=== PATIENT | female | born 1960 | race Caucasian/White ===

== ENCOUNTER 2019-05-12 10:34 | Observation (INO) | payer BC, OTHER ==
[2019-05-12] MEDS ORDERED: ASPIRIN 81 MG PO STA (11:22)
[2019-05-12] MEDS ORDERED: NITROGLYCERIN SL TABS 0.4 MG TAB SUBLINGUAL STA (11:22)
[2019-05-12] MEDS ORDERED: ACETAMINOPHEN TAB 500 MG TAB PO STA (11:23)
[2019-05-12] MEDS: NITROGLYCERIN OINT 1 INCH/GM PACKET TOPICAL STA ×2 (11:46→11:58)
--- NOTE | 2019-05-12 12:02 | ED ---
General Adult HPI - General Chief complaint: Back Pain/Injury Stated complaint: back pain, sweating Time Seen by Provider: 05/12/19 10:40 Source: patient, RN notes reviewed Mode of arrival: ambulatory Limitations: no limitations - History of Present Illness Initial comments: This a 58-year-old female who presents emergency department with past history of high blood pressure and high cholesterol. Patient also states she has a strong family history of heart disease her father having a heart attack at 57 and mother having intermittent her early 60s. Patient states she started having chest pain at about 8:00 this morning and the pain radiated to her back. Patient denied any shortness of breath but didn't mention she was diaphoretic when she was having this pain. Patient denies any nausea. Patient denies any abdominal pain. Patient denies any vomiting or diarrhea. Patient denies headache patient denies numbness weakness. Patient denies any recent fever chills or cough. Patient states currently she still has the chest pressure. - Related Data Home Medications Medication Instructions Recorded Confirmed Atorvastatin [Lipitor] 20 mg PO HS 01/30/16 05/12/19 Triamterene-Hctz 37.5-25Mg 1 tab PO DAILY 01/30/16 05/12/19 [Dyazide 37.5-25 Capsule] amLODIPine [Norvasc] 5 mg PO DAILY 01/30/16 05/12/19 Biotin 5 mg PO DAILY 05/12/19 05/12/19 Cholecalciferol [Vitamin D3 (25 5,000 unit PO DAILY 05/12/19 05/12/19 Mcg = 1000 Iu)] Ranitidine HCl [Zantac] 150 mg PO HS 05/12/19 05/12/19 Vitamin C/Biotin [Hair, Skin and 1 tab PO DAILY 05/12/19 05/12/19 Nails] Allergies Allergy/AdvReac Type Severity Reaction Status Date / Time amoxicillin AdvReac Vomiting Verified 05/12/19 11:10 ciprofloxacin [From Cipro] AdvReac Unknown Verified 05/12/19 11:10 ciprofloxacin HCl AdvReac Unknown Verified 05/12/19 11:10 [From Cipro] ibuprofen AdvReac Unknown Verified 05/12/19 11:10 Review of Systems ROS Statement: Those systems with pertinent positive or pertinent negative responses have been documented in the HPI. ROS Other: All systems not noted in ROS Statement are negative. Past Medical History Past Medical History: Hyperlipidemia, Hypertension History of Any Multi-Drug Resistant Organisms: None Reported Past Surgical History: Hernia Repair Additional Past Surgical History / Comment(s): LEFT OVARY REMOVAL Past Psychological History: No Psychological Hx Reported Smoking Status: Former smoker Past Alcohol Use History: Occasional Past Drug Use History: None Reported General Exam - General Exam Comments Initial Comments: GENERAL: Patient is well-developed and well-nourished. Patient is nontoxic and well- hydrated and is in mild distress. ENT: Neck is soft and supple. No significant lymphadenopathy is noted. Oropharynx is clear. Moist mucous membranes. Neck has full range of motion without eliciting any pain. EYES: The sclera were anicteric and conjunctiva were pink and moist. Extraocular movements were intact and pupils were equal round and reactive to light. Eyelid s were unremarkable. PULMONARY: Unlabored respirations. Good breath sounds bilaterally. No audible rales rhonchi or wheezing was noted. CARDIOVASCULAR: There is a regular rate and rhythm without any murmurs gallops or rubs. ABDOMEN: Soft and nontender with normal bowel sounds. No palpable organomegaly was noted. There is no palpable pulsatile mass. SKIN: Skin is clear with no lesions or rashes and otherwise unremarkable. NEUROLOGIC: Patient is alert and oriented x3. Cranial nerves II through XII are grossly intact. Motor and sensory are also intact. Normal speech, volume and content. Symmetrical smile. MUSCULOSKELETAL: Normal extremities with adequate strength and full range of motion. No lower extremity swelling or edema. No calf tenderness. LYMPHATICS: No significant lymphadenopathy is noted PSYCHIATRIC: Normal psychiatric evaluation. Limitations: no limitations Course Vital Signs 05/12/19 10:38 Temperature 98.1 F Pulse Rate 108 H Respiratory 17 Rate Blood Pressure 142/88 O2 Sat by Pulse 98 Oximetry Medical Decision Making - Medical Decision Making EKG shows normal sinus rhythm at 89 bpm NE interval 262 QRS is 86 QT interval 376 QTC is 457. Patient's EKG shows no ST segment elevation or depression or T wave abnormalities are noted. Patient's chest x-ray showed no acute abnormality. Patient received nitroglycerin sublingual admitted the patient hypotensive but also to the patient's chest pain away completely. Currently the patient is chest pain-free. Because the patient exhibits symptoms of unstable angina I'm starting the patient on heparin. I spoke with the [facility] agreed to admit the patient admitted the patient I continued heparin and aspirin and Nitropaste on the floor. I consult cardiology. - Lab Data Result diagrams: 05/12/19 11:45 05/12/19 11:45 Lab Results 05/12/19 05/12/19 05/12/19 Range/Units 11:45 11:45 11:45 WBC 9.8 (3.8-10.6) k/uL RBC 4.89 (3.80-5.40) m/uL Hgb 14.6 (11.4-16.0) gm/dL Hct 40.1 (34.0-46.0) % MCV 81.9 (80.0-100.0) fL MCH 29.9 (25.0-35.0) pg MCHC 36.5 (31.0-37.0) g/dL RDW 16.8 H (11.5-15.5) % Plt Count 276 (150-450) k/uL Neutrophils % 74 % Lymphocytes % 20 % Monocytes % 4 % Eosinophils % 1 % Basophils % 0 % Neutrophils # 7.2 (1.3-7.7) k/uL Lymphocytes # 1.9 (1.0-4.8) k/uL Monocytes # 0.4 (0-1.0) k/uL Eosinophils # 0.1 (0-0.7) k/uL Basophils # 0.0 (0-0.2) k/uL Anisocytosis Slight PT (9.0-12.0) sec INR (<1.2) APTT (22.0-30.0) sec Sodium 136 L (137-145) mmol/L Potassium 3.9 (3.5-5.1) mmol/L Chloride 98 (98-107) mmol/L Carbon Dioxide 26 (22-30) mmol/L Anion Gap 12 mmol/L BUN 11 (7-17) mg/dL Creatinine 0.75 (0.52-1.04) mg/dL Est GFR (CKD-EPI)AfAm >90 (>60 ml/min/1.73 sqM) Est GFR (CKD-EPI)NonAf 89 (>60 ml/min/1.73 sqM) Glucose 133 H (74-99) mg/dL Calcium 10.5 H (8.4-10.2) mg/dL Magnesium 2.0 (1.6-2.3) mg/dL Total Bilirubin 0.9 (0.2-1.3) mg/dL AST 31 (14-36) U/L ALT 42 (9-52) U/L Alkaline Phosphatase 94 (38-126) U/L Troponin I (0.000-0.034) ng/mL NT-Pro-B Natriuret Pep 20 pg/mL Total Protein 7.5 (6.3-8.2) g/dL Albumin 4.4 (3.5-5.0) g/dL 05/12/19 05/12/19 Range/Units 11:45 11:45 WBC (3.8-10.6) k/uL RBC (3.80-5.40) m/uL Hgb (11.4-16.0) gm/dL Hct (34.0-46.0) % MCV (80.0-100.0) fL MCH (25.0-35.0) pg MCHC (31.0-37.0) g/dL RDW (11.5-15.5) % Plt Count (150-450) k/uL Neutrophils % % Lymphocytes % % Monocytes % % Eosinophils % % Basophils % % Neutrophils # (1.3-7.7) k/uL Lymphocytes # (1.0-4.8) k/uL Monocytes # (0-1.0) k/uL Eosinophils # (0-0.7) k/uL Basophils # (0-0.2) k/uL Anisocytosis PT 9.4 (9.0-12.0) sec INR 0.9 (<1.2) APTT 25.4 (22.0-30.0) sec Sodium (137-145) mmol/L Potassium (3.5-5.1) mmol/L Chloride (98-107) mmol/L Carbon Dioxide (22-30) mmol/L Anion Gap mmol/L BUN (7-17) mg/dL Creatinine (0.52-1.04) mg/dL Est GFR (CKD-EPI)AfAm (>60 ml/min/1.73 sqM) Est GFR (CKD-EPI)NonAf (>60 ml/min/1.73 sqM) Glucose (74-99) mg/dL Calcium (8.4-10.2) mg/dL Magnesium (1.6-2.3) mg/dL Total Bilirubin (0.2-1.3) mg/dL AST (14-36) U/L ALT (9-52) U/L Alkaline Phosphatase (38-126) U/L Troponin I <0.012 (0.000-0.034) ng/mL NT-Pro-B Natriuret Pep pg/mL Total Protein (6.3-8.2) g/dL Albumin (3.5-5.0) g/dL Critical Care Time Critical Care Time: Yes Total Critical Care Time: 35 Disposition Clinical Impression: Unstable angina Disposition: ADMITTED IP TO THIS HOSP Referrals: Cyrus Peck DO [Primary Care Provider] - 1-2 days Time of Disposition: 13:07
[2019-05-12 12:13] LABS: Anisocytosis Slight; Basophils % (A) 0 %; Eosinophils # (A) 0.1 k/uL (0-0.7); Eosinophils % (A) 1 %; HCT 40.1 % (34.0-46.0); HGB 14.6 gm/dL (11.4-16.0); Lymphocytes # (A) 1.9 k/uL (1.0-4.8); Lymphocytes % (A) 20 %; MCH 29.9 pg (25.0-35.0); MCHC 36.5 g/dL (31.0-37.0); MCV 81.9 fL (80.0-100.0); Mean Platelet Volume 6.5; Monocytes # (A) 0.4 k/uL (0-1.0); Monocytes % (A) 4 %; Neutrophils # (A) 7.2 k/uL (1.3-7.7); Neutrophils % (A) 74 %; Platelet Count 276 k/uL (150-450); RBC 4.89 m/uL (3.80-5.40); RDW 16.8 % (11.5-15.5); WBC 9.8 k/uL (3.8-10.6)
--- NOTE | 2019-05-12 12:24 | XR ---
EXAMINATION TYPE: XR chest 2V DATE OF EXAM: 05/12/2019 COMPARISON: 01/30/2016 INDICATION: Chest pain TECHNIQUE: Frontal and lateral views of the chest are obtained. FINDINGS: The heart size is normal. The pulmonary vasculature is normal. The lungs are clear. IMPRESSION: 1. No acute pulmonary process.
[2019-05-12 12:25] LABS: ALT 42 U/L (9-52); AST 31 U/L (14-36); African American GFR (CKD) >90 (>60 ml/min/1.73 sqM); Albumin 4.4 g/dL (3.5-5.0); Alkaline Phosphatase 94 U/L (38-126); Anion Gap 12 mmol/L; Blood Urea Nitrogen 11 mg/dL (7-17); Calcium 10.5 mg/dL (8.4-10.2); Carbon Dioxide 26 mmol/L (22-30); Chloride 98 mmol/L (98-107); Glucose 133 mg/dL (74-99); Potassium 3.9 mmol/L (3.5-5.1); Sodium 136 mmol/L (137-145); Total Bilirubin 0.9 mg/dL (0.2-1.3); Total Protein 7.5 g/dL (6.3-8.2)
[2019-05-12 12:32] LABS: INR 0.9 (<1.2); Partial Thromboplastin Time 25.4 sec (22.0-30.0); Prothrombin Time 9.4 sec (9.0-12.0)
[2019-05-12] MEDS ORDERED: HEPARIN SODIUM,PORCINE 5,000 UNIT/ML 1 ML VIAL IV ONE (13:05)
[2019-05-12] MEDS ORDERED: NITROGLYCERIN SL TABS 0.4 MG TAB SUBLINGUAL PRN (13:07)
[2019-05-12] MEDS ORDERED: HEPARIN SOD,PORK IN 0.45% NACL 25,000 UNIT in 0.45% NACL 1 250ML.BAG IV SCH (13:15)
--- NOTE | 2019-05-12 14:18 | P.CRDCN ---
History of Present Illness History of present illness: This is a pleasant 58-year-old female past medical history significant for hypertension and dyslipidemia. She denies prior history of coronary artery disease or diabetes mellitus. 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 We have hiram asked to see her in consultation for chest pain. She states starting on Sunday she noticed a nagging discomfort in her lower back. She felt as though she pulled a muscle or strained herself somehow. The discomfort was slowly starting to get better. However this morning while at work she noticed a different discomfort in the upper mid back between her shoulder blades like someone was punching her. It then started radiating around to the front of her chest. This was quite persistent and constant for over an hour. She then started feeling dizzy and became diaphoretic. There was no associated shortness of breath, palpitations, nausea or vomiting. Not made worse by deep breathing or movement of the torso. 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 Her chest pain did not increase while walking over. Upon arrival she was having active chest pain. She was given aspirin, nitro and heparin infusion. Her pain slowly started to subside in her chest as well as in the back. She is seen and examined sitting up in bed in no acute distress and chest pain free. No reproducible pain. She does offer that he stress level has been significantly increased over the previous 2 weeks. Regularly, outside of this recent back injury, she is quite active and walks frequently without chest pain or shortness of breath. EKG reveals sinus mechanism with no acute ST or T-wave abnormalities, heart rate 89. Chest xray negative for an acute cardiopulmonary process. Laboratory data reviewed, CBC unremarkable, sodium 136, potassium 3.9, creatinine 0.75, magnesium 2.0, cardiac enzymes negative x1, proBNP 20. Current daily cardiac medications include atorvastatin 20 mg daily, dyazide 37.5/25 mg daily and amlodipine 5 mg daily. At the time of my exam: CONSTITUTIONAL: Denies fever. Denies chills. EYES: Denies blurred vision. Denies vision changes. Denies eye pain. EARS, NOSE, MOUTH & THROAT: Denies headache. Denies sore throat. Denies ear pain. CARDIOVASCULAR: Denies chest pain. Denies shortness of breath. Denies orthopnea. Denies PND. Denies palpitations. RESPIRATORY: Denies cough. GASTROINTESTINAL: Denies abdominal pain. Denies diarrhea. Denies constipation. Denies nausea. Denies vomiting. MUSCULOSKELETAL: Denies myalgias. INTEGUMENTARY: Denies pruitis. Denies rash. NEUROLOGIC: Denies numbness. Denies tingling. Denies weakness. PSYCHIATRIC: Denies anxiety. Denies depression. ENDOCRINE: Denies fatigue. Denies weight change. Denies polydipsia. Denies polyurina. GENITOURINARY: Denies burning, hematuria or urgency with micturation. HEMATOLOGIC: Denies history of anemia. Denies bleeding. Blood pressure 108/71 heart rate 81 afebrile maintaining oxygen saturation on room air GENERAL: This is a 58-year-old female in no apparent distress at the time of my examination. HEENT: Head is atraumatic, normocephalic. Pupils are equal, round. Sclerae anicteric. Conjunctivae are clear. Mucous membranes of the mouth are moist. Neck is supple. There is no jugular venous distention. No carotid bruit is heard. LUNGS: Clear to auscultation no wheezes, rales or rhonchi. No chest wall tenderness is noted on palpation or with deep breathing. HEART: Regular rate and rhythm without murmurs, rubs or gallops. S1 and S2 heard. ABDOMEN: Soft, nontender. Bowel sounds are heard. No organomegaly noted. EXTREMITIES: No evidence of peripheral edema and no calf tenderness noted. VASCULAR: Radial and dorsalis pedis pulses palpated, no evidence of clubbing. NEUROLOGIC: Patient is awake, alert and oriented x3. ASSESSMENT Chest pain, atypical for angina. Hypertension Dyslipidemia PLAN Continue to obtain serial cardiac enzymes to rule out an acute event. Check lipid profile. Obtain 2D echocardiogram to assess cardiac structure and function. Decrease aspirin to 81 mg daily. Further recommendations to follow based on clinical course. Discussed with her the thoughts of undergoing a stress test in the morning if enzymes are normal and she is agreeable to this plan. If abnormality will pursue coronary angiography. Thank you kindly for this consultation. Nurse Practitioner note has been reviewed, I agree with a documented findings and plan of care. Patient was seen and examined. Past Medical History Past Medical History: Hyperlipidemia, Hypertension History of Any Multi-Drug Resistant Organisms: None Reported Past Surgical History: Hernia Repair Additional Past Surgical History / Comment(s): LEFT OVARY REMOVAL Past Psychological History: No Psychological Hx Reported Smoking Status: Former smoker Past Alcohol Use History: Occasional Past Drug Use History: None Reported Medications and Allergies Home Medications Medication Instructions Recorded Confirmed Type Atorvastatin [Lipitor] 20 mg PO HS 01/30/16 05/12/19 History Triamterene-Hctz 37.5-25Mg 1 tab PO DAILY 01/30/16 05/12/19 History [Dyazide 37.5-25 Capsule] amLODIPine [Norvasc] 5 mg PO DAILY 01/30/16 05/12/19 History Biotin 5 mg PO DAILY 05/12/19 05/12/19 History Cholecalciferol [Vitamin D3 (25 5,000 unit PO DAILY 05/12/19 05/12/19 History Mcg = 1000 Iu)] Ranitidine HCl [Zantac] 150 mg PO HS 05/12/19 05/12/19 History Vitamin C/Biotin [Hair, Skin and 1 tab PO DAILY 05/12/19 05/12/19 History Nails] Allergies Allergy/AdvReac Type Severity Reaction Status Date / Time amoxicillin AdvReac Vomiting Verified 05/12/19 11:10 ciprofloxacin [From Cipro] AdvReac Unknown Verified 05/12/19 11:10 ciprofloxacin HCl AdvReac Unknown Verified 05/12/19 11:10 [From Cipro] ibuprofen AdvReac Unknown Verified 05/12/19 11:10 Physical Exam Vitals: Vital Signs Temp Pulse Resp BP Pulse Ox 05/12/19 13:00 81 16 108/71 96 05/12/19 12:30 72 16 111/72 93 L 05/12/19 12:00 81 16 114/78 95 05/12/19 11:30 96 16 130/86 93 L 05/12/19 10:38 98.1 F 108 H 17 142/88 98 Intake and Output 05/11/19 05/12/19 05/12/19 22:59 06:59 14:59 Other: Weight 97.069 kg Results 05/12/19 11:45 05/12/19 11:45 Cardiac Enzymes 05/12/19 05/12/19 Range/Units 11:45 11:45 AST 31 (14-36) U/L Troponin I <0.012 (0.000-0.034) ng/mL Coagulation 05/12/19 Range/Units 11:45 PT 9.4 (9.0-12.0) sec APTT 25.4 (22.0-30.0) sec CBC 05/12/19 Range/Units 11:45 WBC 9.8 (3.8-10.6) k/uL RBC 4.89 (3.80-5.40) m/uL Hgb 14.6 (11.4-16.0) gm/dL Hct 40.1 (34.0-46.0) % Plt Count 276 (150-450) k/uL Comprehensive Metabolic Panel 05/12/19 Range/Units 11:45 Sodium 136 L (137-145) mmol/L Potassium 3.9 (3.5-5.1) mmol/L Chloride 98 (98-107) mmol/L Carbon Dioxide 26 (22-30) mmol/L BUN 11 (7-17) mg/dL Creatinine 0.75 (0.52-1.04) mg/dL Glucose 133 H (74-99) mg/dL Calcium 10.5 H (8.4-10.2) mg/dL AST 31 (14-36) U/L ALT 42 (9-52) U/L Alkaline Phosphatase 94 (38-126) U/L Total Protein 7.5 (6.3-8.2) g/dL Albumin 4.4 (3.5-5.0) g/dL Current Medications Generic Name Dose Route Start Last Admin Trade Name Freq PRN Reason Stop Dose Admin Aspirin 325 mg 05/13/19 09:00 Aspirin PO DAILY [facility] Heparin Sodium/Sodium Chloride 250 mls @ 9.998 mls/hr 05/12/19 13:15 05/12/19 13:43 25,000 unit/ Sodium Chloride IV 10.3 units/kg/hr .Q24H AZALIA 9.998 mls/hr Administration Protocol 10.3 UNITS/KG/HR Nitroglycerin 0.4 mg 05/12/19 13:07 Nitrostat SUBLINGUAL Q5M PRN Chest Pain Nitroglycerin 1 inch 05/12/19 18:00 Nitro-Bid Oint TOPICAL Q6HR AZALIA Intake and Output 05/11/19 05/12/19 05/12/19 22:59 06:59 14:59 Other: Weight 97.069 kg Patient Weight 05/13/19 06:59 Weight 97.069 kg 05/12/19 11:45 05/12/19 11:45
--- NOTE | 2019-05-12 15:34 | ECHOF ---
Referral Reason:cp MEASUREMENTS -------- HEIGHT: 175.3 cm WEIGHT: 97.1 kg BP: 108/71 RVIDd: 2.9 cm (< 3.3) IVSd: 1.3 cm (0.6 - 1.1) LVIDd: 4.3 cm (3.9 - 5.3) LVPWd: 1.3 cm (0.6 - 1.1) IVSs: 1.7 cm LVIDs: 3.1 cm LVPWs: 1.7 cm LA Diam: 3.2 cm (2.7 - 3.8) LAESV Index (A-L): 17.98 ml/m Ao Diam: 3.4 cm (2.0 - 3.7) AV Cusp: 2.1 cm (1.5 - 2.6) MV EXCURSION: 15.618 mm (> 18.000) MV EF SLOPE: 86 mm/s (70 - 150) EPSS: 0.5 cm MV E Ricky: 0.90 m/s MV DecT: 171 ms MV A Ricky: 0.93 m/s MV E/A Ratio: 0.97 TAPSE: 16.59 mm FINDINGS -------- Sinus rhythm. This was a technically good study. The left ventricular size is normal. There is mild concentric left ventricular hypertrophy. Overa ll left ventricular systolic function is normal with, an EF between 55 - 60 %. The diastolic fillin g pattern is normal for the age of the patient 11.16. The right ventricle is normal in size. Normal LA size by volume 22+/-6 ml/m2. The right atrial size is normal. Interatrial and interventricular septum intact. The aortic valve is trileaflet, and appears structurally normal. No aortic stenosis or regurgitation. The mitral valve is normal. There is trace mitral regurgitation. The tricuspid valve appears structurally normal. Trace tricuspid regurgitation present. There is no pulmonic regurgitation present. The aortic root size is normal. Normal inferior vena cava with normal inspiratory collapse consistent with estimated right atrial pre ssure of 5 mmHg. There is no pericardial effusion. CONCLUSIONS -------- 1. Sinus rhythm. 2. This was a technically good study. 3. The left ventricular size is normal. 4. There is mild concentric left ventricular hypertrophy. 5. Overall left ventricular systolic function is normal with, an EF between 55 - 60 %. 6. The diastolic filling pattern is normal for the age of the patient 11.16 7. The right ventricle is normal in size. 8. Normal LA size by volume 22+/-6 ml/m2. 9. The aortic valve is trileaflet, and appears structurally normal. No aortic stenosis or regurgitati on. 10. There is trace mitral regurgitation. 11. Trace tricuspid regurgitation present. 12. There is no pulmonic regurgitation present. 13. The aortic root size is normal. 14. Normal inferior vena cava with normal inspiratory collapse consistent with estimated right atrial pressure of 5 mmHg. 15. There is no pericardial effusion. INSULATION HOSEMAN: Dara Cyr RDCS
[2019-05-12] MEDS ORDERED: NITROGLYCERIN OINT 1 INCH/GM PACKET TOPICAL SCH (18:00)
[2019-05-12 20:07] VITALS: BMI 31.6
[2019-05-12] MEDS ORDERED: FAMOTIDINE 20 MG TAB PO SCH (21:00)
[2019-05-12] MEDS ORDERED: ATORVASTATIN 20 MG TAB PO SCH (21:00)
--- NOTE | 2019-05-12 22:01 | P.HPIM ---
History of Present Illness H&P Date: 05/12/19 Chief Complaint: Chest pressure History of presenting to been: This is a very pleasant 58-year-old patient of Dr. Peck. Chronic stable medical conditions include hyperlipidemia, hypertension, GERD. Patient normally does get low back spasms. Patient is having the same on Sunday. Subsequently she started having episodes of chest discomfort in the central chest associated with perspiration. No shortness of breath. She was dizzy. Did not feel tired. Symptoms last for good 2 or 3 hours by the time she came to the ER she was given extra placed and nitroglycerin sublingual and patient passed out. Patient blood pressure dropped down to about 50-60 systolic. Patient did turn around. No further chest pain. Patient had a stress test several years ago. Otherwise patient rather active. Admitted for unstable angina. Review of systems: GEN.: None EYES: None HEENT: None NECK: None RESPIRATORY: None CARDIOVASCULAR: As above GASTROINTESTINAL: Occasional heartburn GENITOURINARY: None MUSCULOSKELETAL: None LYMPHATICS: None HEMATOLOGICAL: None PSYCHIATRY: None NEUROLOGICAL: None Social history: Lives alone. Alcohol occasionally. No smoking. Physical examination: VITAL SIGNS: 97.6, 85, 122/76, 99% on room air GENERAL: BMI 31.6, sitting up in bed, comfortable. EYES: Pupils equal. Conjunctiva normal. HEENT: External appearance of nose and ears normal, oral cavity grossly normal. NECK: JVD not raised; masses not palpable. HEART: First and second heart sounds are normal; no edema. LUNGS: Respiratory rate normal; clear to auscultation. ABDOMEN: Soft, nontender, liver spleen not palpable, no masses palpable. PSYCH: Alert and oriented x3; mood and affect normal. NEUROLOGICAL: Cranial nerves grossly intact; no facial asymmetry, power and sensation grossly intact. LYMPHATICS: No lymph nodes palpable in the axilla and neck INVESTIGATIONS, reviewed in the clinical context: White count 9.8 hemoglobin 14.6 potassium 3.9 creatinine 0.75 Troponin I 2 negative 2-D echo shows EF of 55-60%. No wall motion abnormality reported EKG tracing personally reviewed by me-normal sinus rhythm Chest x-ray film personally reviewed by me-lung dunbar are clear Assessment: -Possible Unstable angina in a patient whose risk factors include obesity, hyperlipidemia, hypertension -Obesity BMI 30.1.6 -Hyperlipidemia -Essential hypertension -GERD -Chronic lower back muscle spasms Plan: Serial cardiac enzymes in place. Patient is on aspirin. Nitrates. Patient be nothing by mouth from midnight for possible stress test. Home medications are renewed. Cardiology was consulted. Care was discussed with the patient. Questions were answered. Past Medical History Past Medical History: Hyperlipidemia, Hypertension Additional Past Medical History / Comment(s): gerd History of Any Multi-Drug Resistant Organisms: None Reported Past Surgical History: Hernia Repair Additional Past Surgical History / Comment(s): LEFT OVARY REMOVAL Additional Past Anesthesia/Blood Transfusion Reaction / Comment(s): need alot of anesthesia, no blood transfusion Past Psychological History: No Psychological Hx Reported Smoking Status: Former smoker Past Alcohol Use History: Occasional Past Drug Use History: None Reported - Past Family History Mother Family Medical History: Cancer, CVA/TIA, Hyperlipidemia, Hypertension, Myocardial Infarction ([place]) Additional Family Medical History / Comment(s): lung cancer Father History Unknown: Yes Family Medical History: Cancer, Mitral Valve Prolapse (MVP) Medications and Allergies Home Medications Medication Instructions Recorded Confirmed Type Atorvastatin [Lipitor] 20 mg PO HS 01/30/16 01/30/16 History Triamterene-Hctz 37.5-25Mg 1 tab PO DAILY 01/30/16 01/30/16 History [Dyazide 37.5-25 Capsule] amLODIPine [Norvasc] 5 mg PO DAILY 01/30/16 01/30/16 History Biotin 5 mg PO DAILY 05/12/19 History Cholecalciferol [Vitamin D3 (25 5,000 unit PO DAILY 05/12/19 History Mcg = 1000 Iu)] Ranitidine HCl [Zantac] 150 mg PO HS 05/12/19 History Vitamin C/Biotin [Hair, Skin and 1 tab PO DAILY 05/12/19 History Nails] Allergies Allergy/AdvReac Type Severity Reaction Status Date / Time amoxicillin AdvReac Vomiting Verified 05/12/19 19:47 ciprofloxacin [From Cipro] AdvReac Unknown Verified 05/12/19 19:47 ciprofloxacin HCl AdvReac Unknown Verified 05/12/19 19:47 [From Cipro] ibuprofen AdvReac Unknown Verified 05/12/19 19:47 Physical Exam Vitals: Vital Signs Temp Pulse Pulse Resp BP BP Pulse Ox 05/12/19 20:00 85 05/12/19 19:01 97.6 F 85 165/85 99 05/12/19 18:00 73 16 122/76 99 05/12/19 17:30 67 15 134/82 98 05/12/19 17:00 70 18 116/69 05/12/19 16:30 66 17 121/78 99 05/12/19 16:00 69 17 120/81 100 05/12/19 15:30 73 18 127/77 97 05/12/19 15:00 71 18 134/85 99 05/12/19 14:30 73 17 126/84 100 05/12/19 14:00 70 17 113/74 97 05/12/19 13:30 74 16 104/75 96 05/12/19 13:00 81 16 108/71 96 05/12/19 12:30 72 16 111/72 93 L 05/12/19 12:00 81 16 114/78 95 05/12/19 11:30 96 16 130/86 93 L 05/12/19 10:38 98.1 F 108 H 17 142/88 98 Intake and Output 05/12/19 05/12/19 05/12/19 06:59 14:59 22:59 Intake Total 0 Balance 0 Intake: Oral 0 Other: Weight 97.069 kg Results CBC & Chem 7: 05/12/19 11:45 05/12/19 11:45 Labs: Abnormal Lab Results - Last 24 Hours (Table) 05/12/19 05/12/19 Range/Units 11:45 11:45 RDW 16.8 H (11.5-15.5) % Sodium 136 L (137-145) mmol/L Glucose 133 H (74-99) mg/dL Calcium 10.5 H (8.4-10.2) mg/dL Thrombosis Risk Factor Assmnt - Choose All That Apply Any of the Below Risk Factors Present?: No
[2019-05-13 00:11] VITALS: RESP 18
[2019-05-13 01:55] LABS: Cholesterol 220 mg/dL (<200); HDL Cholesterol 55 mg/dL (40-60); LDL Cholesterol,Calculated 129 mg/dL (0-99); Triglycerides 180 mg/dL (<150)
--- NOTE | 2019-05-13 08:47 | P.PN ---
Subjective This is a pleasant 58-year-old female past medical history significant for hypertension and dyslipidemia. She denies prior history of coronary artery disease or diabetes mellitus. 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 She is seen and examined sitting up in bed. She has had no further symptoms of chest discomfort since arriving at the hospital. She also denies shortness of breath, dizziness or palpitations. Blood pressure 126/80 heart rate 79 afebrile maintaining oxygen saturation on room air. Laboratory data revie wed, cardiac enzymes negative 3, LDL 129. Currently maintained on Dyazide 37.5/25 mg daily, atorvastatin 20 mg at bedtime, aspirin 81 mg daily and amlodipine 5 mg daily. Echocardiogram obtained reveals preserved LV systolic function with ejection fraction 55-60%, mild concentric left ventricular hypertrophy. GENERAL: This is a 58-year-old female in no apparent distress at the time of my examination. HEENT: Head is atraumatic, normocephalic. Pupils are equal, round. Sclerae anicteric. Conjunctivae are clear. Mucous membranes of the mouth are moist. Neck is supple. There is no jugular venous distention. No carotid bruit is heard. LUNGS: Clear to auscultation no wheezes, rales or rhonchi. No chest wall tenderness is noted on palpation or with deep breathing. HEART: Regular rate and rhythm without murmurs, rubs or gallops. S1 and S2 heard. EXTREMITIES: No evidence of peripheral edema and no calf tenderness noted. ASSESSMENT Chest pain, atypical for angina. Hypertension Dyslipidemia PLAN Proceed with stress echocardiogram to assess for stress-induced ischemia. Increase atorvastatin to 40 mg at bedtime. If stress test is normal she may be discharged from a cardiac perspective. If abnormal we will consider coronary angiography. Follow-up in the office with Dr. Lacey in 2 weeks. Nurse Practitioner note has been reviewed, I agree with a documented findings and plan of care. Patient was seen and examined. Objective - Vital Signs Vital signs: Vital Signs Temp 97.9 F 05/13/19 07:25 Pulse 79 05/13/19 07:25 Resp 18 05/13/19 07:25 BP 126/80 05/13/19 07:25 Pulse Ox 96 05/13/19 07:25 Intake & Output 05/12/19 05/13/19 05/13/19 18:59 06:59 18:59 Intake Total 0 120 Balance 0 120 Weight 97.069 kg Intake: Oral 0 120 - Labs CBC & Chem 7: 05/12/19 11:45 05/12/19 11:45 Labs: Abnormal Lab Results - Last 24 Hours (Table) 05/12/19 05/12/19 05/12/19 Range/Units 11:45 11:45 11:45 RDW 16.8 H (11.5-15.5) % APTT (22.0-30.0) sec Sodium 136 L (137-145) mmol/L Glucose 133 H (74-99) mg/dL Calcium 10.5 H (8.4-10.2) mg/dL Triglycerides 180 H (<150) mg/dL Cholesterol 220 H (<200) mg/dL LDL Cholesterol, Calc 129 H (0-99) mg/dL 05/13/19 05/13/19 Range/Units 00:56 06:47 RDW (11.5-15.5) % APTT 49.1 H 38.9 H (22.0-30.0) sec Sodium (137-145) mmol/L Glucose (74-99) mg/dL Calcium (8.4-10.2) mg/dL Triglycerides (<150) mg/dL Cholesterol (<200) mg/dL LDL Cholesterol, Calc (0-99) mg/dL
[2019-05-13] MEDS ORDERED: ASPIRIN 81 MG PO SCH (09:00)
[2019-05-13] MEDS ORDERED: ASPIRIN 325 MG TAB PO SCH (09:00)
[2019-05-13] MEDS ORDERED: amLODIPine 5 MG TAB PO SCH (09:00)
[2019-05-13] MEDS ORDERED: TRIAMTERENE-HCTZ 37.5-25MG 1 EACH CAP PO SCH (09:00)
[2019-05-13 11:10] VITALS: BP 118/77; PULSE 77; TEMP 97.6
--- NOTE | 2019-05-13 12:45 | ECHOS ---
STRESS ECHOCARDIOGRAM INDICATIONS: Chest pain. BASELINE HEART RATE: 75 BASELINE BLOOD PRESSURE: 115/66 MAXIMUM HEART RATE: 160 MAXIMUM BLOOD PRESSURE: 195/94 85% MPHR: 139 100% MPHR: 163 METS: 6.2 MAXIMUM STAGE REACHED: 2 TOTAL EXERCISE TIME: 5:03 CLINICAL INFORMATION: Baseline rhythm is sinus mechanism rate 75, normal axis and intervals. Normal electrocardiogram. Baseline blood pressure 115/66 mmHg. Patient status post protocol for 5 minute 3 seconds reaching a peak rate 160 beats per minute which is equal to 98% maximum predicted heart rate. Peak blood pressure 195/94 mmHg. Test was terminated due to fatigue. There was no chest pain. Electrocardiographic monitoring revealed occasional PVCs with couplets and triplets. There was no evidence of diagnostic ischemic ST deviation. FINDINGS: Baseline echocardiogram revealed normal wall motion. At peak exercise, there was normal wall motion augmentation with no hypokinesis or dyskinesis. CONCLUSION: 1. Decreased exercise tolerance with normal echocardiograph response to exercise. 2. Occasional premature ventricular contractions with couplets and triplets. 3. Normal stress echocardiogram with no evidence of stress-induced ischemia. MMODL / IJN: [id number] /
[2019-05-13] MEDS ORDERED: ATORVASTATIN 40 MG TAB PO SCH (21:00)
--- NOTE | 2019-05-14 00:52 | P.DS ---
Providers Date of admission: 05/12/19 13:07 Expected date of discharge: 05/13/19 Attending physician: Zak Diaz Consults: 05/12/19 13:07 Consult Physician Urgent Consulting Provider: [facility] Consult Reason/Comments: Unstable angina Do you want consulting provider notified?: Yes Primary care physician: Cyrus Rezasaint joseph londonotoniel [facility] Course: Chief Complaint: Chest pressure Hospital course: This is a very pleasant 58-year-old patient of Dr. Peck. Chronic stable medical conditions include hyperlipidemia, hypertension, GERD. Patient normally does get low back spasms. Patient is having the same on Sunday. Subsequently she started having episodes of chest discomfort in the central chest associated with perspiration. No shortness of breath. She was dizzy. Did not feel tired. Symptoms last for good 2 or 3 hours by the time she came to the ER she was given extra placed and nitroglycerin sublingual and patient passed out. Patient blood pressure dropped down to about 50-60 systolic. Patient did turn around. No further chest pain. Patient had a stress test several years ago. Otherwise patient rather active. Admitted for unstable angina. Troponins came back negative. Stress echocardiogram was negative for ischemia. Cleared by cardiology. Care was discussed with the patient Consultation: Dr. Lacey from cardiology Physical examination: VITAL SIGNS: 97.6, 77, 18, 11 8/77, 97% room air GENERAL: BMI 31.6, sitting up in bed, comfortable. EYES: Pupils equal. Conjunctiva normal. HEENT: External appearance of nose and ears normal, oral cavity grossly normal. NECK: JVD not raised; masses not palpable. HEART: First and second heart sounds are normal; no edema. LUNGS: Respiratory rate normal; clear to auscultation. ABDOMEN: Soft, nontender, liver spleen not palpable, no masses palpable. PSYCH: Alert and oriented x3; mood and affect normal. INVESTIGATIONS, reviewed in the clinical context: White count 9.8 hemoglobin 14.6 potassium 3.9 creatinine 0.75 Troponin I 2 negative 2-D echo shows EF of 55-60%. No wall motion abnormality reported EKG tracing personally reviewed by me-normal sinus rhythm Chest x-ray film personally reviewed by me-lung dunbar are clear Stress echocardiogram negative Discharge diagnosis: -Left anterior chest wall pain, could be musculoskeletal -Obesity BMI 30.1.6 -Hyperlipidemia -Essential hypertension -GERD -Chronic lower back muscle spasms Disposition: Home Patient Condition at Discharge: Stable Plan - Discharge Summary New Discharge Prescriptions: New Aspirin 81 mg PO DAILY chew Chlorthalidone 25 mg PO DAILY #30 tab Atorvastatin [Lipitor] 40 mg PO HS #30 tab Nitroglycerin Sl Tabs [Nitrostat] 0.4 mg SUBLINGUAL Q5M PRN #25 tab PRN Reason: Chest Pain Continue amLODIPine [Norvasc] 5 mg PO DAILY Ranitidine HCl [Zantac] 150 mg PO HS Biotin 5 mg PO DAILY Vitamin C/Biotin [Hair, Skin and Nails] 1 tab PO DAILY Discontinued Atorvastatin [Lipitor] 20 mg PO HS Triamterene-Hctz 37.5-25Mg [Dyazide 37.5-25 Capsule] 1 tab PO DAILY Cholecalciferol [Vitamin D3 (25 Mcg = 1000 Iu)] 5,000 unit PO DAILY Discharge Medication List amLODIPine [Norvasc] 5 mg PO DAILY 01/30/16 [History] Biotin 5 mg PO DAILY 05/12/19 [History] Ranitidine HCl [Zantac] 150 mg PO HS 05/12/19 [History] Vitamin C/Biotin [Hair, Skin and Nails] 1 tab PO DAILY 05/12/19 [History] Aspirin 81 mg PO DAILY chew 05/13/19 [Rx] Atorvastatin [Lipitor] 40 mg PO HS #30 tab 05/13/19 [Rx] Chlorthalidone 25 mg PO DAILY #30 tab 05/13/19 [Rx] Nitroglycerin Sl Tabs [Nitrostat] 0.4 mg SUBLINGUAL Q5M PRN #25 tab 05/13/19 [Rx] Follow up Appointment(s)/Referral(s): Luis Eduardo Lacey MD [STAFF PHYSICIAN] - 2 Weeks Cyrus Peck DO [Primary Care Provider] - 1 Week Discharge Disposition: HOME SELF-CARE
== END 2019-05-13 15:17 | disposition home or self-care (01) ==
LOC: EC 10:34 → 1SOBS 13:07
PROVIDERS: ADMIT Hospitalist; ATTEND Hospitalist
DX: R07.89 Other chest pain (principal); I11.9 Hypertensive heart disease without heart failure; E78.5 Hyperlipidemia, unspecified; K21.9 Gastro-esophageal reflux disease without esophagitis; M62.830 Muscle spasm of back; I95.9 Hypotension, unspecified; R55 Syncope and collapse; T46.3X5A Adverse effect of coronary vasodilators, initial encounter; E78.00 Pure hypercholesterolemia, unspecified; R61 Generalized hyperhidrosis; R42 Dizziness and giddiness; E66.9 Obesity, unspecified; Z68.31 Body mass index [BMI] 31.0-31.9, adult; Z79.82 Long term (current) use of aspirin; Z79.899 Other long term (current) drug therapy; Z88.0 Allergy status to penicillin; Z88.1 Allergy status to other antibiotic agents; Z88.6 Allergy status to analgesic agent; Z90.721 Acquired absence of ovaries, unilateral; Z87.891 Personal history of nicotine dependence; Z80.1 Family history of malignant neoplasm of trachea, bronchus and lung; Z82.3 Family history of stroke; Z82.49 Family history of ischemic heart disease and other diseases of the circulatory system
CPT/HCPCS: 96376; 96365; 96366; 99285; 36415; 93005; 93306; 93351; 83880; 80061; 80053; 83735; 84484; 85025; 85610; 85730 ×2; 71046; G0378 ×2; J1644 ×2; Q9950

== ENCOUNTER 2019-11-11 23:44 | Emergency (ER) | payer BC ==
[2019-11-11 23:48] VITALS: RESP 18; TEMP 98.7
[2019-11-12 00:10] LABS: Appearance,Urine Cloudy (Clear); Bacteria,Urine Occasional /hpf; Bilirubin,Urine Negative (Negative); Blood,Urine Trace (Negative); Color,Urine Yellow; Glucose,Urine (UA) Negative (Negative); Ketones,Urine 1+ (Negative); Leukocyte Esterase,Urine Small (Negative); Mucus,Urine Occasional /hpf; Nitrite,Urine Negative (Negative); Protein,Urine Trace (Negative); RBC,Urine 3 /hpf (0-5); Specific Gravity,Urine 1.019 (1.001-1.035); Squamous Epithelial Cell,Urine 12 /hpf (0-4); Urobilinogen,Urine <2.0 mg/dL (<2.0); WBC,Urine 5 /hpf (0-5)
[2019-11-12] MEDS ORDERED: ACETAMINOPHEN TAB 325 MG TAB PO STA (00:20)
--- NOTE | 2019-11-12 00:41 | ED ---
Abdominal Pain HPI - General Chief Complaint: Back Pain/Injury Stated Complaint: Rt Flank Pain Time Seen by Provider: 11/11/19 23:53 Source: patient Mode of arrival: ambulatory Limitations: no limitations - History of Present Illness MD Complaint: flank pain Onset/Timin -: hour(s) Location: R flank Radiation: none Migration to: no migration Severity: moderate Quality: sharp Consistency: constant Improves With: nothing Worsens With: nothing Associated Symptoms: denies other symptoms Treatments Prior to Arrival: NSAIDs, other (Cyclobenzaprine) - Related Data Home Medications Medication Instructions Recorded Confirmed amLODIPine [Norvasc] 5 mg PO DAILY 01/30/16 01/30/16 Biotin 5 mg PO DAILY 05/12/19 Ranitidine HCl [Zantac] 150 mg PO HS 05/12/19 Vitamin C/Biotin [Hair, Skin and 1 tab PO DAILY 05/12/19 Nails] Previous Rx's Medication Instructions Recorded Aspirin 81 mg PO DAILY chew 05/13/19 Atorvastatin [Lipitor] 40 mg PO HS #30 tab 05/13/19 Chlorthalidone 25 mg PO DAILY #30 tab 05/13/19 Nitroglycerin Sl Tabs [Nitrostat] 0.4 mg SUBLINGUAL Q5M PRN #25 tab 05/13/19 Ciprofloxacin HCl [Cipro] 500 mg PO Q12HR #14 tablet 11/12/19 metroNIDAZOLE [Flagyl] 500 mg PO TID #21 tab 11/12/19 Allergies Allergy/AdvReac Type Severity Reaction Status Date / Time amoxicillin AdvReac Vomiting Verified 05/12/19 19:47 ciprofloxacin [From Cipro] AdvReac Unknown Verified 05/12/19 19:47 ciprofloxacin HCl AdvReac Unknown Verified 05/12/19 19:47 [From Cipro] ibuprofen AdvReac Unknown Verified 05/12/19 19:47 Review of Systems ROS Statement: Those systems with pertinent positive or pertinent negative responses have been documented in the HPI. ROS Other: All systems not noted in ROS Statement are negative. Constitutional: Denies: fever, chills Respiratory: Denies: cough, dyspnea Cardiovascular: Denies: chest pain, edema Gastrointestinal: Reports: as per HPI, constipation. Denies: abdominal pain, nausea, vomiting, diarrhea, melena Genitourinary: Denies: dysuria, frequency, hematuria Musculoskeletal: Reports: as per HPI, back pain Skin: Denies: rash Neurological: Denies: headache, weakness Past Medical History Past Medical History: Diabetes Mellitus, Hyperlipidemia, Hypertension Additional Past Medical History / Comment(s): gerd History of Any Multi-Drug Resistant Organisms: None Reported Past Surgical History: Hernia Repair Additional Past Surgical History / Comment(s): LEFT OVARY REMOVAL Additional Past Anesthesia/Blood Transfusion Reaction / Comment(s): need alot of anesthesia, no blood transfusion Past Psychological History: No Psychological Hx Reported Smoking Status: Former smoker Past Alcohol Use History: Occasional Past Drug Use History: None Reported - Past Family History Mother Family Medical History: Cancer, CVA/TIA, Hyperlipidemia, Hypertension, Myocardial Infarction ([place]) Additional Family Medical History / Comment(s): lung cancer Father History Unknown: Yes Family Medical History: Cancer, Mitral Valve Prolapse (MVP) General Exam Limitations: no limitations General appearance: alert, in no apparent distress Head exam: Present: atraumatic, normocephalic Respiratory exam: Present: normal lung sounds bilaterally. Absent: respiratory distress, wheezes, rales, rhonchi, stridor Cardiovascular Exam: Present: regular rate, normal rhythm, normal heart sounds. Absent: systolic murmur, diastolic murmur, rubs, gallop GI/Abdominal exam: Present: soft. Absent: distended, tenderness, guarding, rebound, rigid, mass, pulsatile mass Extremities exam: Present: normal inspection, normal capillary refill. Absent: pedal edema, calf tenderness Back exam: Present: normal inspection, CVA tenderness (R). Absent: CVA tenderness (L), paraspinal tenderness, vertebral tenderness Neurological exam: Present: alert Skin exam: Present: warm, dry, intact, normal color. Absent: rash Course Vital Signs 11/11/19 23:44 Temperature 98.7 F Pulse Rate 97 Respiratory 18 Rate Blood Pressure 154/82 O2 Sat by Pulse 99 Oximetry Medical Decision Making - Lab Data Result diagrams: 11/12/19 00:32 11/12/19 00:32 Lab Results 11/12/19 11/12/19 11/12/19 Range/Units 00:02 00:32 00:32 WBC 20.6 H (3.8-10.6) k/uL RBC 5.12 (3.80-5.40) m/uL Hgb 14.8 (11.4-16.0) gm/dL Hct 41.2 (34.0-46.0) % MCV 80.4 (80.0-100.0) fL MCH 28.9 (25.0-35.0) pg MCHC 36.0 (31.0-37.0) g/dL RDW 12.7 (11.5-15.5) % Plt Count 333 (150-450) k/uL Neutrophils % 85 % Lymphocytes % 8 % Monocytes % 5 % Eosinophils % 1 % Basophils % 0 % Neutrophils # 17.5 H (1.3-7.7) k/uL Lymphocytes # 1.6 (1.0-4.8) k/uL Monocytes # 1.0 (0-1.0) k/uL Eosinophils # 0.2 (0-0.7) k/uL Basophils # 0.0 (0-0.2) k/uL Sodium 131 L (137-145) mmol/L Potassium 3.8 (3.5-5.1) mmol/L Chloride 91 L (98-107) mmol/L Carbon Dioxide 27 (22-30) mmol/L Anion Gap 13 mmol/L BUN 12 (7-17) mg/dL Creatinine 0.77 (0.52-1.04) mg/dL Est GFR (CKD-EPI)AfAm >90 (>60 ml/min/1.73 sqM) Est GFR (CKD-EPI)NonAf 85 (>60 ml/min/1.73 sqM) Glucose 175 H (74-99) mg/dL Calcium 10.8 H (8.4-10.2) mg/dL Total Bilirubin 0.7 (0.2-1.3) mg/dL AST 22 (14-36) U/L ALT 19 (4-34) U/L Alkaline Phosphatase 98 (38-126) U/L Total Protein 8.2 (6.3-8.2) g/dL Albumin 5.0 (3.5-5.0) g/dL Amylase 57 (30-110) U/L Lipase 96 (23-300) U/L Urine Color Yellow Urine Appearance Cloudy H (Clear) Urine pH 7.0 (5.0-8.0) Ur Specific [place] 1.019 (1.001-1.035) Urine Protein Trace H (Negative) Urine Glucose (UA) Negative (Negative) Urine Ketones 1+ H (Negative) Urine Blood Trace H (Negative) Urine Nitrite Negative (Negative) Urine Bilirubin Negative (Negative) Urine Urobilinogen <2.0 (<2.0) mg/dL Ur Leukocyte Esterase Small H (Negative) Urine RBC 3 (0-5) /hpf Urine WBC 5 (0-5) /hpf Ur Squamous Epith Cells 12 H (0-4) /hpf Urine Bacteria Occasional H (None) /hpf Urine Mucus Occasional H (None) /hpf Disposition Clinical Impression: Diverticulitis Disposition: HOME SELF-CARE Condition: Good Instructions (If sedation given, give patient instructions): Diverticulitis (ED) Prescriptions: Ciprofloxacin HCl [Cipro] 500 mg PO Q12HR #14 tablet metroNIDAZOLE [Flagyl] 500 mg PO TID #21 tab Is patient prescribed a controlled substance at d/c from ED?: No Referrals: Cyrus Peck DO [Primary Care Provider] - 1-2 days
[2019-11-12 00:43] LABS: Basophils % (A) 0 %; Eosinophils # (A) 0.2 k/uL (0-0.7); Eosinophils % (A) 1 %; HCT 41.2 % (34.0-46.0); HGB 14.8 gm/dL (11.4-16.0); Lymphocytes # (A) 1.6 k/uL (1.0-4.8); Lymphocytes % (A) 8 %; MCH 28.9 pg (25.0-35.0); MCV 80.4 fL (80.0-100.0); Mean Platelet Volume 6.8; Monocytes % (A) 5 %; Neutrophils # (A) 17.5 k/uL (1.3-7.7); Neutrophils % (A) 85 %; Platelet Count 333 k/uL (150-450); RBC 5.12 m/uL (3.80-5.40); RDW 12.7 % (11.5-15.5); WBC 20.6 k/uL (3.8-10.6)
[2019-11-12 01:00] LABS: ALT 19 U/L (4-34); AST 22 U/L (14-36); African American GFR (CKD) >90 (>60 ml/min/1.73 sqM); Alkaline Phosphatase 98 U/L (38-126); Amylase 57 U/L (30-110); Anion Gap 13 mmol/L; Blood Urea Nitrogen 12 mg/dL (7-17); Calcium 10.8 mg/dL (8.4-10.2); Carbon Dioxide 27 mmol/L (22-30); Chloride 91 mmol/L (98-107); Glucose 175 mg/dL (74-99); Non-African American GFR(CKD) 85 (>60 ml/min/1.73 sqM); Potassium 3.8 mmol/L (3.5-5.1); Sodium 131 mmol/L (137-145); Total Bilirubin 0.7 mg/dL (0.2-1.3); Total Protein 8.2 g/dL (6.3-8.2)
[2019-11-12] MEDS ORDERED: LEVOFLOXACIN 750MG-D5W PMX 750 MG in DEXTROSE/WATER 1 150ML.BAG IVPB STA (01:42)
[2019-11-12] MEDS ORDERED: metroNIDAZOLE-NS PMX 500 MG in SALINE 1 100ML.BAG IVPB STA (01:42)
--- NOTE | 2019-11-12 01:59 | CT ---
EXAMINATION TYPE: CT abdomen pelvis wo con DATE OF EXAM: 11/12/2019 COMPARISON: None HISTORY: right flank pain CT DLP: 861.8 mGycm Automated exposure control for dose reduction was used. Exam was performed from the diaphragm to the floor the pelvis with no contrast. Lung bases are clear. There is no pleural effusion. There is moderate-sized hiatal hernia. Liver sple en stomach pancreas gallbladder appear normal. Bile ducts are not dilated. There is no adrenal mass. Kidneys have normal size and contour. There is no hydronephrosis. There is moderate fat stranding and fluid in the right paracolic gutter. There are multiple diverticula of the ascending colon. There is mild wall thickening. There is no evidence of free air. There is extensive diverticulosis in the remainder of the colon and more severe in the sigmoid colon. Ureters are not dilated. Bladder distends smoothly. There is no inguinal hernia. There is no free flu id in the pelvis. There is no sign of a pelvic mass. Uterus is anteverted. Lumbar spine is intact. Kd ny pelvis is intact. Proximal femurs and hip joints appear normal. The appendix is posterior and appe ars normal. IMPRESSION: Extensive colonic diverticulosis. There is diverticulitis with moderate fat stranding and fluid in the pericolic gutter involving the a scending colon. No drainable fluid collection.
[2019-11-12] MEDS ORDERED: LEVOFLOXACIN 750 MG TAB PO STA (02:21)
[2019-11-12 02:29] VITALS: BP 130/74; PULSE 80
== END 2019-11-12 03:07 | disposition home or self-care (01) ==
LOC: EC 23:44
DX: K57.32 Diverticulitis of large intestine without perforation or abscess without bleeding (principal); I10 Essential (primary) hypertension; E11.9 Type 2 diabetes mellitus without complications; K21.9 Gastro-esophageal reflux disease without esophagitis; Z79.899 Other long term (current) drug therapy; Z88.0 Allergy status to penicillin; Z88.1 Allergy status to other antibiotic agents; Z88.6 Allergy status to analgesic agent; Z87.891 Personal history of nicotine dependence
CPT/HCPCS: 36415; 74176; 80053; 81001; 82150; 83690; 85025; 87086; 96365; 99284

== ENCOUNTER 2020-03-23 07:31 | Emergency (ER) | payer BC ==
[2020-03-23 07:39] VITALS: TEMP 98.5
[2020-03-23] MEDS ORDERED: ONDANSETRON 4 MG/2 ML VIAL IVP STA (07:50)
[2020-03-23] MEDS ORDERED: MORPHINE SULFATE 4 MG/ML SYRINGE IV STA (07:50)
[2020-03-23] MEDS ORDERED: KETOROLAC 30 MG/ML 1 ML VIAL IVP STA (07:50)
[2020-03-23] MEDS ORDERED: SODIUM CHLORIDE 0.9% 1,000 ML IV STA (07:50)
--- NOTE | 2020-03-23 07:57 | ED ---
Abdominal Pain HPI - General Chief Complaint: Abdominal Pain Stated Complaint: poss diverticulitis Time Seen by Provider: 03/23/20 07:40 Source: patient, RN notes reviewed, old records reviewed Mode of arrival: ambulatory Limitations: no limitations - History of Present Illness Initial Comments: Patient's a 59-year-old female presents return today with left-sided abdominal pain since Sunday. Patient reports she was related to diverticulitis. She's been taking Augmentin that she has had redness in emergency prescription by her PCP for diverticulitis flares. She is taking Augmentin since Sunday morning. Patient states that she has had no fevers with this. Complains of worsening pain and concern for bloating and constipation.. She denies any changes in stools or vomiting. Patient reports that she did have a colonoscopy in February. - Related Data Home Medications Medication Instructions Recorded Confirmed amLODIPine [Norvasc] 5 mg PO DAILY 01/30/16 03/23/20 Vitamin C/Biotin [Hair, Skin and 1 tab PO DAILY 05/12/19 03/23/20 Nails] Acetaminophen Tab [Tylenol] 650 mg PO Q4H PRN 03/23/20 03/23/20 Amoxic-Pot Clav 875-125Mg 1 tab PO Q12HR 03/23/20 03/23/20 [Augmentin 875-125] Cinnamon Bark [Cinnamon] 500 mg PO DAILY 03/23/20 03/23/20 Dicyclomine [Bentyl] 10 mg PO Q6H PRN 03/23/20 03/23/20 Famotidine [Pepcid] 20 mg PO HS 03/23/20 03/23/20 Fluticasone Nasal [place] [Flonase 1 spr EA NOSTRIL DAILY PRN 03/23/20 03/23/20 Nasal [place]] Magnesium 200 mg PO DAILY 03/23/20 03/23/20 Potassium Chloride ER [K-Dur 10] 20 meq PO DAILY 03/23/20 03/23/20 Rosuvastatin Calcium [Crestor] 5 mg PO HS 03/23/20 03/23/20 Vitamin A 8,000 unit PO DAILY 03/23/20 03/23/20 Vitamin B Complex 1 cap PO DAILY 03/23/20 03/23/20 metFORMIN HCL [Glucophage] 500 mg PO BID 03/23/20 03/23/20 Previous Rx's Medication Instructions Recorded Chlorthalidone 25 mg PO DAILY #30 tab 05/13/19 Nitroglycerin Sl Tabs [Nitrostat] 0.4 mg SUBLINGUAL Q5M PRN #25 tab 05/13/19 Ciprofloxacin HCl [Cipro] 500 mg PO BID 10 Days #20 tab 03/23/20 bisacodyL [Dulcolax] 10 mg PO ONCE #12 tablet. 03/23/20 metroNIDAZOLE [Flagyl] 500 mg PO TID #30 tab 03/23/20 Allergies Allergy/AdvReac Type Severity Reaction Status Date / Time ibuprofen Allergy Unknown Verified 03/23/20 08:24 amoxicillin AdvReac Vomiting Verified 03/23/20 08:24 ciprofloxacin [From Cipro] AdvReac Unknown Verified 03/23/20 08:24 ciprofloxacin HCl AdvReac Unknown Verified 03/23/20 08:24 [From Cipro] Review of Systems ROS Statement: Those systems with pertinent positive or pertinent negative responses have been documented in the HPI. ROS Other: All systems not noted in ROS Statement are negative. Past Medical History Past Medical History: Diabetes Mellitus, Hyperlipidemia, Hypertension Additional Past Medical History / Comment(s): gerd History of Any Multi-Drug Resistant Organisms: None Reported Past Surgical History: Hernia Repair Additional Past Surgical History / Comment(s): LEFT OVARY REMOVAL Additional Past Anesthesia/Blood Transfusion Reaction / Comment(s): need alot of anesthesia, no blood transfusion Past Psychological History: No Psychological Hx Reported Smoking Status: Former smoker Past Alcohol Use History: Rare Past Drug Use History: None Reported - Past Family History Mother Family Medical History: Cancer, CVA/TIA, Hyperlipidemia, Hypertension, Myocardial Infarction ([place]) Additional Family Medical History / Comment(s): lung cancer Father History Unknown: Yes Family Medical History: Cancer, Mitral Valve Prolapse (MVP) General Exam - General Exam Comments Initial Comments: 51-year-old female. Alert and oriented. No distress. Limitations: no limitations General appearance: alert, in no apparent distress Head exam: Present: atraumatic, normocephalic, normal inspection Eye exam: Present: normal appearance, PERRL, EOMI. Absent: scleral icterus, conjunctival injection, periorbital swelling ENT exam: Present: normal exam, mucous membranes moist Neck exam: Present: normal inspection. Absent: tenderness, meningismus, lymphadenopathy Respiratory exam: Present: normal lung sounds bilaterally. Absent: respiratory distress, wheezes, rales, rhonchi, stridor Cardiovascular Exam: Present: regular rate, normal rhythm, normal heart sounds. Absent: systolic murmur, diastolic murmur, rubs, gallop, clicks GI/Abdominal exam: Present: soft, tenderness (Left lower quadrant tenderness), normal bowel sounds. Absent: distended, guarding, rebound, rigid Extremities exam: Present: normal inspection, full ROM, normal capillary refill. Absent: tenderness, pedal edema, joint swelling, calf tenderness Back exam: Present: normal inspection Neurological exam: Present: alert, oriented X3, CN II-XII intact Psychiatric exam: Present: normal affect, normal mood Skin exam: Present: warm, dry, intact, normal color. Absent: rash Course Vital Signs 03/23/20 03/23/20 07:32 09:50 Temperature 98.5 F Pulse Rate 96 85 Respiratory 18 14 Rate Blood Pressure 143/95 140/80 O2 Sat by Pulse 98 98 Oximetry Medical Decision Making - Medical Decision Making 51-year-old female presents emergency department today with complaints of left- sided abdominal pain. Concern for diverticulitis flareup. On exam Patient does have some left-sided tenderness. No rebound or guarding. Patient was given IV fluids labwork obtained. She's been taking Augmentin for the past 3 days. CBC was relatively unremarkable. Lactic acid is mildly elevated today. Patient's CT on pelvis was completed and shows no evidence of abscess or free air. There is evidence of acute diverticulitis. Patient was informed of these results. Discussed the possible admission if she had been on Augmentin without any significant improvement of symptoms. She states that she preferred to go home but switching her antibiotic to Cipro and Flagyl. I discussed that if anything worsens to return to the ER but to follow-up with her primary care physician and GI specialist. Patient is agreeable as planned. We'll start the Patient on stool softeners and Cipro and Flagyl. She plans to take Ultram that she has been home for pain. - Lab Data Result diagrams: 03/23/20 07:53 03/23/20 07:53 Lab Results 03/23/20 03/23/20 03/23/20 Range/Units 07:53 07:53 07:53 WBC 12.1 H (3.8-10.6) k/uL RBC 4.83 (3.80-5.40) m/uL Hgb 13.8 (11.4-16.0) gm/dL Hct 40.2 (34.0-46.0) % MCV 83.3 (80.0-100.0) fL MCH 28.6 (25.0-35.0) pg MCHC 34.4 (31.0-37.0) g/dL RDW 13.0 (11.5-15.5) % Plt Count 335 (150-450) k/uL Neutrophils % 78 % Lymphocytes % 15 % Monocytes % 5 % Eosinophils % 1 % Basophils % 0 % Neutrophils # 9.4 H (1.3-7.7) k/uL Lymphocytes # 1.8 (1.0-4.8) k/uL Monocytes # 0.6 (0-1.0) k/uL Eosinophils # 0.1 (0-0.7) k/uL Basophils # 0.0 (0-0.2) k/uL PT 9.5 (9.0-12.0) sec INR 0.9 (<1.2) APTT 26.4 (22.0-30.0) sec Sodium (137-145) mmol/L Potassium (3.5-5.1) mmol/L Chloride (98-107) mmol/L Carbon Dioxide (22-30) mmol/L Anion Gap mmol/L BUN (7-17) mg/dL Creatinine (0.52-1.04) mg/dL Est GFR (CKD-EPI)AfAm (>60 ml/min/1.73 sqM) Est GFR (CKD-EPI)NonAf (>60 ml/min/1.73 sqM) Glucose (74-99) mg/dL Plasma Lactic Acid [place] (0.7-2.0) mmol/L Calcium (8.4-10.2) mg/dL Total Bilirubin (0.2-1.3) mg/dL AST (14-36) U/L ALT (4-34) U/L Alkaline Phosphatase (38-126) U/L Total Protein (6.3-8.2) g/dL Albumin (3.5-5.0) g/dL Amylase (30-110) U/L Lipase (23-300) U/L Urine Color Light Yellow Urine Appearance Clear (Clear) Urine pH 6.5 (5.0-8.0) Ur Specific [place] 1.007 (1.001-1.035) Urine Protein Negative (Negative) Urine Glucose (UA) Negative (Negative) Urine Ketones Negative (Negative) Urine Blood Negative (Negative) Urine Nitrite Negative (Negative) Urine Bilirubin Negative (Negative) Urine Urobilinogen <2.0 (<2.0) mg/dL Ur Leukocyte Esterase Negative (Negative) 03/23/20 03/23/20 Range/Units 07:53 07:53 WBC (3.8-10.6) k/uL RBC (3.80-5.40) m/uL Hgb (11.4-16.0) gm/dL Hct (34.0-46.0) % MCV (80.0-100.0) fL MCH (25.0-35.0) pg MCHC (31.0-37.0) g/dL RDW (11.5-15.5) % Plt Count (150-450) k/uL Neutrophils % % Lymphocytes % % Monocytes % % Eosinophils % % Basophils % % Neutrophils # (1.3-7.7) k/uL Lymphocytes # (1.0-4.8) k/uL Monocytes # (0-1.0) k/uL Eosinophils # (0-0.7) k/uL Basophils # (0-0.2) k/uL PT (9.0-12.0) sec INR (<1.2) APTT (22.0-30.0) sec Sodium 131 L (137-145) mmol/L Potassium 3.8 (3.5-5.1) mmol/L Chloride 95 L (98-107) mmol/L Carbon Dioxide 23 (22-30) mmol/L Anion Gap 13 mmol/L BUN 10 (7-17) mg/dL Creatinine 0.62 (0.52-1.04) mg/dL Est GFR (CKD-EPI)AfAm >90 (>60 ml/min/1.73 sqM) Est GFR (CKD-EPI)NonAf >90 (>60 ml/min/1.73 sqM) Glucose 184 H (74-99) mg/dL Plasma Lactic Acid [place] 2.2 H* (0.7-2.0) mmol/L Calcium 10.1 (8.4-10.2) mg/dL Total Bilirubin 0.7 (0.2-1.3) mg/dL AST 26 (14-36) U/L ALT 21 (4-34) U/L Alkaline Phosphatase 87 (38-126) U/L Total Protein 7.6 (6.3-8.2) g/dL Albumin 4.5 (3.5-5.0) g/dL Amylase 51 (30-110) U/L Lipase 77 (23-300) U/L Urine Color Urine Appearance (Clear) Urine pH (5.0-8.0) Ur Specific [place] (1.001-1.035) Urine Protein (Negative) Urine Glucose (UA) (Negative) Urine Ketones (Negative) Urine Blood (Negative) Urine Nitrite (Negative) Urine Bilirubin (Negative) Urine Urobilinogen (<2.0) mg/dL Ur Leukocyte Esterase (Negative) - Radiology Data Radiology results: report reviewed CT abdomen and pelvis with contrast is acute diverticulitis of the distal sigmoid colon. No abscess formation or free air is identified at this time. Moderate fatty liver. Small moderate-sized title hernia. Disposition Clinical Impression: Diverticulitis Disposition: HOME SELF-CARE Condition: Good Instructions (If sedation given, give patient instructions): Diverticulitis (ED) Additional Instructions: Please use medication as discussed. Please follow up with family doctor if symptoms have not improved over the next two days. Please return to the [facility] room if your symptoms increase or worsen or for any other concerns. Prescriptions: Ciprofloxacin HCl [Cipro] 500 mg PO BID 10 Days #20 tab bisacodyL [Dulcolax] 10 mg PO ONCE #12 tablet. metroNIDAZOLE [Flagyl] 500 mg PO TID #30 tab Is patient prescribed a controlled substance at d/c from ED?: No Referrals: Cyrus Peck DO [Primary Care Provider] - 1-2 days Time of Disposition: 09:43
[2020-03-23 08:04] LABS: Appearance,Urine Clear (Clear); Bilirubin,Urine Negative (Negative); Blood,Urine Negative (Negative); Color,Urine Light Yellow; Glucose,Urine (UA) Negative (Negative); Ketones,Urine Negative (Negative); Leukocyte Esterase,Urine Negative (Negative); Nitrite,Urine Negative (Negative); PH, Urine 6.5 (5.0-8.0); Protein,Urine Negative (Negative); Specific Gravity,Urine 1.007 (1.001-1.035); Urobilinogen,Urine <2.0 mg/dL (<2.0)
[2020-03-23 08:10] LABS: INR 0.9 (<1.2); Partial Thromboplastin Time 26.4 sec (22.0-30.0); Prothrombin Time 9.5 sec (9.0-12.0)
[2020-03-23 08:20] LABS: ALT 21 U/L (4-34); AST 26 U/L (14-36); African American GFR (CKD) >90 (>60 ml/min/1.73 sqM); Albumin 4.5 g/dL (3.5-5.0); Alkaline Phosphatase 87 U/L (38-126); Amylase 51 U/L (30-110); Anion Gap 13 mmol/L; Blood Urea Nitrogen 10 mg/dL (7-17); Calcium 10.1 mg/dL (8.4-10.2); Carbon Dioxide 23 mmol/L (22-30); Chloride 95 mmol/L (98-107); Glucose 184 mg/dL (74-99); Non-African American GFR(CKD) >90 (>60 ml/min/1.73 sqM); Potassium 3.8 mmol/L (3.5-5.1); Sodium 131 mmol/L (137-145); Total Bilirubin 0.7 mg/dL (0.2-1.3); Total Protein 7.6 g/dL (6.3-8.2)
[2020-03-23 08:24] LABS: Basophils % (A) 0 %; Eosinophils # (A) 0.1 k/uL (0-0.7); Eosinophils % (A) 1 %; HCT 40.2 % (34.0-46.0); HGB 13.8 gm/dL (11.4-16.0); Lymphocytes # (A) 1.8 k/uL (1.0-4.8); Lymphocytes % (A) 15 %; MCH 28.6 pg (25.0-35.0); MCHC 34.4 g/dL (31.0-37.0); MCV 83.3 fL (80.0-100.0); Mean Platelet Volume 6.7; Monocytes # (A) 0.6 k/uL (0-1.0); Monocytes % (A) 5 %; Neutrophils # (A) 9.4 k/uL (1.3-7.7); Neutrophils % (A) 78 %; Platelet Count 335 k/uL (150-450); RBC 4.83 m/uL (3.80-5.40); WBC 12.1 k/uL (3.8-10.6)
--- NOTE | 2020-03-23 09:27 | CT ---
EXAMINATION TYPE: CT abdomen pelvis w con DATE OF EXAM: 03/23/2020 COMPARISON: 11/12/2019 INDICATION: Left lower quadrant pain, possible diverticulitis, possible abscess. DLP: 1334.8 mGycm, Automated exposure control for dose reduction was used. CONTRAST: 100 mL of Isovue 300. Study performed without Oral Contrast TECHNIQUE: Axial images were obtained from above the diaphragm to the pubic rami in the axial plane a t 5 mm thick sections. Reconstructed images are reviewed on the computer in the coronal plane. FINDINGS: Limited CT sections are obtained the lung bases. The lung bases are clear. Small to moderate sized hiatal hernia is present. CT ABDOMEN: Liver: There is moderate fatty infiltration liver. No discrete masses or cysts are evident. Spleen: Normal Pancreas: Normal Adrenal glands: The adrenal glands are normal. Gallbladder: Normal Kidneys: No masses are evident. No hydronephrosis is present. No cysts are present. Delayed images were obtained through the kidneys, which remain unremarkable. Aorta: Normal Inferior vena cava: Normal. CT PELVIS: Diverticular changes are through the sigmoid colon. There is adjacent inflammatory changes of the dis eleni sigmoid colon. No suspicious abscess formation is identified. Free air is not identified. The reagan dy is without oral contrast limiting bowel evaluation. Appendix: Normal as visualized. Urinary bladder: Normal. Genitourinary structures: Uterus is unremarkable. Adnexal regions are clear. No free fluid is within the pelvis. Osseous structures: No suspicious lytic or sclerotic lesions. IMPRESSIONS: 1. Acute diverticulitis distal sigmoid colon. No abscess formation or free air is identified at this time. 2. Moderate fatty infiltration liver. 3. Small to moderate sized hiatal hernia.
[2020-03-23] MEDS ORDERED: CIPROFLOXACIN HCL 500 MG TAB PO STA (09:37)
[2020-03-23] MEDS ORDERED: metroNIDAZOLE 500 MG TAB PO STA (09:37)
[2020-03-23 09:55] VITALS: BP 140/80; PULSE 85; RESP 14
== END 2020-03-23 09:50 | disposition home or self-care (01) ==
LOC: EC 07:31
DX: K57.32 Diverticulitis of large intestine without perforation or abscess without bleeding (principal); E11.9 Type 2 diabetes mellitus without complications; E78.5 Hyperlipidemia, unspecified; I10 Essential (primary) hypertension; K21.9 Gastro-esophageal reflux disease without esophagitis; Z79.84 Long term (current) use of oral hypoglycemic drugs; Z79.899 Other long term (current) drug therapy; Z87.891 Personal history of nicotine dependence; Z88.0 Allergy status to penicillin; Z88.1 Allergy status to other antibiotic agents; Z88.6 Allergy status to analgesic agent
CPT/HCPCS: 36415; 80053; 82150; 83605; 83690; 85025; 85610; 85730; 81003; 74177; 99284; 96374; 96375; 96361; J2405; J1885; Q9967

== ENCOUNTER 2020-11-01 17:18 | Emergency (ER) | payer BC ==
[2020-11-01 17:25] VITALS: RESP 18; TEMP 98.3
[2020-11-01] MEDS ORDERED: KETOROLAC 15 MG/ML 1 ML VIAL IVP STA (17:44)
[2020-11-01] MEDS ORDERED: SODIUM CHLORIDE 0.9% 500 ML 500 ML IV STA (17:44)
[2020-11-01 18:07] LABS: Basophils % (A) 0 %; Eosinophils # (A) 0.1 k/uL (0-0.7); Eosinophils % (A) 1 %; HCT 42.3 % (34.0-46.0); HGB 14.9 gm/dL (11.4-16.0); Lymphocytes # (A) 2.6 k/uL (1.0-4.8); Lymphocytes % (A) 26 %; MCH 29.7 pg (25.0-35.0); MCHC 35.2 g/dL (31.0-37.0); MCV 84.2 fL (80.0-100.0); Mean Platelet Volume 6.6; Monocytes # (A) 0.5 k/uL (0-1.0); Monocytes % (A) 5 %; Neutrophils # (A) 6.8 k/uL (1.3-7.7); Neutrophils % (A) 67 %; Platelet Count 312 k/uL (150-450); RBC 5.02 m/uL (3.80-5.40); RDW 13.1 % (11.5-15.5); WBC 10.1 k/uL (3.8-10.6)
[2020-11-01 18:21] LABS: Appearance,Urine Clear (Clear); Bilirubin,Urine Negative (Negative); Blood,Urine Negative (Negative); Color,Urine Colorless; Glucose,Urine (UA) Negative (Negative); Ketones,Urine Negative (Negative); Leukocyte Esterase,Urine Moderate (Negative); Mucus,Urine Rare /hpf; Nitrite,Urine Negative (Negative); Protein,Urine Negative (Negative); RBC,Urine 1 /hpf (0-5); Specific Gravity,Urine 1.003 (1.001-1.035); Squamous Epithelial Cell,Urine 1 /hpf (0-4); Urobilinogen,Urine <2.0 mg/dL (<2.0); WBC,Urine 14 /hpf (0-5)
[2020-11-01 18:23] LABS: ALT 33 U/L (4-34); AST 54 U/L (14-36); African American GFR (CKD) >90 (>60 ml/min/1.73 sqM); Albumin 5.2 g/dL (3.5-5.0); Alkaline Phosphatase 71 U/L (38-126); Anion Gap 13 mmol/L; Blood Urea Nitrogen 16 mg/dL (7-17); Calcium 10.7 mg/dL (8.4-10.2); Carbon Dioxide 22 mmol/L (22-30); Chloride 101 mmol/L (98-107); Glucose 103 mg/dL (74-99); Lipase 153 U/L (23-300); Non-African American GFR(CKD) 81 (>60 ml/min/1.73 sqM); Sodium 136 mmol/L (137-145); Total Bilirubin 1.1 mg/dL (0.2-1.3); Total Protein 8.9 g/dL (6.3-8.2)
[2020-11-01 18:24] LABS: Potassium 5.1 mmol/L (3.5-5.1)
[2020-11-01 18:59] VITALS: BP 124/88; PULSE 81
--- NOTE | 2020-11-01 19:19 | CT ---
EXAMINATION TYPE: CT abdomen pelvis w con DATE OF EXAM: 11/01/2020 COMPARISON: 03/23/2020 HISTORY: LLQ pain, hx of diverticulitis CT DLP: 1285.9 mGycm Automated exposure control for dose reduction was used. CONTRAST: Performed with IV Contrast, patient injected with 100 mL of Isovue 300. Images obtained from the diaphragm to the floor the pelvis with IV contrast. Lung bases are clear. There is no pleural effusion. Heart size is normal. There is no pericardial eff usion. There is hiatal hernia. Liver and spleen are intact. The bile ducts are not dilated. Gallbladder appears normal. There is no pancreatic mass. There is no adrenal mass. Kidneys show satisfactory contrast opacification. There is no hydronephrosi s. Delayed images show normal renal excretion. There is no retroperitoneal adenopathy. Ureters are not dilated. The bladder distends smoothly. There is no inguinal hernia. There is no free fluid in the pelvis. Uterus is anteverted. There is no evide nce of a pelvic mass. There are multiple sigmoid diverticula. I see no sign of diverticulitis. The ap pendix is posterior and appears normal. There is no mesenteric edema. There is no ascites or free air. There is no bowel obstruction. Lumbar vertebra have normal alignment. There is no compression fracture. The bony pelvis is intact. H ip joints are intact. IMPRESSION: There is moderate sigmoid diverticulosis without sign of diverticulitis. There is clearing of the inf lammatory changes in the sigmoid colon compared to old exam.
--- NOTE | 2020-11-01 19:35 | ED ---
Abdominal Pain HPI - General Chief Complaint: Abdominal Pain Stated Complaint: possible diverticulitis Time Seen by Provider: 11/01/20 17:29 Source: patient Mode of arrival: ambulatory Limitations: no limitations - History of Present Illness Initial Comments: Patient is a 60-year-old female presenting to the emergency Department with complaints of left lower quadrant pain that been increasing over the past few days. She does have history of diverticulitis and feels like this could be another flareup. She denies any nausea or vomiting but states her appetite has been low. She denies any fever or chills. She denies any chest pain or shortness of breath. She denies history of abdominal surgeries. She has no further complaints at this time. Upon arrival to the ER, her vitals are stable. - Related Data Home Medications Medication Instructions Recorded Confirmed amLODIPine [Norvasc] 5 mg PO DAILY 01/30/16 03/23/20 Vitamin C/Biotin [Hair, Skin and 1 tab PO DAILY 05/12/19 03/23/20 Nails] Acetaminophen Tab [Tylenol] 650 mg PO Q4H PRN 03/23/20 03/23/20 Cinnamon Bark [Cinnamon] 500 mg PO DAILY 03/23/20 03/23/20 Dicyclomine [Bentyl] 10 mg PO Q6H PRN 03/23/20 03/23/20 Famotidine [Pepcid] 20 mg PO HS 03/23/20 03/23/20 Fluticasone Nasal [place] [Flonase 1 spr EA NOSTRIL DAILY PRN 03/23/20 03/23/20 Nasal [place]] Magnesium 200 mg PO DAILY 03/23/20 03/23/20 Potassium Chloride ER [K-Dur 10] 20 meq PO DAILY 03/23/20 03/23/20 Rosuvastatin Calcium [Crestor] 5 mg PO HS 03/23/20 03/23/20 Vitamin A 8,000 unit PO DAILY 03/23/20 03/23/20 Vitamin B Complex 1 cap PO DAILY 03/23/20 03/23/20 metFORMIN HCL [Glucophage] 500 mg PO BID 03/23/20 03/23/20 Previous Rx's Medication Instructions Recorded Chlorthalidone 25 mg PO DAILY #30 tab 05/13/19 Nitroglycerin Sl Tabs [Nitrostat] 0.4 mg SUBLINGUAL Q5M PRN #25 tab 05/13/19 Ciprofloxacin HCl [Cipro] 500 mg PO BID 10 Days #20 tab 03/23/20 bisacodyL [Dulcolax] 10 mg PO ONCE #12 tablet. 03/23/20 metroNIDAZOLE [Flagyl] 500 mg PO TID #30 tab 03/23/20 Amoxic-Pot Clav 875-125Mg 1 tab PO Q12HR 7 Days #14 tab 11/01/20 [Augmentin 875-125] Allergies Allergy/AdvReac Type Severity Reaction Status Date / Time ibuprofen Allergy Unknown Verified 11/01/20 17:25 amoxicillin AdvReac Vomiting Verified 11/01/20 17:25 ciprofloxacin [From Cipro] AdvReac Unknown Verified 11/01/20 17:25 ciprofloxacin HCl AdvReac Unknown Verified 11/01/20 17:25 [From Cipro] Review of Systems ROS Statement: Those systems with pertinent positive or pertinent negative responses have been documented in the HPI. ROS Other: All systems not noted in ROS Statement are negative. Past Medical History Past Medical History: Diabetes Mellitus, GERD/Reflux, Hyperlipidemia, Hypertension Additional Past Medical History / Comment(s): diverticulosis, History of Any Multi-Drug Resistant Organisms: None Reported Past Surgical History: Hernia Repair Additional Past Surgical History / Comment(s): LEFT OVARY REMOVAL, Additional Past Anesthesia/Blood Transfusion Reaction / Comment(s): need alot of anesthesia, no blood transfusion Past Psychological History: No Psychological Hx Reported Smoking Status: Former smoker Past Alcohol Use History: Occasional Past Drug Use History: None Reported - Past Family History Mother Family Medical History: Cancer, CVA/TIA, Hyperlipidemia, Hypertension, Myocardial Infarction ([place]) Additional Family Medical History / Comment(s): lung cancer Father History Unknown: Yes Family Medical History: Cancer, Mitral Valve Prolapse (MVP) General Exam - General Exam Comments Initial Comments: GENERAL: Patient is well-developed and well-nourished. Patient is nontoxic and in no acute distress. HEAD: Atraumatic, normocephalic. EYES: Pupils equal round and reactive to light, extraocular movements intact, sclera anicteric, conjunctiva are normal. Eyelids were unremarkable. ENT: TMs normal, nares patent, oropharynx clear without exudates. Moist mucous membranes. NECK: Normal range of motion, supple without lymphadenopathy or JVD. LUNGS: Unlabored respirations. Breath sounds clear to auscultation bilaterally and equal. No wheezes rales or rhonchi. HEART: Regular rate and rhythm without murmurs, rubs or gallops. ABDOMEN: Soft, left lower quadrant tenderness, normoactive bowel sounds. No guarding, no rebound. No masses appreciated. : Deferred MUSCULOSKELETAL: Normal extremities with adequate strength and normal range of motion, no pitting or edema. No clubbing or cyanosis. NEUROLOGICAL: Patient is alert and oriented x 3. Motor and sensory are also intact. Cranial nerves II through XII grossly intact. Symmetrical smile. Normal speech, normal gait. PSYCH: Normal mood, normal affect. SKIN: Warm, Dry, normal turgor, no rashes or lesions noted. Limitations: no limitations Course Vital Signs 11/01/20 11/01/20 17:23 18:58 Temperature 98.3 F Pulse Rate 83 81 Respiratory 18 18 Rate Blood Pressure 147/96 124/88 O2 Sat by Pulse 98 100 Oximetry Medical Decision Making - Medical Decision Making Patient is a 60-year-old female here with left lower quadrant pain increasing over the past few days. She does have a history of diverticulitis. Her vitals are stable, no nausea or vomiting. Labs are stable, normal white count, normal lactate. Her urine shows no evidence of infection. CT of the abdomen shows moderate sigmoid diverticulosis without signs of diverticulitis. There is clearing of inflammatory changes compared to her old exam. Patient was given fluids and Toradol and of report and improvement in her symptoms. I discussed with patient that her symptoms could be viral in nature. If symptoms persist and pain worsens, I will give her a prescription for Augmentin that she can start. She is in agreement with this plan of care. She is stable for discharge. Return parameters were discussed with the patient she verbalized understanding. Case discussed with Dr. Julio. - Lab Data Result diagrams: 11/01/20 17:44 11/01/20 17:44 Lab Results 11/01/20 11/01/20 11/01/20 Range/Units 17:44 17:44 17:44 WBC 10.1 (3.8-10.6) k/uL RBC 5.02 (3.80-5.40) m/uL Hgb 14.9 (11.4-16.0) gm/dL Hct 42.3 (34.0-46.0) % MCV 84.2 (80.0-100.0) fL MCH 29.7 (25.0-35.0) pg MCHC 35.2 (31.0-37.0) g/dL RDW 13.1 (11.5-15.5) % Plt Count 312 (150-450) k/uL MPV 6.6 Neutrophils % 67 % Lymphocytes % 26 % Monocytes % 5 % Eosinophils % 1 % Basophils % 0 % Neutrophils # 6.8 (1.3-7.7) k/uL Lymphocytes # 2.6 (1.0-4.8) k/uL Monocytes # 0.5 (0-1.0) k/uL Eosinophils # 0.1 (0-0.7) k/uL Basophils # 0.0 (0-0.2) k/uL Sodium 136 L (137-145) mmol/L Potassium 5.1 (3.5-5.1) mmol/L Chloride 101 (98-107) mmol/L Carbon Dioxide 22 (22-30) mmol/L Anion Gap 13 mmol/L BUN 16 (7-17) mg/dL Creatinine 0.80 (0.52-1.04) mg/dL Est GFR (CKD-EPI)AfAm >90 (>60 ml/min/1.73 sqM) Est GFR (CKD-EPI)NonAf 81 (>60 ml/min/1.73 sqM) Glucose 103 H (74-99) mg/dL Plasma Lactic Acid [place] 1.4 (0.7-2.0) mmol/L Calcium 10.7 H (8.4-10.2) mg/dL Total Bilirubin 1.1 (0.2-1.3) mg/dL AST 54 H (14-36) U/L ALT 33 (4-34) U/L Alkaline Phosphatase 71 (38-126) U/L Total Protein 8.9 H (6.3-8.2) g/dL Albumin 5.2 H (3.5-5.0) g/dL Lipase 153 (23-300) U/L Urine Color Urine Appearance (Clear) Urine pH (5.0-8.0) Ur Specific [place] (1.001-1.035) Urine Protein (Negative) Urine Glucose (UA) (Negative) Urine Ketones (Negative) Urine Blood (Negative) Urine Nitrite (Negative) Urine Bilirubin (Negative) Urine Urobilinogen (<2.0) mg/dL Ur Leukocyte Esterase (Negative) Urine RBC (0-5) /hpf Urine WBC (0-5) /hpf Ur Squamous Epith Cells (0-4) /hpf Urine Mucus (None) /hpf 11/01/20 Range/Units 17:55 WBC (3.8-10.6) k/uL RBC (3.80-5.40) m/uL Hgb (11.4-16.0) gm/dL Hct (34.0-46.0) % MCV (80.0-100.0) fL MCH (25.0-35.0) pg MCHC (31.0-37.0) g/dL RDW (11.5-15.5) % Plt Count (150-450) k/uL MPV Neutrophils % % Lymphocytes % % Monocytes % % Eosinophils % % Basophils % % Neutrophils # (1.3-7.7) k/uL Lymphocytes # (1.0-4.8) k/uL Monocytes # (0-1.0) k/uL Eosinophils # (0-0.7) k/uL Basophils # (0-0.2) k/uL Sodium (137-145) mmol/L Potassium (3.5-5.1) mmol/L Chloride (98-107) mmol/L Carbon Dioxide (22-30) mmol/L Anion Gap mmol/L BUN (7-17) mg/dL Creatinine (0.52-1.04) mg/dL Est GFR (CKD-EPI)AfAm (>60 ml/min/1.73 sqM) Est GFR (CKD-EPI)NonAf (>60 ml/min/1.73 sqM) Glucose (74-99) mg/dL Plasma Lactic Acid [place]ett (0.7-2.0) mmol/L Calcium (8.4-10.2) mg/dL Total Bilirubin (0.2-1.3) mg/dL AST (14-36) U/L ALT (4-34) U/L Alkaline Phosphatase (38-126) U/L Total Protein (6.3-8.2) g/dL Albumin (3.5-5.0) g/dL Lipase (23-300) U/L Urine Color Colorless Urine Appearance Clear (Clear) Urine pH 6.0 (5.0-8.0) Ur Specific [place] 1.003 (1.001-1.035) Urine Protein Negative (Negative) Urine Glucose (UA) Negative (Negative) Urine Ketones Negative (Negative) Urine Blood Negative (Negative) Urine Nitrite Negative (Negative) Urine Bilirubin Negative (Negative) Urine Urobilinogen <2.0 (<2.0) mg/dL Ur Leukocyte Esterase Moderate H (Negative) Urine RBC 1 (0-5) /hpf Urine WBC 14 H (0-5) /hpf Ur Squamous Epith Cells 1 (0-4) /hpf Urine Mucus Rare H (None) /hpf Disposition Clinical Impression: Abdominal pain Disposition: HOME SELF-CARE Condition: Stable Instructions (If sedation given, give patient instructions): Abdominal Pain (ED) Additional Instructions: Please return to the Emergency Department if symptoms worsen or any other concerns. Recommend increasing fluid intake. If symptoms persist, pain worsens, recommended taking Augmentin. Please follow up with your regular physician. Prescriptions: Amoxic-Pot Clav 875-125Mg [Augmentin 875-125] 1 tab PO Q12HR 7 Days #14 tab Is patient prescribed a controlled substance at d/c from ED?: No Referrals: Cyrus Peck DO [Primary Care Provider] - 1-2 days
== END 2020-11-01 19:58 | disposition home or self-care (01) ==
LOC: EC 17:18
DX: R10.32 Left lower quadrant pain (principal); E11.9 Type 2 diabetes mellitus without complications; E78.5 Hyperlipidemia, unspecified; I10 Essential (primary) hypertension; K21.9 Gastro-esophageal reflux disease without esophagitis; Z79.84 Long term (current) use of oral hypoglycemic drugs; Z79.899 Other long term (current) drug therapy; Z87.891 Personal history of nicotine dependence; Z88.0 Allergy status to penicillin
CPT/HCPCS: 36415; 80053; 83605; 83690; 85025; 81001; 87086; 74177; 99284; 96374; J1885; Q9967

== ENCOUNTER 2020-11-10 07:32 | Emergency (ER) | payer BC ==
[2020-11-10 07:40] VITALS: PULSE 78
[2020-11-10] MEDS ORDERED: KETOROLAC 15 MG/ML 1 ML VIAL IM STA (07:56)
--- NOTE | 2020-11-10 08:18 | XR ---
EXAMINATION TYPE: XR cervical spine comp DATE OF EXAM: 11/10/2020 CLINICAL HISTORY: pain COMPARISON: NONE TECHNIQUE: Frontal, lateral, oblique, swimmers, and open mouth view of the cervical spine are obtaine d. FINDINGS: The cervical spine is visualized in its entirety from C1 thru the top of T1 level. It is s atisfactory in alignment without evidence of acute fracture or dislocation. The pre-vertebral soft t issue appears within normal limits. [id number] degenerative disc space narrowing at C4-5 C5-6 a nd C6-7. Ventral and dorsal spondylosis. The C1-C2 articulation is unremarkable on the open mouth vie w. The oblique images demonstrate mild neural foraminal narrowing bilaterally at C5-6 and C6-7. IMPRESSION: Degenerative changes as discussed.
--- NOTE | 2020-11-10 08:49 | ED ---
General Adult HPI - General Chief complaint: Neuro Symptoms/Deficit Stated complaint: Numbness in hands Time Seen by Provider: 11/10/20 07:35 Source: patient, RN notes reviewed, old records reviewed Mode of arrival: ambulatory Limitations: no limitations - History of Present Illness Initial comments: This is a 60-year-old female who presents emergency Department complaining of tingling in her fingertips on her left hand patient states she's had this multiple times in the past typically when she sleeps in a different where one cat sleeps on her. Patient states he Did fall asleep last night on her left shoulder. Patient states the tingling was in the hand earlier but now she is to finger tips. Patient states she can feel everything but has a tingling sensation to it. Patient denies any loss of sensation or loss of strength. Patient denies any other neurological symptoms. Patient states it appears to be slowly improving. - Related Data Home Medications Medication Instructions Recorded Confirmed amLODIPine [Norvasc] 5 mg PO DAILY 01/30/16 03/23/20 Vitamin C/Biotin [Hair, Skin and 1 tab PO DAILY 05/12/19 03/23/20 Nails] Acetaminophen Tab [Tylenol] 650 mg PO Q4H PRN 03/23/20 03/23/20 Cinnamon Bark [Cinnamon] 500 mg PO DAILY 03/23/20 03/23/20 Dicyclomine [Bentyl] 10 mg PO Q6H PRN 03/23/20 03/23/20 Famotidine [Pepcid] 20 mg PO HS 03/23/20 03/23/20 Fluticasone Nasal [place] [Flonase 1 spr EA NOSTRIL DAILY PRN 03/23/20 03/23/20 Nasal [place]] Magnesium 200 mg PO DAILY 03/23/20 03/23/20 Potassium Chloride ER [K-Dur 10] 20 meq PO DAILY 03/23/20 03/23/20 Rosuvastatin Calcium [Crestor] 5 mg PO HS 03/23/20 03/23/20 Vitamin A 8,000 unit PO DAILY 03/23/20 03/23/20 Vitamin B Complex 1 cap PO DAILY 03/23/20 03/23/20 metFORMIN HCL [Glucophage] 500 mg PO BID 03/23/20 03/23/20 Previous Rx's Medication Instructions Recorded Chlorthalidone 25 mg PO DAILY #30 tab 05/13/19 Nitroglycerin Sl Tabs [Nitrostat] 0.4 mg SUBLINGUAL Q5M PRN #25 tab 05/13/19 Ciprofloxacin HCl [Cipro] 500 mg PO BID 10 Days #20 tab 03/23/20 bisacodyL [Dulcolax] 10 mg PO ONCE #12 tablet. 03/23/20 metroNIDAZOLE [Flagyl] 500 mg PO TID #30 tab 03/23/20 Amoxic-Pot Clav 875-125Mg 1 tab PO Q12HR 7 Days #14 tab 11/01/20 [Augmentin 875-125] Ketorolac [Toradol] 10 mg PO Q6HR #15 tab 11/10/20 Allergies Allergy/AdvReac Type Severity Reaction Status Date / Time ibuprofen Allergy Unknown Verified 11/10/20 07:40 amoxicillin AdvReac Vomiting Verified 11/10/20 07:40 ciprofloxacin [From Cipro] AdvReac Unknown Verified 11/10/20 07:40 ciprofloxacin HCl AdvReac Unknown Verified 11/10/20 07:40 [From Cipro] Review of Systems ROS Statement: Those systems with pertinent positive or pertinent negative responses have been documented in the HPI. ROS Other: All systems not noted in ROS Statement are negative. Past Medical History Past Medical History: Diabetes Mellitus, GERD/Reflux, Hyperlipidemia, Hype rtension Additional Past Medical History / Comment(s): diverticulosis, History of Any Multi-Drug Resistant Organisms: None Reported Past Surgical History: Hernia Repair Additional Past Surgical History / Comment(s): LEFT OVARY REMOVAL, Additional Past Anesthesia/Blood Transfusion Reaction / Comment(s): need alot of anesthesia, no blood transfusion Past Psychological History: No Psychological Hx Reported Smoking Status: Former smoker Past Alcohol Use History: Occasional Past Drug Use History: None Reported - Past Family History Mother Family Medical History: Cancer, CVA/TIA, Hyperlipidemia, Hypertension, Myocardial Infarction ([place]) Additional Family Medical History / Comment(s): lung cancer Father History Unknown: Yes Family Medical History: Cancer, Mitral Valve Prolapse (MVP) General Exam - General Exam Comments Initial Comments: GENERAL: Patient is well-developed and well-nourished. Patient is nontoxic and well- hydrated and is in no acute distress. ENT: Neck is soft and supple. No significant lymphadenopathy is noted. Neck has full range of motion without eliciting any pain. EYES: The sclera were anicteric and conjunctiva were pink and moist. Extraocular movements were intact and pupils were equal round and reactive to light. Eyelids were unremarkable. SKIN: Skin is clear with no lesions or rashes and otherwise unremarkable. NEUROLOGIC: Patient is alert and oriented x3. Cranial nerves II through XII are grossly intact. Motor and sensory are also intact. MUSCULOSKELETAL: Normal extremities with adequate strength and full range of motion. LYMPHATICS: No significant lymphadenopathy is noted PSYCHIATRIC: Normal psychiatric evaluation. Limitations: no limitations Course Vital Signs 11/10/20 07:38 Temperature 97.7 F Pulse Rate 78 Respiratory 18 Rate Blood Pressure 139/89 O2 Sat by Pulse 97 Oximetry Medical Decision Making - Medical Decision Making C-spine x-rays show some narrowing of the neural foramen on the left and right at C5-C6 and C6-C7. Patient received Toradol shot emergency department and felt this so that helped initially is tingling at the very tip of her index finger at this point. Disposition Clinical Impression: Paresthesia, Cervical radiculopathy Disposition: HOME SELF-CARE Condition: Good Prescriptions: Ketorolac [Toradol] 10 mg PO Q6HR #15 tab Is patient prescribed a controlled substance at d/c from ED?: No Referrals: Cyrus Peck DO [Primary Care Provider] - 1-2 days Time of Disposition: 08:48
[2020-11-10 09:10] VITALS: BP 148/78; RESP 16; TEMP 98
== END 2020-11-10 08:55 | disposition home or self-care (01) ==
LOC: EC 07:32
DX: M54.12 Radiculopathy, cervical region (principal); E11.9 Type 2 diabetes mellitus without complications; K21.9 Gastro-esophageal reflux disease without esophagitis; E78.5 Hyperlipidemia, unspecified; I10 Essential (primary) hypertension; Z79.84 Long term (current) use of oral hypoglycemic drugs; Z79.899 Other long term (current) drug therapy; Z88.0 Allergy status to penicillin; Z88.1 Allergy status to other antibiotic agents; Z88.6 Allergy status to analgesic agent; Z87.891 Personal history of nicotine dependence
CPT/HCPCS: 72050; 99284; 96372; J1885

== ENCOUNTER 2020-12-01 11:32 | Emergency (ER) | payer BC ==
[2020-12-01 11:45] VITALS: TEMP 97.6
[2020-12-01 12:33] LABS: Appearance,Urine Clear (Clear); Bilirubin,Urine Negative (Negative); Blood,Urine Negative (Negative); Color,Urine Light Yellow; Glucose,Urine (UA) Negative (Negative); Ketones,Urine Negative (Negative); Leukocyte Esterase,Urine Negative (Negative); Nitrite,Urine Negative (Negative); PH, Urine 6.5 (5.0-8.0); Protein,Urine Negative (Negative); Urobilinogen,Urine <2.0 mg/dL (<2.0)
[2020-12-01 12:48] LABS: Albumin 4.7 g/dL (3.5-5.0); Calcium 10.8 mg/dL (8.4-10.2); Potassium 4.1 mmol/L (3.5-5.1); Total Bilirubin 0.7 mg/dL (0.2-1.3); Total Protein 7.8 g/dL (6.3-8.2)
[2020-12-01 13:01] LABS: Basophils % (A) 0 %; Eosinophils # (A) 0.1 k/uL (0-0.7); Eosinophils % (A) 1 %; HCT 42.9 % (34.0-46.0); HGB 14.9 gm/dL (11.4-16.0); Lymphocytes # (A) 2.3 k/uL (1.0-4.8); Lymphocytes % (A) 26 %; MCHC 34.7 g/dL (31.0-37.0); MCV 83.6 fL (80.0-100.0); Mean Platelet Volume 6.7; Monocytes # (A) 0.3 k/uL (0-1.0); Monocytes % (A) 4 %; Neutrophils # (A) 6.1 k/uL (1.3-7.7); Neutrophils % (A) 68 %; Platelet Count 263 k/uL (150-450); RBC 5.13 m/uL (3.80-5.40); RDW 13.7 % (11.5-15.5); WBC 8.9 k/uL (3.8-10.6)
--- NOTE | 2020-12-01 13:58 | CT ---
EXAMINATION TYPE: CT abdomen pelvis w con DATE OF EXAM: 12/01/2020 HISTORY: Bilateral flank pain, history of diverticulitis CT DLP: 1328.5mGycm Automated Exposure Control for Dose Reduction was Utilized. CONTRAST: CT scan of the abdomen and pelvis is performed without oral but with IV Contrast, patient injected wi th 100 mL of Isovue 300. COMPARISON: CT abdomen and pelvis November 01, 2020 and older studies FINDINGS: LUNG BASES: No significant abnormality is appreciated. LIVER/GB: Liver diffusely low dense consistent with diffuse fatty infiltration. PANCREAS: No significant abnormality is seen. SPLEEN: No significant abnormality is seen. ADRENALS: No significant abnormality is seen. KIDNEYS: Symmetric cortical medullary uptake and excretion without concerning renal mass or hydroneph rosis seen bilaterally. BOWEL: Small to moderate size hiatal hernia redemonstrated. Suboptimal evaluation of bowel without en teric contrast. Scattered colonic diverticulosis with prominent diverticula in the left and sigmoid c olon. Mild fat stranding about pelvis axial image 74 for reference could reflect mild or early acute diverticulitis. No free air. No well-formed fluid collection or abscess noted. UTERUS/ADNEXA: Anteverted uterus. LYMPH NODES: No greater than 1cm abdominal or pelvic lymph nodes are appreciated. OSSEOUS STRUCTURES: No significant abnormality is seen. OTHER: No significant additional abnormality is seen. IMPRESSION: Possible mild or early recurrent uncomplicated acute diverticulitis left pelvis involving proximal to mid sigmoid colon. Correlate clinically.
--- NOTE | 2020-12-01 14:19 | ED ---
Abdominal Pain HPI - General Chief Complaint: Abdominal Pain Stated Complaint: abd & flank pain Time Seen by Provider: 12/01/20 11:49 Source: patient Mode of arrival: ambulatory Limitations: no limitations - Related Data Home Medications Medication Instructions Recorded Confirmed amLODIPine [Norvasc] 7.5 mg PO HS 01/30/16 12/01/20 Vitamin C/Biotin [Hair, Skin and 1 tab PO DAILY 05/12/19 12/01/20 Nails] Acetaminophen Tab [Tylenol] 650 mg PO Q4H PRN 03/23/20 12/01/20 Cinnamon Bark [Cinnamon] 500 mg PO DAILY 03/23/20 12/01/20 Famotidine [Pepcid] 20 mg PO HS 03/23/20 12/01/20 Magnesium 200 mg PO DAILY 03/23/20 12/01/20 Rosuvastatin Calcium [Crestor] 5 mg PO HS 03/23/20 12/01/20 Vitamin B Complex 1 cap PO DAILY 03/23/20 12/01/20 metFORMIN HCL [Glucophage] 500 mg PO W/SUPPER 03/23/20 12/01/20 Cholecalciferol [Vitamin D3 (25 25 mcg PO DAILY 12/01/20 12/01/20 Mcg = 1000 Iu)] Turmeric Root Extract [Turmeric] 500 mg PO DAILY 12/01/20 12/01/20 Vitamin E 1,000 unit PO DAILY 12/01/20 12/01/20 Previous Rx's Medication Instructions Recorded Nitroglycerin Sl Tabs [Nitrostat] 0.4 mg SUBLINGUAL Q5M PRN #25 tab 05/13/19 Amoxic-Pot Clav 875-125Mg 1 tab PO Q12HR 7 Days #14 tab 11/01/20 [Augmentin 875-125] Amoxic-Pot Clav 875-125Mg 1 tab PO Q12HR 7 Days #14 tab 12/01/20 [Augmentin 875-125] metroNIDAZOLE [Flagyl] 500 mg PO TID 7 Days #21 tab 12/01/20 Allergies Allergy/AdvReac Type Severity Reaction Status Date / Time ibuprofen Allergy Unknown Verified 12/01/20 12:46 amoxicillin AdvReac Vomiting Verified 12/01/20 12:46 ciprofloxacin [From Cipro] AdvReac Unknown Verified 12/01/20 12:46 ciprofloxacin HCl AdvReac Unknown Verified 12/01/20 12:46 [From Cipro] Review of Systems ROS Statement: Those systems with pertinent positive or pertinent negative responses have been documented in the HPI. ROS Other: All systems not noted in ROS Statement are negative. Past Medical History Past Medical History: Diabetes Mellitus, GERD/Reflux, Hyperlipidemia, Hypertension Additional Past Medical History / Comment(s): diverticulosis, History of Any Multi-Drug Resistant Organisms: None Reported Past Surgical History: Hernia Repair Additional Past Surgical History / Comment(s): LEFT OVARY REMOVAL, Additional Past Anesthesia/Blood Transfusion Reaction / Comment(s): need alot of anesthesia, no blood transfusion Past Psychological History: No Psychological Hx Reported Smoking Status: Former smoker Past Alcohol Use History: Occasional Past Drug Use History: None Reported - Past Family History Mother Family Medical History: Cancer, CVA/TIA, Hyperlipidemia, Hypertension, Myocardial Infarction ([place]) Additional Family Medical History / Comment(s): lung cancer Father History Unknown: Yes Family Medical History: Cancer, Mitral Valve Prolapse (MVP) General Exam Limitations: no limitations Course Vital Signs 12/01/20 11:41 Temperature 97.6 F Pulse Rate 99 Respiratory 20 Rate Blood Pressure 145/85 O2 Sat by Pulse 97 Oximetry Medical Decision Making - Lab Data Result diagrams: 12/01/20 12:17 12/01/20 12:17 Lab Results 12/01/20 12/01/20 12/01/20 Range/Units 12:17 12:17 12:17 WBC 8.9 (3.8-10.6) k/uL RBC 5.13 (3.80-5.40) m/uL Hgb 14.9 (11.4-16.0) gm/dL Hct 42.9 (34.0-46.0) % MCV 83.6 (80.0-100.0) fL MCH 29.0 (25.0-35.0) pg MCHC 34.7 (31.0-37.0) g/dL RDW 13.7 (11.5-15.5) % Plt Count 263 (150-450) k/uL MPV 6.7 Neutrophils % 68 % Lymphocytes % 26 % Monocytes % 4 % Eosinophils % 1 % Basophils % 0 % Neutrophils # 6.1 (1.3-7.7) k/uL Lymphocytes # 2.3 (1.0-4.8) k/uL Monocytes # 0.3 (0-1.0) k/uL Eosinophils # 0.1 (0-0.7) k/uL Basophils # 0.0 (0-0.2) k/uL Sodium 132 L (137-145) mmol/L Potassium 4.1 (3.5-5.1) mmol/L Chloride 98 (98-107) mmol/L Carbon Dioxide 20 L (22-30) mmol/L Anion Gap 14 mmol/L BUN 9 (7-17) mg/dL Creatinine 0.84 (0.52-1.04) mg/dL Est GFR (CKD-EPI)AfAm 88 (>60 ml/min/1.73 sqM) Est GFR (CKD-EPI)NonAf 76 (>60 ml/min/1.73 sqM) Glucose 128 H (74-99) mg/dL Plasma Lactic Acid [place] (0.7-2.0) mmol/L Calcium 10.8 H (8.4-10.2) mg/dL Total Bilirubin 0.7 (0.2-1.3) mg/dL AST 46 H (14-36) U/L ALT 42 H (4-34) U/L Alkaline Phosphatase 79 (38-126) U/L Total Protein 7.8 (6.3-8.2) g/dL Albumin 4.7 (3.5-5.0) g/dL Amylase 43 (30-110) U/L Lipase 90 (23-300) U/L Urine Color Light Yellow Urine Appearance Clear (Clear) Urine pH 6.5 (5.0-8.0) Ur Specific [place] 1.000 L (1.001-1.035) Urine Protein Negative (Negative) Urine Glucose (UA) Negative (Negative) Urine Ketones Negative (Negative) Urine Blood Negative (Negative) Urine Nitrite Negative (Negative) Urine Bilirubin Negative (Negative) Urine Urobilinogen <2.0 (<2.0) mg/dL Ur Leukocyte Esterase Negative (Negative) 12/01/20 Range/Units 12:17 WBC (3.8-10.6) k/uL RBC (3.80-5.40) m/uL Hgb (11.4-16.0) gm/dL Hct (34.0-46.0) % MCV (80.0-100.0) fL MCH (25.0-35.0) pg MCHC (31.0-37.0) g/dL RDW (11.5-15.5) % Plt Count (150-450) k/uL MPV Neutrophils % % Lymphocytes % % Monocytes % % Eosinophils % % Basophils % % Neutrophils # (1.3-7.7) k/uL Lymphocytes # (1.0-4.8) k/uL Monocytes # (0-1.0) k/uL Eosinophils # (0-0.7) k/uL Basophils # (0-0.2) k/uL Sodium (137-145) mmol/L Potassium (3.5-5.1) mmol/L Chloride (98-107) mmol/L Carbon Dioxide (22-30) mmol/L Anion Gap mmol/L BUN (7-17) mg/dL Creatinine (0.52-1.04) mg/dL Est GFR (CKD-EPI)AfAm (>60 ml/min/1.73 sqM) Est GFR (CKD-EPI)NonAf (>60 ml/min/1.73 sqM) Glucose (74-99) mg/dL Plasma Lactic Acid [place] 1.1 (0.7-2.0) mmol/L Calcium (8.4-10.2) mg/dL Total Bilirubin (0.2-1.3) mg/dL AST (14-36) U/L ALT (4-34) U/L Alkaline Phosphatase (38-126) U/L Total Protein (6.3-8.2) g/dL Albumin (3.5-5.0) g/dL Amylase (30-110) U/L Lipase (23-300) U/L Urine Color Urine Appearance (Clear) Urine pH (5.0-8.0) Ur Specific [place] (1.001-1.035) Urine Protein (Negative) Urine Glucose (UA) (Negative) Urine Ketones (Negative) Urine Blood (Negative) Urine Nitrite (Negative) Urine Bilirubin (Negative) Urine Urobilinogen (<2.0) mg/dL Ur Leukocyte Esterase (Negative) Disposition Clinical Impression: Diverticulitis Disposition: HOME SELF-CARE Condition: Good Instructions (If sedation given, give patient instructions): Diverticulitis (ED), Diverticulitis Diet (ED) Additional Instructions: Please use medication as discussed. Please follow-up with family doctor in the next 2 days. Dont drink while on flagyll!! . Please return to emergency room if the symptoms increase or worsen or for any other concerns. Prescriptions: Amoxic-Pot Clav 875-125Mg [Augmentin 875-125] 1 tab PO Q12HR 7 Days #14 tab metroNIDAZOLE [Flagyl] 500 mg PO TID 7 Days #21 tab Is patient prescribed a controlled substance at d/c from ED?: No Referrals: Cyrus Peck DO [Primary Care Provider] - 1-2 days Suresh Brady MD [STAFF PHYSICIAN] - 1-2 days Time of Disposition: 14:18
[2020-12-01 15:12] VITALS: BP 125/85; PULSE 77; RESP 18
== END 2020-12-01 15:11 | disposition home or self-care (01) ==
LOC: EC 11:32
DX: K57.32 Diverticulitis of large intestine without perforation or abscess without bleeding (principal); E11.9 Type 2 diabetes mellitus without complications; K21.9 Gastro-esophageal reflux disease without esophagitis; E78.5 Hyperlipidemia, unspecified; I10 Essential (primary) hypertension; Z87.891 Personal history of nicotine dependence
CPT/HCPCS: 36415; 80053; 82150; 83605; 83690; 85025; 81003; 74177; 99284; Q9967

== ENCOUNTER 2021-01-08 11:14 | Emergency (ER) | payer BC ==
[2021-01-08 11:20] VITALS: RESP 18; TEMP 97.6
--- NOTE | 2021-01-08 11:46 | ED ---
Recheck HPI - General Chief Complaint: Recheck/Abnormal Lab/Rx Stated Complaint: BP low left arm sore after donating plasma Time Seen by Provider: 01/08/21 11:24 Source: patient Mode of arrival: ambulatory Limitations: no limitations - History of Present Illness Initial Comments: 60 year-old female patient presents to the emergency department for evaluation of left arm pain and low blood pressure after donating plasma. When she left the plasma center the area started bleeding, she went back in, her BP was low so they called an ambulance. Her BPs stablized and she went home. States that she has been having low blood pressures (112-118 systolic) in her left arm and normal blood pressures (130-140 systolic) in her right. States she is also having an aching pain and what feels like a "lump" in her elbow. States she has also had heart rates up to 110. Denies any dizziness or weakness. Denies any fever or chills. Denies any numbness or tingling to the left hand. Denies left arm swelling. - Related Data Home Medications Medication Instructions Recorded Confirmed amLODIPine [Norvasc] 7.5 mg PO HS 01/30/16 12/01/20 Vitamin C/Biotin [Hair, Skin and 1 tab PO DAILY 05/12/19 12/01/20 Nails] Acetaminophen Tab [Tylenol] 650 mg PO Q4H PRN 03/23/20 12/01/20 Cinnamon Bark [Cinnamon] 500 mg PO DAILY 03/23/20 12/01/20 Famotidine [Pepcid] 20 mg PO HS 03/23/20 12/01/20 Magnesium 200 mg PO DAILY 03/23/20 12/01/20 Rosuvastatin Calcium [Crestor] 5 mg PO HS 03/23/20 12/01/20 Vitamin B Complex 1 cap PO DAILY 03/23/20 12/01/20 metFORMIN HCL [Glucophage] 500 mg PO W/SUPPER 03/23/20 12/01/20 Cholecalciferol [Vitamin D3 (25 25 mcg PO DAILY 12/01/20 12/01/20 Mcg = 1000 Iu)] Turmeric Root Extract [Turmeric] 500 mg PO DAILY 12/01/20 12/01/20 Vitamin E 1,000 unit PO DAILY 12/01/20 12/01/20 Previous Rx's Medication Instructions Recorded Nitroglycerin Sl Tabs [Nitrostat] 0.4 mg SUBLINGUAL Q5M PRN #25 tab 05/13/19 Amoxic-Pot Clav 875-125Mg 1 tab PO Q12HR 7 Days #14 tab 11/01/20 [Augmentin 875-125] Amoxic-Pot Clav 875-125Mg 1 tab PO Q12HR 7 Days #14 tab 12/01/20 [Augmentin 875-125] metroNIDAZOLE [Flagyl] 500 mg PO TID 7 Days #21 tab 12/01/20 Allergies Allergy/AdvReac Type Severity Reaction Status Date / Time ibuprofen Allergy Unknown Verified 01/08/21 11:20 amoxicillin AdvReac Vomiting Verified 01/08/21 11:20 ciprofloxacin [From Cipro] AdvReac Unknown Verified 01/08/21 11:20 ciprofloxacin HCl AdvReac Unknown Verified 01/08/21 11:20 [From Cipro] Review of Systems ROS Statement: Those systems with pertinent positive or pertinent negative responses have been documented in the HPI. ROS Other: All systems not noted in ROS Statement are negative. Past Medical History Past Medical History: Diabetes Mellitus, GERD/Reflux, Hyperlipidemia, Hypertension Additional Past Medical History / Comment(s): diverticulosis, History of Any Multi-Drug Resistant Organisms: None Reported Past Surgical History: Hernia Repair Additional Past Surgical History / Comment(s): LEFT OVARY REMOVAL, Additional Past Anesthesia/Blood Transfusion Reaction / Comment(s): need alot of anesthesia, no blood transfusion Past Psychological History: No Psychological Hx Reported Smoking Status: Former smoker Past Alcohol Use History: Occasional Past Drug Use History: None Reported - Past Family History Mother Family Medical History: Cancer, CVA/TIA, Hyperlipidemia, Hypertension, Myocardial Infarction ([place]) Additional Family Medical History / Comment(s): lung cancer Father History Unknown: Yes Family Medical History: Cancer, Mitral Valve Prolapse (MVP) General Exam Limitations: no limitations General appearance: alert, in no apparent distress, other (Physical well-developed, well-nourished adult female patient in no acute distress. Vital signs upon presentation are temperature 97.6F, pulse 92, respirations 18, blood pressure 138/87, pulse ox 100% on room air.) Eye exam: Present: normal appearance, PERRL, EOMI. Absent: scleral icterus, conjunctival injection, periorbital swelling ENT exam: Present: normal exam, normal oropharynx, mucous membranes moist Respiratory exam: Present: normal lung sounds bilaterally. Absent: respiratory distress, wheezes, rales, rhonchi, stridor Cardiovascular Exam: Present: regular rate, normal rhythm, normal heart sounds. Absent: systolic murmur, diastolic murmur, rubs, gallop, clicks Extremities exam: Present: normal inspection, full ROM, tenderness (Left medial elbow), normal capillary refill, other (Skin to the left arm is pink, warm, dry. Cap refill less than 3 seconds. Radial pulse 2+. No swelling. Full range of motion of the elbow is intact.). Absent: pedal edema, joint swelling, calf tenderness Neurological exam: Present: alert, oriented X3, CN II-XII intact Psychiatric exam: Present: normal affect, normal mood Skin exam: Present: warm, dry, intact, normal color. Absent: rash Course Vital Signs 01/08/21 01/08/21 11:17 12:07 Temperature 97.6 F Pulse Rate 92 81 Respiratory 18 18 Rate Blood Pressure 138/87 125/83 O2 Sat by Pulse 100 97 Oximetry Medical Decision Making - Medical Decision Making 60-year-old female patient presented to the emergency department today for evaluation of left elbow pain and low blood pressures after donating plasma yesterday. Physical examination did reveal tenderness over the medial aspect of the elbow. No arm swelling. Radial pulse intact. No redness or ecchymosis. Blood pressures here were within normal ranges. We did discuss increasing fluids. Applying ice to the elbow. She is instructed to follow-up with the primary care physician for recheck in 1-2 days. Return parameters were discussed in detail. She verbalizes understanding and agrees with this plan. Case discussed in my attending Dr. Julio. Disposition Clinical Impression: Left arm pain Disposition: HOME SELF-CARE Condition: Good Instructions (If sedation given, give patient instructions): Hypotension (ED), Arm Pain (ED) Additional Instructions: Increase fluids. Apply ice or use compression for the left arm. Return if you develop any significant swelling, redness, fever, or chills. Follow-up with her primary care physician for recheck in 1-2 days. Return for any new, worsening, or concerning symptoms. Is patient prescribed a controlled substance at d/c from ED?: No Referrals: Nguyen Moore LMSW [Door Liner Helper] - 1-2 days Time of Disposition: 12:09
[2021-01-08 12:08] VITALS: BP 125/83; PULSE 81
== END 2021-01-08 12:27 | disposition home or self-care (01) ==
LOC: EC 11:14
DX: M25.522 Pain in left elbow (principal); E11.9 Type 2 diabetes mellitus without complications; E78.5 Hyperlipidemia, unspecified; I10 Essential (primary) hypertension; K21.9 Gastro-esophageal reflux disease without esophagitis; Z87.891 Personal history of nicotine dependence; Z79.899 Other long term (current) drug therapy; Z79.84 Long term (current) use of oral hypoglycemic drugs; Z88.1 Allergy status to other antibiotic agents; Z88.6 Allergy status to analgesic agent
CPT/HCPCS: 99283

== ENCOUNTER 2021-03-07 09:49 | Emergency (ER) | payer BC ==
[2021-03-07 10:01] VITALS: TEMP 98.2
[2021-03-07] MEDS ORDERED: MECLIZINE 25 MG TAB PO STA (10:16)
[2021-03-07] MEDS ORDERED: SODIUM CHLORIDE 0.9% 1,000 ML IV STA (10:16)
[2021-03-07] MEDS ORDERED: ONDANSETRON 4 MG/2 ML VIAL IVP STA (10:16)
[2021-03-07] MEDS ORDERED: traMADol 50 MG TAB PO STA (10:17)
[2021-03-07] MEDS ORDERED: METOCLOPRAMIDE 5 MG/ML 2 ML VIAL IVP STA (10:18)
[2021-03-07] MEDS ORDERED: diphenhydrAMINE 50 MG/ML 1 ML VIAL IVP STA (10:18)
--- NOTE | 2021-03-07 10:21 | ED ---
Dizziness HPI - General Chief Complaint: Dizziness Stated Complaint: dizziness Time Seen by Provider: 03/07/21 10:05 Source: patient Mode of arrival: ambulatory Limitations: no limitations - History of Present Illness Initial Comments: 60-year-old female with history of neuralgia and vertigo presents to emergency Department with a chief complaint of a headache and vertigo. Patient reports her symptoms began earlier today. States her headache started this morning mostly located in the occipital region of the head without any radiation. This feels like her typical headache but slightly worse in severity. She reports dizziness where the room was spinning around her but denies associated lightheadedness at this time. States the dizziness is increased whenever she is laying flat gradually subsides. She denies taking any medication for her cheikh tigo. She does report some nausea but denies any vomiting. She denies one- sided weakness or paresthesias, visual changes, gait instability, abdominal pain, chest pain or shortness of breath. Denies any fevers chills or neck stiffness. - Related Data Home Medications Medication Instructions Recorded Confirmed RX: amLODIPine [Norvasc] 7.5 mg PO HS 01/30/16 03/07/21 RX: Vitamin C/Biotin [Hair, Skin 1 tab PO DAILY 05/12/19 03/07/21 and Nails] Cinnamon Bark [Cinnamon] 500 mg PO DAILY 03/23/20 03/07/21 Famotidine [Pepcid] 20 mg PO HS 03/23/20 03/07/21 RX: Magnesium 200 mg PO DAILY 03/23/20 03/07/21 RX: Vitamin B Complex 1 cap PO DAILY 03/23/20 03/07/21 Rosuvastatin Calcium [Crestor] 5 mg PO HS 03/23/20 03/07/21 Cholecalciferol [Vitamin D3 (25 25 mcg PO DAILY 12/01/20 03/07/21 Mcg = 1000 Iu)] RX: Vitamin E 1,000 unit PO DAILY 12/01/20 03/07/21 Turmeric Root Extract [Turmeric] 500 mg PO DAILY 12/01/20 03/07/21 Fexofenadine HCl [Olga Allergy] 180 mg PO DAILY 03/07/21 03/07/21 RX: Spironolactone 25 mg PO DAILY 03/07/21 03/07/21 Previous Rx's Medication Instructions Recorded RX: Nitroglycerin Sl Tabs 0.4 mg SUBLINGUAL Q5M PRN #25 tab 05/13/19 [Nitrostat] Meclizine [Antivert] 25 mg PO TID PRN #15 tab 03/07/21 Allergies Allergy/AdvReac Type Severity Reaction Status Date / Time amoxicillin AdvReac Nausea & Verified 03/07/21 11:25 Vomiting ciprofloxacin [From Cipro] AdvReac Nausea & Verified 03/07/21 11:25 Vomiting ciprofloxacin HCl AdvReac Nausea & Verified 03/07/21 11:25 [From Cipro] Vomiting ibuprofen AdvReac tachycardia Verified 03/07/21 11:25 Review of Systems ROS Statement: Those systems with pertinent positive or pertinent negative responses have been documented in the HPI. ROS Other: All systems not noted in ROS Statement are negative. Past Medical History Past Medical History: Diabetes Mellitus, GERD/Reflux, Hyperlipidemia, Hypertension Additional Past Medical History / Comment(s): diverticulosis, vertigo History of Any Multi-Drug Resistant Organisms: None Reported Past Surgical History: Hernia Repair Additional Past Surgical History / Comment(s): LEFT OVARY REMOVAL, Additional Past Anesthesia/Blood Transfusion Reaction / Comment(s): need alot of anesthesia, no blood transfusion Past Psychological History: No Psychological Hx Reported Smoking Status: Former smoker Past Alcohol Use History: Occasional Past Drug Use History: None Reported - Past Family History Mother Family Medical History: Cancer, CVA/TIA, Hyperlipidemia, Hypertension, Myocardial Infarction ([place]) Additional Family Medical History / Comment(s): lung cancer Father History Unknown: Yes Family Medical History: Cancer, Mitral Valve Prolapse (MVP) General Exam Limitations: no limitations General appearance: alert, in no apparent distress, obese Head exam: Present: atraumatic, normocephalic, normal inspection Eye exam: Present: normal appearance, PERRL, EOMI Pupils: Present: normal accommodation ENT exam: Present: normal exam, normal oropharynx, mucous membranes moist, TM's normal bilaterally, normal external ear exam Neck exam: Present: normal inspection, full ROM. Absent: tenderness Respiratory exam: Present: normal lung sounds bilaterally. Absent: respiratory distress, wheezes, rales, rhonchi, stridor, chest wall tenderness Cardiovascular Exam: Present: regular rate, normal rhythm, normal heart sounds. Absent: systolic murmur, diastolic murmur GI/Abdominal exam: Present: soft. Absent: distended, tenderness, guarding, rebound Extremities exam: Present: normal inspection, full ROM, normal capillary refill. Absent: tenderness, pedal edema, joint swelling Back exam: Present: normal inspection, full ROM. Absent: tenderness, CVA tenderness (R), CVA tenderness (L) Neurological exam: Present: alert, oriented X3, CN II-XII intact, normal gait Expanded Patient oriented to: Present: person, place, time Speech: Present: fluid speech Cranial nerves: EOM's Intact: Normal, Gag Reflex: Normal, Tongue Deviation: Normal, Nystagmus: Normal Motor strength exam: RUE: 5, LUE: 5, RLE: 5, LLE: 5 Psychiatric exam: Present: normal affect, normal mood Skin exam: Present: warm, dry, intact, normal color Course Vital Signs 03/07/21 03/07/21 09:58 11:31 Temperature 98.2 F Pulse Rate 79 72 Respiratory 18 18 Rate Blood Pressure 128/83 122/82 O2 Sat by Pulse 98 96 Oximetry EKG Findings - EKG Comments: EKG Findings:: Sinus rhythm without acute ischemic changes. Ventricular rate 77, SD 152, QRS 80, QTC 405. Medical Decision Making - Medical Decision Making 60-year-old female with history of neuralgia and vertigo presents to emergency Department with a chief complaint of a headache and vertigo. On physical examination, patient is well-appearing. Positive [place]-Hall[place]. Laboratory work reveals no acute findings. CT of the brain shows no intracranial pathologies. Patient was given IV fluids, Antivert, Reglan and Benadryl. On Reevaluation, patient reports improvement in her symptoms. States the dizziness is has resolved. She still able to ablate on her own. EKG was showing no acute findings. Patient will follow up with a primary care physician. I will prescribe her Antivert. Return parameters were thoroughly discussed the patient was attending and agreeable. Case discussed with Dr. Mendoza. - Lab Data Result diagrams: 03/07/21 10:21 03/07/21 10:21 Lab Results 03/07/21 03/07/21 03/07/21 Range/Units 10:21 10:21 10:21 WBC 7.0 (3.8-10.6) k/uL RBC 4.93 (3.80-5.40) m/uL Hgb 15.1 (11.4-16.0) gm/dL Hct 41.0 (34.0-46.0) % MCV 83.1 (80.0-100.0) fL MCH 30.7 (25.0-35.0) pg MCHC 36.9 (31.0-37.0) g/dL RDW 12.5 (11.5-15.5) % Plt Count 274 (150-450) k/uL MPV 6.6 Neutrophils % 65 % Lymphocytes % 27 % Monocytes % 6 % Eosinophils % 1 % Basophils % 1 % Neutrophils # 4.5 (1.3-7.7) k/uL Lymphocytes # 1.9 (1.0-4.8) k/uL Monocytes # 0.4 (0-1.0) k/uL Eosinophils # 0.1 (0-0.7) k/uL Basophils # 0.0 (0-0.2) k/uL PT 10.2 (9.0-12.0) sec INR 0.9 (<1.2) Sodium (137-145) mmol/L Potassium (3.5-5.1) mmol/L Chloride (98-107) mmol/L Carbon Dioxide (22-30) mmol/L Anion Gap mmol/L BUN (7-17) mg/dL Creatinine (0.52-1.04) mg/dL Est GFR (CKD-EPI)AfAm (>60 ml/min/1.73 sqM) Est GFR (CKD-EPI)NonAf (>60 ml/min/1.73 sqM) Glucose (74-99) mg/dL Calcium (8.4-10.2) mg/dL Total Bilirubin (0.2-1.3) mg/dL AST (14-36) U/L ALT (4-34) U/L Alkaline Phosphatase (38-126) U/L Total Protein (6.3-8.2) g/dL Albumin (3.5-5.0) g/dL Urine Color Light Yellow Urine Appearance Clear (Clear) Urine pH 7.0 (5.0-8.0) Ur Specific [place] 1.003 (1.001-1.035) Urine Protein Negative (Negative) Urine Glucose (UA) Negative (Negative) Urine Ketones Negative (Negative) Urine Blood Negative (Negative) Urine Nitrite Negative (Negative) Urine Bilirubin Negative (Negative) Urine Urobilinogen <2.0 (<2.0) mg/dL Ur Leukocyte Esterase Negative (Negative) 03/07/21 Range/Units 10:21 WBC (3.8-10.6) k/uL RBC (3.80-5.40) m/uL Hgb (11.4-16.0) gm/dL Hct (34.0-46.0) % MCV (80.0-100.0) fL MCH (25.0-35.0) pg MCHC (31.0-37.0) g/dL RDW (11.5-15.5) % Plt Count (150-450) k/uL MPV Neutrophils % % Lymphocytes % % Monocytes % % Eosinophils % % Basophils % % Neutrophils # (1.3-7.7) k/uL Lymphocytes # (1.0-4.8) k/uL Monocytes # (0-1.0) k/uL Eosinophils # (0-0.7) k/uL Basophils # (0-0.2) k/uL PT (9.0-12.0) sec INR (<1.2) Sodium 137 (137-145) mmol/L Potassium 4.5 (3.5-5.1) mmol/L Chloride 103 (98-107) mmol/L Carbon Dioxide 24 (22-30) mmol/L Anion Gap 10 mmol/L BUN 8 (7-17) mg/dL Creatinine 0.74 (0.52-1.04) mg/dL Est GFR (CKD-EPI)AfAm >90 (>60 ml/min/1.73 sqM) Est GFR (CKD-EPI)NonAf 90 (>60 ml/min/1.73 sqM) Glucose 132 H (74-99) mg/dL Calcium 10.7 H (8.4-10.2) mg/dL Total Bilirubin 0.7 (0.2-1.3) mg/dL AST 38 H (14-36) U/L ALT 29 (4-34) U/L Alkaline Phosphatase 85 (38-126) U/L Total Protein 7.8 (6.3-8.2) g/dL Albumin 4.8 (3.5-5.0) g/dL Urine Color Urine Appearance (Clear) Urine pH (5.0-8.0) Ur Specific [place] (1.001-1.035) Urine Protein (Negative) Urine Glucose (UA) (Negative) Urine Ketones (Negative) Urine Blood (Negative) Urine Nitrite (Negative) Urine Bilirubin (Negative) Urine Urobilinogen (<2.0) mg/dL Ur Leukocyte Esterase (Negative) Disposition Clinical Impression: Dizziness, Headache Disposition: HOME SELF-CARE Condition: Stable Instructions (If sedation given, give patient instructions): Dizziness (ED) Additional Instructions: Please return to the Emergency Department if symptoms worsen or any other concerns. Prescriptions: Meclizine [Antivert] 25 mg PO TID PRN #15 tab PRN Reason: Vertigo Is patient prescribed a controlled substance at d/c from ED?: No Referrals: Cyrus Peck DO [Primary Care Provider] - 1-2 days Time of Disposition: 11:58
[2021-03-07 10:50] LABS: Appearance,Urine Clear (Clear); Basophils % (A) 1 %; Bilirubin,Urine Negative (Negative); Blood,Urine Negative (Negative); Color,Urine Light Yellow; Eosinophils # (A) 0.1 k/uL (0-0.7); Eosinophils % (A) 1 %; Glucose,Urine (UA) Negative (Negative); HGB 15.1 gm/dL (11.4-16.0); Ketones,Urine Negative (Negative); Leukocyte Esterase,Urine Negative (Negative); Lymphocytes # (A) 1.9 k/uL (1.0-4.8); Lymphocytes % (A) 27 %; MCH 30.7 pg (25.0-35.0); MCHC 36.9 g/dL (31.0-37.0); MCV 83.1 fL (80.0-100.0); Mean Platelet Volume 6.6; Monocytes # (A) 0.4 k/uL (0-1.0); Monocytes % (A) 6 %; Neutrophils # (A) 4.5 k/uL (1.3-7.7); Neutrophils % (A) 65 %; Nitrite,Urine Negative (Negative); Platelet Count 274 k/uL (150-450); Protein,Urine Negative (Negative); RBC 4.93 m/uL (3.80-5.40); RDW 12.5 % (11.5-15.5); Specific Gravity,Urine 1.003 (1.001-1.035); Urobilinogen,Urine <2.0 mg/dL (<2.0)
[2021-03-07 10:59] LABS: Potassium 4.5 mmol/L (3.5-5.1)
[2021-03-07 11:00] LABS: ALT 29 U/L (4-34); AST 38 U/L (14-36); African American GFR (CKD) >90 (>60 ml/min/1.73 sqM); Albumin 4.8 g/dL (3.5-5.0); Alkaline Phosphatase 85 U/L (38-126); Anion Gap 10 mmol/L; Blood Urea Nitrogen 8 mg/dL (7-17); Calcium 10.7 mg/dL (8.4-10.2); Carbon Dioxide 24 mmol/L (22-30); Chloride 103 mmol/L (98-107); Glucose 132 mg/dL (74-99); Non-African American GFR(CKD) 90 (>60 ml/min/1.73 sqM); Sodium 137 mmol/L (137-145); Total Bilirubin 0.7 mg/dL (0.2-1.3); Total Protein 7.8 g/dL (6.3-8.2)
--- NOTE | 2021-03-07 11:15 | CT ---
EXAMINATION TYPE: CT brain wo con DATE OF EXAM: 03/07/2021 COMPARISON: 01/30/2016 INDICATION: Neuralgia, vertigo, vomiting, headache DLP: 1143.4 mGycm, Automated exposure control for dose reduction was used. CONTRAST: None CT of the brain is performed utilizing 3 mm thick sections through the posterior fossa and 3 mm thick sections through the remaining calvarium. Study is performed within 24 hours of arrival to the hosp [facility]. No abnormal hyperdensity is present to suggest an acute intracranial hemorrhage. No mass lesion is evident. Some minimal calcification may be along the left parietal region. No signi ficant mass effect on the adjacent brain is evident could be related to a calcified meningioma. Serie s 201 image 46. No acute infarcts are evident. Ventricles and sulci are appropriate for the patient age. Paranasal sinuses and mastoid air cells within the [id number] are clear. IMPRESSIONS: 1. No acute intracranial process.
[2021-03-07 11:41] LABS: INR 0.9 (<1.2); Prothrombin Time 10.2 sec (9.0-12.0)
[2021-03-07 12:33] VITALS: BP 124/76; PULSE 101; RESP 20
== END 2021-03-07 12:33 | disposition home or self-care (01) ==
LOC: EC 09:49
DX: R42 Dizziness and giddiness (principal); R51.9 Headache, unspecified; R11.0 Nausea; E11.9 Type 2 diabetes mellitus without complications; E78.5 Hyperlipidemia, unspecified; I10 Essential (primary) hypertension; K21.9 Gastro-esophageal reflux disease without esophagitis; Z79.899 Other long term (current) drug therapy; Z87.891 Personal history of nicotine dependence; Z88.0 Allergy status to penicillin; Z88.1 Allergy status to other antibiotic agents; Z88.6 Allergy status to analgesic agent
CPT/HCPCS: 36415; 93005; 80053; 84484; 85025; 85610; 81003; 70450; 99284; 96374; 96375; 96361; J1200; J2765

== ENCOUNTER 2021-04-03 09:05 | Emergency (ER) | payer BC ==
[2021-04-03 09:11] VITALS: TEMP 98.3
[2021-04-03] MEDS ORDERED: SODIUM CHLORIDE 0.9% 1,000 ML IV STA (09:34)
[2021-04-03 09:59] LABS: Basophils # (A) 0.1 k/uL (0-0.2); Basophils % (A) 1 %; Eosinophils # (A) 0.1 k/uL (0-0.7); Eosinophils % (A) 1 %; HCT 40.5 % (34.0-46.0); HGB 14.3 gm/dL (11.4-16.0); Lymphocytes # (A) 1.6 k/uL (1.0-4.8); Lymphocytes % (A) 22 %; MCH 30.3 pg (25.0-35.0); MCHC 35.3 g/dL (31.0-37.0); MCV 85.7 fL (80.0-100.0); Mean Platelet Volume 6.5; Monocytes # (A) 0.3 k/uL (0-1.0); Monocytes % (A) 5 %; Neutrophils # (A) 5.2 k/uL (1.3-7.7); Neutrophils % (A) 71 %; Platelet Count 327 k/uL (150-450); RBC 4.72 m/uL (3.80-5.40); RDW 13.3 % (11.5-15.5); WBC 7.3 k/uL (3.8-10.6)
[2021-04-03 10:02] LABS: Appearance,Urine Clear (Clear); Bacteria,Urine Rare /hpf; Bilirubin,Urine Negative (Negative); Blood,Urine Negative (Negative); Color,Urine Light Yellow; Glucose,Urine (UA) Negative (Negative); Ketones,Urine Negative (Negative); Leukocyte Esterase,Urine Small (Negative); Nitrite,Urine Negative (Negative); Protein,Urine Negative (Negative); RBC,Urine 1 /hpf (0-5); Specific Gravity,Urine 1.004 (1.001-1.035); Squamous Epithelial Cell,Urine 2 /hpf (0-4); Urobilinogen,Urine <2.0 mg/dL (<2.0); WBC,Urine 4 /hpf (0-5)
[2021-04-03 10:08] LABS: Albumin 4.7 g/dL (3.5-5.0); Calcium 10.6 mg/dL (8.4-10.2); Potassium 4.3 mmol/L (3.5-5.1); Total Bilirubin 0.4 mg/dL (0.2-1.3); Total Protein 7.6 g/dL (6.3-8.2)
--- NOTE | 2021-04-03 11:07 | CT ---
EXAMINATION TYPE: CT abdomen pelvis w con DATE OF EXAM: 04/03/2021 HISTORY: LLQ pain, history of diverticulitis CT DLP: 1298.8mGycm Automated Exposure Control for Dose Reduction was Utilized. CONTRAST: CT scan of the abdomen and pelvis is performed with IV Contrast, patient injected with 100 mL of Isov ue 300. COMPARISON: 12/01/2020 FINDINGS: LUNG BASES: No significant abnormality appreciated. INCLUDED CARDIAC STRUCTURES: No significant abnormality appreciated LIVER: Hepatic steatosis. Focal fatty sparing segment 4. GALLBLADDER : No significant abnormality is appreciated. BILIARY TREE: No abnormal biliary tree dilation. PANCREAS: No significant abnormality is seen. SPLEEN: No significant abnormality is seen. ADRENALS: No significant abnormality is seen. KIDNEYS AND URETERS: No significant abnormality is seen. URINARY BLADDER: No significant abnormality is appreciated. ESOPHAGUS: Gastroesophageal hiatal hernia slightly enlarged compared to prior study. STOMACH: No significant abnormality is seen. SMALL BOWEL: No significant abnormality is seen. LARGE BOWEL: Pancolonic diverticulosis is again seen. There is no evidence of complicated diverticuli tis. There is no convincing evidence of acute diverticulitis. APPENDIX: Normal in appearance HERNIAS: No significant abnormality is seen. UTERUS/ADNEXA: No gross abnormality seen. PERITONEUM/MESENTRY: No pneumoperitoneum or ascites. LYMPH NODES: No enlarged retroperitoneal or pelvic lymph nodes are appreciated. MAJOR VASCULAR STRUCTURES: Nonaneurysmal aorta. Unremarkable inferior vena cava. OSSEOUS STRUCTURES: No acute osseous abnormality. Mild narrowing L5-S1. Mild facet joint arthropathy lower lumbar spine. The soft tissue is grossly intact. IMPRESSION: 1. PANCOLONIC DIVERTICULOSIS WITHOUT EVIDENCE OF COMPLICATED DIVERTICULITIS. NO CONVINCING EVIDENCE O F ACUTE DIVERTICULITIS THOUGH EARLY OR MINIMAL ACUTE DIVERTICULITIS CANNOT BE EXCLUDED. 2. GASTROESOPHAGEAL HIATAL HERNIA, SLIGHTLY ENLARGED COMPARED TO PRIOR.
--- NOTE | 2021-04-03 11:33 | ED ---
Abdominal Pain HPI - General Chief Complaint: Abdominal Pain Stated Complaint: abd pain Time Seen by Provider: 04/03/21 09:15 Source: patient, RN notes reviewed Mode of arrival: ambulatory Limitations: no limitations - History of Present Illness Initial Comments: This a 60-year-old female presents emergency Department with chief complaint abdominal pain. Patient has history of diverticulitis. Patient states that she started on Cipro Flagyl at as she assumed it was diverticulitis. Patient states he was not improving infection elevated and became concerned. Denies any fevers chills or night sweats mild pain in the left side. Patient has no dysuria no hematuria no stenting diarrhea melena hematochezia - Related Data Home Medications Medication Instructions Recorded Confirmed amLODIPine [Norvasc] 7.5 mg PO HS 01/30/16 04/03/21 Vitamin C/Biotin [Hair, Skin and 1 tab PO DAILY 05/12/19 04/03/21 Nails] Cinnamon Bark [Cinnamon] 500 mg PO DAILY 03/23/20 04/03/21 Famotidine [Pepcid] 20 mg PO HS 03/23/20 04/03/21 Magnesium 200 mg PO DAILY 03/23/20 04/03/21 Rosuvastatin Calcium [Crestor] 5 mg PO HS 03/23/20 04/03/21 Vitamin B Complex 1 cap PO DAILY 03/23/20 04/03/21 Cholecalciferol [Vitamin D3 (25 25 mcg PO DAILY 12/01/20 04/03/21 Mcg = 1000 Iu)] Turmeric Root Extract [Turmeric] 500 mg PO DAILY 12/01/20 04/03/21 Vitamin E 1,000 unit PO DAILY 12/01/20 04/03/21 Fexofenadine HCl [Olga Allergy] 180 mg PO DAILY PRN 03/07/21 04/03/21 Spironolactone 25 mg PO DAILY 03/07/21 04/03/21 Ciprofloxacin HCl [Cipro] 500 mg PO Q12HR 04/03/21 04/03/21 Fluticasone Nasal [place] [Flonase 2 spr EA NOSTRIL DAILY 04/03/21 04/03/21 Nasal [place]] Mupirocin [Mupirocin 2%] 1 applic TOPICAL BID PRN 04/03/21 04/03/21 metroNIDAZOLE [Flagyl] 500 mg PO TID 04/03/21 04/03/21 Previous Rx's Medication Instructions Recorded Nitroglycerin Sl Tabs [Nitrostat] 0.4 mg SUBLINGUAL Q5M PRN #25 tab 05/13/19 Meclizine [Antivert] 25 mg PO TID PRN #15 tab 03/07/21 Allergies Allergy/AdvReac Type Severity Reaction Status Date / Time amoxicillin AdvReac Nausea & Verified 04/03/21 10:47 Vomiting ciprofloxacin [From Cipro] AdvReac Nausea & Verified 04/03/21 10:47 Vomiting ciprofloxacin HCl AdvReac Nausea & Verified 04/03/21 10:47 [From Cipro] Vomiting ibuprofen AdvReac tachycardia Verified 04/03/21 10:47 Review of Systems ROS Statement: Those systems with pertinent positive or pertinent negative responses have been documented in the HPI. ROS Other: All systems not noted in ROS Statement are negative. Past Medical History Past Medical History: Diabetes Mellitus, GERD/Reflux, Hyperlipidemia, Hypertension Additional Past Medical History / Comment(s): diverticulosis, vertigo History of Any Multi-Drug Resistant Organisms: None Reported Past Surgical History: Hernia Repair Additional Past Surgical History / Comment(s): LEFT OVARY REMOVAL, Additional Past Anesthesia/Blood Transfusion Reaction / Comment(s): need alot of anesthesia, no blood transfusion Past Psychological History: No Psychological Hx Reported Smoking Status: Former smoker Past Alcohol Use History: Occasional Past Drug Use History: None Reported - Past Family History Mother Family Medical History: Cancer, CVA/TIA, Hyperlipidemia, Hypertension, Myocardial Infarction ([place]) Additional Family Medical History / Comment(s): lung cancer Father History Unknown: Yes Family Medical History: Cancer, Mitral Valve Prolapse (MVP) General Exam Limitations: no limitations General appearance: alert, in no apparent distress Head exam: Present: atraumatic, normocephalic, normal inspection Neck exam: Present: normal inspection, full ROM. Absent: tenderness, meningismus, lymphadenopathy Respiratory exam: Present: normal lung sounds bilaterally. Absent: respiratory distress, wheezes, rales, rhonchi, stridor Cardiovascular Exam: Present: regular rate, normal rhythm, normal heart sounds. Absent: systolic murmur, diastolic murmur, rubs, gallop, clicks GI/Abdominal exam: Present: soft, tenderness (Minimal), normal bowel sounds. Absent: distended, guarding, rebound, rigid Course Vital Signs 04/03/21 09:09 Temperature 98.3 F Pulse Rate 83 Respiratory 18 Rate Blood Pressure 138/85 O2 Sat by Pulse 96 Oximetry Medical Decision Making - Medical Decision Making Labs reviewed CT shows evidence of possible very minimal diverticulitis patient will continue antibiotics will follow-up PCP and return for worsening changes symptoms. - Lab Data Result diagrams: 04/03/21 09:37 04/03/21 09:37 Lab Results 04/03/21 04/03/21 04/03/21 Range/Units 09:37 09:37 09:37 WBC 7.3 (3.8-10.6) k/uL RBC 4.72 (3.80-5.40) m/uL Hgb 14.3 (11.4-16.0) gm/dL Hct 40.5 (34.0-46.0) % MCV 85.7 (80.0-100.0) fL MCH 30.3 (25.0-35.0) pg MCHC 35.3 (31.0-37.0) g/dL RDW 13.3 (11.5-15.5) % Plt Count 327 (150-450) k/uL MPV 6.5 Neutrophils % 71 % Lymphocytes % 22 % Monocytes % 5 % Eosinophils % 1 % Basophils % 1 % Neutrophils # 5.2 (1.3-7.7) k/uL Lymphocytes # 1.6 (1.0-4.8) k/uL Monocytes # 0.3 (0-1.0) k/uL Eosinophils # 0.1 (0-0.7) k/uL Basophils # 0.1 (0-0.2) k/uL Sodium 135 L (137-145) mmol/L Potassium 4.3 (3.5-5.1) mmol/L Chloride 102 (98-107) mmol/L Carbon Dioxide 22 (22-30) mmol/L Anion Gap 11 mmol/L BUN 15 (7-17) mg/dL Creatinine 0.94 (0.52-1.04) mg/dL Est GFR (CKD-EPI)AfAm 77 (>60 ml/min/1.73 sqM) Est GFR (CKD-EPI)NonAf 67 (>60 ml/min/1.73 sqM) Glucose 149 H (74-99) mg/dL Plasma Lactic Acid [place] (0.7-2.0) mmol/L Calcium 10.6 H (8.4-10.2) mg/dL Total Bilirubin 0.4 (0.2-1.3) mg/dL AST 40 H (14-36) U/L ALT 31 (4-34) U/L Alkaline Phosphatase 79 (38-126) U/L Total Protein 7.6 (6.3-8.2) g/dL Albumin 4.7 (3.5-5.0) g/dL Lipase 115 (23-300) U/L Urine Color Light Yellow Urine Appearance Clear (Clear) Urine pH 5.0 (5.0-8.0) Ur Specific [place] 1.004 (1.001-1.035) Urine Protein Negative (Negative) Urine Glucose (UA) Negative (Negative) Urine Ketones Negative (Negative) Urine Blood Negative (Negative) Urine Nitrite Negative (Negative) Urine Bilirubin Negative (Negative) Urine Urobilinogen <2.0 (<2.0) mg/dL Ur Leukocyte Esterase Small H (Negative) Urine RBC 1 (0-5) /hpf Urine WBC 4 (0-5) /hpf Ur Squamous Epith Cells 2 (0-4) /hpf Urine Bacteria Rare H (None) /hpf 04/03/21 Range/Units 09:37 WBC (3.8-10.6) k/uL RBC (3.80-5.40) m/uL Hgb (11.4-16.0) gm/dL Hct (34.0-46.0) % MCV (80.0-100.0) fL MCH (25.0-35.0) pg MCHC (31.0-37.0) g/dL RDW (11.5-15.5) % Plt Count (150-450) k/uL MPV Neutrophils % % Lymphocytes % % Monocytes % % Eosinophils % % Basophils % % Neutrophils # (1.3-7.7) k/uL Lymphocytes # (1.0-4.8) k/uL Monocytes # (0-1.0) k/uL Eosinophils # (0-0.7) k/uL Basophils # (0-0.2) k/uL Sodium (137-145) mmol/L Potassium (3.5-5.1) mmol/L Chloride (98-107) mmol/L Carbon Dioxide (22-30) mmol/L Anion Gap mmol/L BUN (7-17) mg/dL Creatinine (0.52-1.04) mg/dL Est GFR (CKD-EPI)AfAm (>60 ml/min/1.73 sqM) Est GFR (CKD-EPI)NonAf (>60 ml/min/1.73 sqM) Glucose (74-99) mg/dL Plasma Lactic Acid [place] 1.4 (0.7-2.0) mmol/L Calcium (8.4-10.2) mg/dL Total Bilirubin (0.2-1.3) mg/dL AST (14-36) U/L ALT (4-34) U/L Alkaline Phosphatase (38-126) U/L Total Protein (6.3-8.2) g/dL Albumin (3.5-5.0) g/dL Lipase (23-300) U/L Urine Color Urine Appearance (Clear) Urine pH (5.0-8.0) Ur Specific [place] (1.001-1.035) Urine Protein (Negative) Urine Glucose (UA) (Negative) Urine Ketones (Negative) Urine Blood (Negative) Urine Nitrite (Negative) Urine Bilirubin (Negative) Urine Urobilinogen (<2.0) mg/dL Ur Leukocyte Esterase (Negative) Urine RBC (0-5) /hpf Urine WBC (0-5) /hpf Ur Squamous Epith Cells (0-4) /hpf Urine Bacteria (None) /hpf Disposition Clinical Impression: Acute diverticulitis Disposition: HOME SELF-CARE Condition: Stable Instructions (If sedation given, give patient instructions): Diverticulitis (ED), Diverticulitis Diet (ED) Additional Instructions: Please return to the Emergency Department if symptoms worsen or any other concerns. Is patient prescribed a controlled substance at d/c from ED?: No Referrals: Cyrus Peck DO [Primary Care Provider] - 1-2 days Time of Disposition: 11:31
[2021-04-03 11:38] VITALS: BP 142/79; PULSE 86; RESP 16
== END 2021-04-03 11:37 | disposition home or self-care (01) ==
LOC: EC 09:05
DX: K57.30 Diverticulosis of large intestine without perforation or abscess without bleeding (principal); E11.9 Type 2 diabetes mellitus without complications; K21.9 Gastro-esophageal reflux disease without esophagitis; Z88.1 Allergy status to other antibiotic agents; Z88.0 Allergy status to penicillin; Z88.6 Allergy status to analgesic agent; Z87.891 Personal history of nicotine dependence; Z79.899 Other long term (current) drug therapy
CPT/HCPCS: 36415; 80053; 83605; 83690; 85025; 81001; 74177; 99284; 96360; 96361; Q9967

== ENCOUNTER 2021-08-09 16:36 | Emergency (ER) | payer BC, OTHER ==
--- NOTE | 2021-08-09 19:04 | ED ---
General Adult HPI - General Stated complaint: diverticulitis Time Seen by Provider: 08/09/21 19:02 - History of Present Illness Initial comments: 61 year-old female patient presents for evaluation of abdominal pain. Pain started 5 days ago. Does have history of diverticulitis and this pain feels similar. States pain is in the left lower quadrant, radiates up to the left upper abdomen. States she does have more frequent stools. Denies watery or bloody diarrhea. Denies any fever or chills. Denies vomiting. Denies chest pain or shortness of breath. Denies sweats. Did take a dose a Augmentin this morning. - Related Data Home Medications Medication Instructions Recorded Confirmed amLODIPine [Norvasc] 7.5 mg PO HS 01/30/16 08/09/21 Vitamin C/Biotin [Hair, Skin and 1 tab PO DAILY 05/12/19 08/09/21 Nails Chew] Famotidine [Pepcid] 20 mg PO HS 03/23/20 08/09/21 Rosuvastatin Calcium [Crestor] 5 mg PO HS 03/23/20 08/09/21 Vitamin B Complex 1 cap PO DAILY 03/23/20 08/09/21 Cholecalciferol [Vitamin D3 (25 25 mcg PO DAILY 12/01/20 08/09/21 Mcg = 1000 Iu)] Vitamin E 1,000 unit PO DAILY 12/01/20 08/09/21 Fexofenadine HCl [Olga Allergy] 180 mg PO DAILY PRN 03/07/21 08/09/21 Spironolactone 25 mg PO DAILY 03/07/21 08/09/21 Fluticasone Nasal [place] [Flonase 2 spr EA NOSTRIL DAILY PRN 04/03/21 08/09/21 Nasal [place]] Ascorbic Acid [Vitamin C] 1,000 mg PO DAILY 08/09/21 08/09/21 Vitamin A [Vitamin A (8,000 Units 2,400 mcg PO DAILY 08/09/21 08/09/21 = 2,400 MCG)] Zinc 50 mg PO DAILY 08/09/21 08/09/21 sitaGLIPtin [Januvia] 50 mg PO DAILY 08/09/21 08/09/21 Previous Rx's Medication Instructions Recorded Nitroglycerin Sl Tabs [Nitrostat] 0.4 mg SUBLINGUAL Q5M PRN #25 tab 05/13/19 Amoxic-Pot Clav 875-125Mg 1 tab PO Q12HR #20 tablet 08/09/21 [Augmentin 875-125] Allergies Allergy/AdvReac Type Severity Reaction Status Date / Time amoxicillin AdvReac Nausea & Verified 08/09/21 21:45 Vomiting ciprofloxacin [From Cipro] AdvReac Nausea & Verified 08/09/21 21:45 Vomiting ciprofloxacin HCl AdvReac Nausea & Verified 08/09/21 21:45 [From Cipro] Vomiting ibuprofen AdvReac tachycardia Verified 08/09/21 21:45 Review of Systems ROS Statement: Those systems with pertinent positive or pertinent negative responses have been documented in the HPI. ROS Other: All systems not noted in ROS Statement are negative. Past Medical History Past Medical History: Diabetes Mellitus, GERD/Reflux, Hyperlipidemia, Hypertension Additional Past Medical History / Comment(s): diverticulosis, vertigo History of Any Multi-Drug Resistant Organisms: None Reported Past Surgical History: Hernia Repair Additional Past Surgical History / Comment(s): LEFT OVARY REMOVAL, Additional Past Anesthesia/Blood Transfusion Reaction / Comment(s): need alot of anesthesia, no blood transfusion Past Psychological History: No Psychological Hx Reported Smoking Status: Former smoker Past Alcohol Use History: Occasional Past Drug Use History: None Reported - Past Family History Mother Family Medical History: Cancer, CVA/TIA, Hyperlipidemia, Hypertension, Myocardial Infarction ([place]) Additional Family Medical History / Comment(s): lung cancer Father History Unknown: Yes Family Medical History: Cancer, Mitral Valve Prolapse (MVP) General Exam General appearance: alert, in no apparent distress, other (This is a well developed, well nourished adult female patient in no acute distress. ) Respiratory exam: Present: normal lung sounds bilaterally. Absent: respiratory distress, wheezes, rales, rhonchi, stridor Cardiovascular Exam: Present: regular rate, normal rhythm, normal heart sounds. Absent: systolic murmur, diastolic murmur, rubs, gallop, clicks GI/Abdominal exam: Present: soft, normal bowel sounds. Absent: distended, tenderness, guarding, rebound, rigid Neurological exam: Present: alert, oriented X3, CN II-XII intact Psychiatric exam: Present: normal affect, normal mood Skin exam: Present: warm, dry, intact, normal color. Absent: rash Course Vital Signs 08/09/21 08/09/21 19:03 22:32 Temperature 98.6 F 98.2 F Pulse Rate 86 81 Respiratory 18 16 Rate Blood Pressure 133/79 128/78 O2 Sat by Pulse 99 97 Oximetry Medical Decision Making - Medical Decision Making 61-year-old female patient presents for evaluation of left lower quadrant abdominal pain that started this morning. She does have history of diverti culitis and it feels similar. Physical examination did reveal soft nontender abdomen. She is afebrile, vital signs. Labs are reviewed and show normal white blood cell count. Urinalysis has small amount of white blood cells is sent for culture. She will be discharged follow up with her primary care physician for recheck in 1-2 days. She is instructed to continue Augmentin for possibility of very early diverticulitis. Return parameters were discussed in detail. She verbalizes understanding and agrees with this plan. My attending is Dr. Colon. - Lab Data Result diagrams: 08/09/21 19:20 08/09/21 19:20 Lab Results 08/09/21 08/09/21 08/09/21 Range/Units 19:20 19:20 19:20 WBC 9.5 (3.8-10.6) k/uL RBC 5.33 (3.80-5.40) m/uL Hgb 15.8 (11.4-16.0) gm/dL Hct 47.6 H (34.0-46.0) % MCV 89.2 (80.0-100.0) fL MCH 29.6 (25.0-35.0) pg MCHC 33.1 (31.0-37.0) g/dL RDW 13.1 (11.5-15.5) % Plt Count 328 (150-450) k/uL MPV 6.6 Neutrophils % 64 % Lymphocytes % 28 % Monocytes % 5 % Eosinophils % 2 % Basophils % 1 % Neutrophils # 6.0 (1.3-7.7) k/uL Lymphocytes # 2.6 (1.0-4.8) k/uL Monocytes # 0.4 (0-1.0) k/uL Eosinophils # 0.1 (0-0.7) k/uL Basophils # 0.1 (0-0.2) k/uL Sodium 136 L (137-145) mmol/L Potassium 4.3 (3.5-5.1) mmol/L Chloride 98 (98-107) mmol/L Carbon Dioxide 26 (22-30) mmol/L Anion Gap 12 mmol/L BUN 15 (7-17) mg/dL Creatinine 0.92 (0.52-1.04) mg/dL Est GFR (CKD-EPI)AfAm 79 (>60 ml/min/1.73 sqM) Est GFR (CKD-EPI)NonAf 68 (>60 ml/min/1.73 sqM) Glucose 107 H (74-99) mg/dL Plasma Lactic Acid [place] 0.8 (0.7-2.0) mmol/L Calcium 11.2 H (8.4-10.2) mg/dL Total Bilirubin 0.5 (0.2-1.3) mg/dL AST 31 (14-36) U/L ALT 33 (4-34) U/L Alkaline Phosphatase 84 (38-126) U/L Total Protein 9.0 H (6.3-8.2) g/dL Albumin 5.0 (3.5-5.0) g/dL Lipase 137 (23-300) U/L Urine Color Urine Appearance (Clear) Urine pH (5.0-8.0) Ur Specific [place] (1.001-1.035) Urine Protein (Negative) Urine Glucose (UA) (Negative) Urine Ketones (Negative) Urine Blood (Negative) Urine Nitrite (Negative) Urine Bilirubin (Negative) Urine Urobilinogen (<2.0) mg/dL Ur Leukocyte Esterase (Negative) Urine RBC (0-5) /hpf Urine WBC (0-5) /hpf Urine WBC Clumps (None) /hpf Ur Squamous Epith Cells (0-4) /hpf Urine Bacteria (None) /hpf 08/09/21 Range/Units 21:18 WBC (3.8-10.6) k/uL RBC (3.80-5.40) m/uL Hgb (11.4-16.0) gm/dL Hct (34.0-46.0) % MCV (80.0-100.0) fL MCH (25.0-35.0) pg MCHC (31.0-37.0) g/dL RDW (11.5-15.5) % Plt Count (150-450) k/uL MPV Neutrophils % % Lymphocytes % % Monocytes % % Eosinophils % % Basophils % % Neutrophils # (1.3-7.7) k/uL Lymphocytes # (1.0-4.8) k/uL Monocytes # (0-1.0) k/uL Eosinophils # (0-0.7) k/uL Basophils # (0-0.2) k/uL Sodium (137-145) mmol/L Potassium (3.5-5.1) mmol/L Chloride (98-107) mmol/L Carbon Dioxide (22-30) mmol/L Anion Gap mmol/L BUN (7-17) mg/dL Creatinine (0.52-1.04) mg/dL Est GFR (CKD-EPI)AfAm (>60 ml/min/1.73 sqM) Est GFR (CKD-EPI)NonAf (>60 ml/min/1.73 sqM) Glucose (74-99) mg/dL Plasma Lactic Acid Emmett (0.7-2.0) mmol/L Calcium (8.4-10.2) mg/dL Total Bilirubin (0.2-1.3) mg/dL AST (14-36) U/L ALT (4-34) U/L Alkaline Phosphatase (38-126) U/L Total Protein (6.3-8.2) g/dL Albumin (3.5-5.0) g/dL Lipase (23-300) U/L Urine Color Light Yellow Urine Appearance Clear (Clear) Urine pH 6.5 (5.0-8.0) Ur Specific [place] 1.017 (1.001-1.035) Urine Protein Negative (Negative) Urine Glucose (UA) Negative (Negative) Urine Ketones Negative (Negative) Urine Blood Negative (Negative) Urine Nitrite Negative (Negative) Urine Bilirubin Negative (Negative) Urine Urobilinogen <2.0 (<2.0) mg/dL Ur Leukocyte Esterase Moderate H (Negative) Urine RBC <1 (0-5) /hpf Urine WBC 16 H (0-5) /hpf Urine WBC Clumps Rare H (None) /hpf Ur Squamous Epith Cells 1 (0-4) /hpf Urine Bacteria Rare H (None) /hpf - Radiology Data Radiology results: report reviewed, image reviewed CT abdomen and pelvis with contrast was obtained. Report is reviewed in its entirety. Impression by Dr. Johnston shows colonic diverticulosis without diverticulitis. Hiatal hernia. No change compared to old exam. Normal appendix. Disposition Clinical Impression: Left lower quadrant abdominal pain Disposition: HOME SELF-CARE Condition: Good Instructions (If sedation given, give patient instructions): Abdominal Pain (ED) Additional Instructions: Follow-up with the primary care physician for recheck in 1-2 days. Return immediately for any new, worsening, or concerning symptoms. You will be called with results of your urine test. Prescriptions: Amoxic-Pot Clav 875-125Mg [Augmentin 875-125] 1 tab PO Q12HR #20 tablet Is patient prescribed a controlled substance at d/c from ED?: No Referrals: Cyrus Peck DO [Primary Care Provider] - 1-2 days Time of Disposition: 22:11
[2021-08-09] MEDS ORDERED: SODIUM CHLORIDE 0.9% 1,000 ML IV STA (19:09)
[2021-08-09 19:39] LABS: Basophils # (A) 0.1 k/uL (0-0.2); Basophils % (A) 1 %; Eosinophils # (A) 0.1 k/uL (0-0.7); Eosinophils % (A) 2 %; HCT 47.6 % (34.0-46.0); HGB 15.8 gm/dL (11.4-16.0); Lymphocytes # (A) 2.6 k/uL (1.0-4.8); Lymphocytes % (A) 28 %; MCH 29.6 pg (25.0-35.0); MCHC 33.1 g/dL (31.0-37.0); MCV 89.2 fL (80.0-100.0); Mean Platelet Volume 6.6; Monocytes # (A) 0.4 k/uL (0-1.0); Monocytes % (A) 5 %; Neutrophils % (A) 64 %; Platelet Count 328 k/uL (150-450); RBC 5.33 m/uL (3.80-5.40); RDW 13.1 % (11.5-15.5); WBC 9.5 k/uL (3.8-10.6)
[2021-08-09 19:49] LABS: Calcium 11.2 mg/dL (8.4-10.2); Potassium 4.3 mmol/L (3.5-5.1); Total Bilirubin 0.5 mg/dL (0.2-1.3)
--- NOTE | 2021-08-09 20:44 | CT ---
EXAMINATION TYPE: CT abdomen pelvis w con DATE OF EXAM: 08/09/2021 COMPARISON: 04/03/2021 HISTORY: h/o diverticulitis, pain CT DLP: 1279.7 mGycm Automated exposure control for dose reduction was used. CONTRAST: Performed with IV Contrast, patient injected with 80 mL of Isovue 300. Images obtained from the diaphragm to the floor the pelvis with IV contrast. Lung bases are clear. There is no pleural effusion. Heart size is normal. There is no pericardial eff usion. There is small hiatal hernia. Liver spleen pancreas appear intact. Gallbladder is intact. The bile ducts are not dilated. There is no adrenal mass. Kidneys show satisfactory contrast opacification. There is no hydronephrosi s. Delayed images show normal renal excretion. Ureters are not dilated. There is no retroperitoneal a denopathy. Appendix is posterior and appears normal. Bladder distends smoothly. There is no inguinal hernia. There is no evidence of a pelvic mass. Uterus is anteverted. There is no free fluid in the pe lvis. There are sigmoid diverticula. No sign of diverticulitis. The lumbar vertebra have normal alignment. Disc spaces are fairly normal. There is no compression fra cture. The bony pelvis is intact. The hip joints are intact. There is no mesenteric edema. There is n o ascites or free air. There is no bowel obstruction. IMPRESSION: Colonic diverticulosis without diverticulitis. Hiatal hernia. The No change compared to old exam. Normal appendix.
[2021-08-09 21:54] LABS: Appearance,Urine Clear (Clear); Bacteria,Urine Rare /hpf; Bilirubin,Urine Negative (Negative); Blood,Urine Negative (Negative); Color,Urine Light Yellow; Glucose,Urine (UA) Negative (Negative); Ketones,Urine Negative (Negative); Leukocyte Esterase,Urine Moderate (Negative); Nitrite,Urine Negative (Negative); PH, Urine 6.5 (5.0-8.0); Protein,Urine Negative (Negative); RBC,Urine <1 /hpf (0-5); Specific Gravity,Urine 1.017 (1.001-1.035); Squamous Epithelial Cell,Urine 1 /hpf (0-4); Urobilinogen,Urine <2.0 mg/dL (<2.0); WBC,Urine 16 /hpf (0-5)
[2021-08-09 22:33] VITALS: BP 128/78; PULSE 81; RESP 16; TEMP 98.2
== END 2021-08-09 22:32 | disposition home or self-care (01) ==
LOC: EC 16:36
DX: K57.30 Diverticulosis of large intestine without perforation or abscess without bleeding (principal); I10 Essential (primary) hypertension; E11.9 Type 2 diabetes mellitus without complications; K21.9 Gastro-esophageal reflux disease without esophagitis; E78.5 Hyperlipidemia, unspecified; Z79.899 Other long term (current) drug therapy; Z79.84 Long term (current) use of oral hypoglycemic drugs; Z87.891 Personal history of nicotine dependence; Z88.1 Allergy status to other antibiotic agents; Z88.0 Allergy status to penicillin; Z88.6 Allergy status to analgesic agent
CPT/HCPCS: 36415; 80053; 83605; 83690; 85025; 81001; 87086; 74177; 99284; Q9967

== ENCOUNTER 2021-08-24 16:43 | Emergency (ER) | payer BC ==
[2021-08-24 19:35] LABS: Basophils % (A) 0 %; Eosinophils # (A) 0.1 k/uL (0-0.7); Eosinophils % (A) 1 %; HCT 43.5 % (34.0-46.0); HGB 15.1 gm/dL (11.4-16.0); Lymphocytes # (A) 2.2 k/uL (1.0-4.8); Lymphocytes % (A) 24 %; MCHC 34.7 g/dL (31.0-37.0); MCV 86.6 fL (80.0-100.0); Mean Platelet Volume 6.6; Monocytes # (A) 0.4 k/uL (0-1.0); Monocytes % (A) 5 %; Neutrophils # (A) 6.1 k/uL (1.3-7.7); Neutrophils % (A) 68 %; Platelet Count 270 k/uL (150-450); RBC 5.03 m/uL (3.80-5.40); RDW 13.1 % (11.5-15.5); WBC 8.9 k/uL (3.8-10.6)
[2021-08-24 19:41] LABS: Appearance,Urine Clear (Clear); Bacteria,Urine Rare /hpf; Bilirubin,Urine Negative (Negative); Blood,Urine Negative (Negative); Color,Urine Light Yellow; Glucose,Urine (UA) Negative (Negative); Ketones,Urine Negative (Negative); Leukocyte Esterase,Urine Large (Negative); Nitrite,Urine Negative (Negative); Protein,Urine Negative (Negative); RBC,Urine 1 /hpf (0-5); Specific Gravity,Urine 1.003 (1.001-1.035); Squamous Epithelial Cell,Urine 1 /hpf (0-4); Urobilinogen,Urine <2.0 mg/dL (<2.0); WBC,Urine 23 /hpf (0-5)
[2021-08-24 19:53] LABS: Calcium 10.9 mg/dL (8.4-10.2); Potassium 4.4 mmol/L (3.5-5.1); Total Bilirubin 0.6 mg/dL (0.2-1.3); Total Protein 8.7 g/dL (6.3-8.2)
[2021-08-24] MEDS ORDERED: SODIUM CHLORIDE 0.9% 1,000 ML IV STA (20:34)
--- NOTE | 2021-08-24 21:22 | ED ---
Abdominal Pain HPI - General Chief Complaint: Abdominal Pain Stated Complaint: Abdominal Pain Time Seen by Provider: 08/24/21 20:00 Source: patient Mode of arrival: ambulatory Limitations: no limitations - History of Present Illness Initial Comments: This 61-year-old female presents to the emergency department with left lower quadrant pain that began this morning. Patient states she has a history of diverticulitis and this pain feels similar. Patient states she was here on 08/09/[address] scan, however it did not show that she had div erticulitis. Patient states the pain resolved since that time but it returned today when she woke up. Patient states pain is radiating to her left lower back. She states she is supposed to get a colonoscopy next year. Denies any chest pain, shortness of breath, change in bowel or bladder, vomiting, fever, lightheadedness, blood in stool, or changes in vision. - Related Data Home Medications Medication Instructions Recorded Confirmed amLODIPine [Norvasc] 7.5 mg PO HS 01/30/16 08/09/21 Vitamin C/Biotin [Hair, Skin and 1 tab PO DAILY 05/12/19 08/09/21 Nails Chew] Famotidine [Pepcid] 20 mg PO HS 03/23/20 08/09/21 Rosuvastatin Calcium [Crestor] 5 mg PO HS 03/23/20 08/09/21 Vitamin B Complex 1 cap PO DAILY 03/23/20 08/09/21 Cholecalciferol [Vitamin D3 (25 25 mcg PO DAILY 12/01/20 08/09/21 Mcg = 1000 Iu)] Vitamin E 1,000 unit PO DAILY 12/01/20 08/09/21 Fexofenadine HCl [Olga Allergy] 180 mg PO DAILY PRN 03/07/21 08/09/21 Spironolactone 25 mg PO DAILY 03/07/21 08/09/21 Fluticasone Nasal [place] [Flonase 2 spr EA NOSTRIL DAILY PRN 04/03/21 08/09/21 Nasal [place]] Ascorbic Acid [Vitamin C] 1,000 mg PO DAILY 08/09/21 08/09/21 Vitamin A [Vitamin A (8,000 Units 2,400 mcg PO DAILY 08/09/21 08/09/21 = 2,400 MCG)] Zinc 50 mg PO DAILY 08/09/21 08/09/21 sitaGLIPtin [Januvia] 50 mg PO DAILY 08/09/21 08/09/21 Previous Rx's Medication Instructions Recorded Nitroglycerin Sl Tabs [Nitrostat] 0.4 mg SUBLINGUAL Q5M PRN #25 tab 05/13/19 Amoxic-Pot Clav 875-125Mg 1 tab PO Q12HR #20 tablet 08/09/21 [Augmentin 875-125] Nitrofurantoin Monohyd/M-Cryst 100 mg PO Q12HR #10 cap 08/24/21 [Macrobid] Allergies Allergy/AdvReac Type Severity Reaction Status Date / Time amoxicillin AdvReac Nausea & Verified 08/24/21 18:51 Vomiting ciprofloxacin [From Cipro] AdvReac Nausea & Verified 08/24/21 18:51 Vomiting ciprofloxacin HCl AdvReac Nausea & Verified 08/24/21 18:51 [From Cipro] Vomiting ibuprofen AdvReac tachycardia Verified 08/24/21 18:51 Review of Systems ROS Statement: Those systems with pertinent positive or pertinent negative responses have been documented in the HPI. ROS Other: All systems not noted in ROS Statement are negative. Past Medical History Past Medical History: Diabetes Mellitus, GERD/Reflux, Hyperlipidemia, Hypertension Additional Past Medical History / Comment(s): diverticulosis, vertigo History of Any Multi-Drug Resistant Organisms: None Reported Past Surgical History: Hernia Repair Additional Past Surgical History / Comment(s): LEFT OVARY REMOVAL, Additional Past Anesthesia/Blood Transfusion Reaction / Comment(s): need alot of anesthesia, no blood transfusion Past Psychological History: No Psychological Hx Reported Smoking Status: Former smoker Past Alcohol Use History: Rare Past Drug Use History: None Reported - Past Family History Mother Family Medical History: Cancer, CVA/TIA, Hyperlipidemia, Hypertension, Myocardial Infarction ([place]) Additional Family Medical History / Comment(s): lung cancer Father History Unknown: Yes Family Medical History: Cancer, Mitral Valve Prolapse (MVP) General Exam Limitations: no limitations General appearance: alert, in no apparent distress Head exam: Present: atraumatic, normocephalic, normal inspection ENT exam: Present: normal exam, mucous membranes moist Neck exam: Present: normal inspection, full ROM Respiratory exam: Present: normal lung sounds bilaterally. Absent: respiratory distress, wheezes, rales, rhonchi, stridor Cardiovascular Exam: Present: regular rate, normal rhythm, normal heart sounds. Absent: systolic murmur, diastolic murmur, rubs, gallop, clicks GI/Abdominal exam: Present: soft, normal bowel sounds, other (Patient was able to point where her pain is in her LLQ, but states there is no pain to deep palpation in the area or any of the abdominal quadrants.). Absent: distended, tenderness, guarding, rebound, rigid Extremities exam: Present: normal inspection, full ROM Back exam: Present: normal inspection, full ROM. Absent: tenderness, CVA tenderness (R), CVA tenderness (L), muscle spasm, paraspinal tenderness, vertebral tenderness Neurological exam: Present: alert, oriented X3, CN II-XII intact Psychiatric exam: Present: normal affect, normal mood Skin exam: Present: warm, dry, intact, normal color. Absent: rash Course Vital Signs 08/24/21 08/24/21 18:51 22:50 Temperature 98.3 F 98.0 F Pulse Rate 110 H 76 Respiratory 20 16 Rate Blood Pressure 150/85 126/80 O2 Sat by Pulse 99 99 Oximetry Medical Decision Making - Medical Decision Making This 61 female emergency emergency department with left lower quadrant pain radiating to her right lower back. Patient states she has had diverticulitis in the past and is worried she has been. CT abdomen and pelvis: Negative computed tomography scan abdomen pelvis. There is colonic diverticulosis without diverticulitis. Normal appendix. Bladder distention smoothly. There is no adrenal mass. Ureters are not dilated. Appendix is lateral and appears normal. There are some sigmoid diverticula noted. UA shows large leukocyte esterase, white blood cells 23, bacteria rare Labs all unremarkable. She states she does have a GI doctor. Informed patient to follow up with GI in next 1-2 days for possible colonoscopy or further testing. Patient given a dose of Macrobid here. Patient treated for UTI out patient. Strict return precautions given. Patient sent home in stable condition and verbally agreed to plan. - Lab Data Result diagrams: 08/24/21 19:24 08/24/21 19:24 Lab Results 08/24/21 08/24/21 08/24/21 Range/Units 19:24 19:24 19:24 WBC 8.9 (3.8-10.6) k/uL RBC 5.03 (3.80-5.40) m/uL Hgb 15.1 (11.4-16.0) gm/dL Hct 43.5 (34.0-46.0) % MCV 86.6 (80.0-100.0) fL MCH 30.0 (25.0-35.0) pg MCHC 34.7 (31.0-37.0) g/dL RDW 13.1 (11.5-15.5) % Plt Count 270 (150-450) k/uL MPV 6.6 Neutrophils % 68 % Lymphocytes % 24 % Monocytes % 5 % Eosinophils % 1 % Basophils % 0 % Neutrophils # 6.1 (1.3-7.7) k/uL Lymphocytes # 2.2 (1.0-4.8) k/uL Monocytes # 0.4 (0-1.0) k/uL Eosinophils # 0.1 (0-0.7) k/uL Basophils # 0.0 (0-0.2) k/uL Sodium 138 (137-145) mmol/L Potassium 4.4 (3.5-5.1) mmol/L Chloride 99 (98-107) mmol/L Carbon Dioxide 26 (22-30) mmol/L Anion Gap 13 mmol/L BUN 10 (7-17) mg/dL Creatinine 0.88 (0.52-1.04) mg/dL Est GFR (CKD-EPI)AfAm 83 (>60 ml/min/1.73 sqM) Est GFR (CKD-EPI)NonAf 72 (>60 ml/min/1.73 sqM) Glucose 142 H (74-99) mg/dL Plasma Lactic Acid [place] (0.7-2.0) mmol/L Calcium 10.9 H (8.4-10.2) mg/dL Total Bilirubin 0.6 (0.2-1.3) mg/dL AST 33 (14-36) U/L ALT 34 (4-34) U/L Alkaline Phosphatase 80 (38-126) U/L Total Protein 8.7 H (6.3-8.2) g/dL Albumin 5.0 (3.5-5.0) g/dL Amylase 65 (30-110) U/L Lipase 133 (23-300) U/L Urine Color Light Yellow Urine Appearance Clear (Clear) Urine pH 6.0 (5.0-8.0) Ur Specific [place] 1.003 (1.001-1.035) Urine Protein Negative (Negative) Urine Glucose (UA) Negative (Negative) Urine Ketones Negative (Negative) Urine Blood Negative (Negative) Urine Nitrite Negative (Negative) Urine Bilirubin Negative (Negative) Urine Urobilinogen <2.0 (<2.0) mg/dL Ur Leukocyte Esterase Large H (Negative) Urine RBC 1 (0-5) /hpf Urine WBC 23 H (0-5) /hpf Ur Squamous Epith Cells 1 (0-4) /hpf Urine Bacteria Rare H (None) /hpf 08/24/21 Range/Units 21:03 WBC (3.8-10.6) k/uL RBC (3.80-5.40) m/uL Hgb (11.4-16.0) gm/dL Hct (34.0-46.0) % MCV (80.0-100.0) fL MCH (25.0-35.0) pg MCHC (31.0-37.0) g/dL RDW (11.5-15.5) % Plt Count (150-450) k/uL MPV Neutrophils % % Lymphocytes % % Monocytes % % Eosinophils % % Basophils % % Neutrophils # (1.3-7.7) k/uL Lymphocytes # (1.0-4.8) k/uL Monocytes # (0-1.0) k/uL Eosinophils # (0-0.7) k/uL Basophils # (0-0.2) k/uL Sodium (137-145) mmol/L Potassium (3.5-5.1) mmol/L Chloride (98-107) mmol/L Carbon Dioxide (22-30) mmol/L Anion Gap mmol/L BUN (7-17) mg/dL Creatinine (0.52-1.04) mg/dL Est GFR (CKD-EPI)AfAm (>60 ml/min/1.73 sqM) Est GFR (CKD-EPI)NonAf (>60 ml/min/1.73 sqM) Glucose (74-99) mg/dL Plasma Lactic Acid [place] 1.2 (0.7-2.0) mmol/L Calcium (8.4-10.2) mg/dL Total Bilirubin (0.2-1.3) mg/dL AST (14-36) U/L ALT (4-34) U/L Alkaline Phosphatase (38-126) U/L Total Protein (6.3-8.2) g/dL Albumin (3.5-5.0) g/dL Amylase (30-110) U/L Lipase (23-300) U/L Urine Color Urine Appearance (Clear) Urine pH (5.0-8.0) Ur Specific [place] (1.001-1.035) Urine Protein (Negative) Urine Glucose (UA) (Negative) Urine Ketones (Negative) Urine Blood (Negative) Urine Nitrite (Negative) Urine Bilirubin (Negative) Urine Urobilinogen (<2.0) mg/dL Ur Leukocyte Esterase (Negative) Urine RBC (0-5) /hpf Urine WBC (0-5) /hpf Ur Squamous Epith Cells (0-4) /hpf Urine Bacteria (None) /hpf Disposition Clinical Impression: Abdominal pain, Urinary tract infection Disposition: HOME SELF-CARE Condition: Stable Instructions (If sedation given, give patient instructions): Urinary Tract Infection in Women ([place]), Abdominal Pain (ED) Additional Instructions: Please return to the emergency department with new or worsening symptoms. Follow up with GI next 1-2 days. Take medication for urinary tract infection as directed. Prescriptions: Nitrofurantoin Monohyd/M-Cryst [Macrobid] 100 mg PO Q12HR #10 cap Is patient prescribed a controlled substance at d/c from ED?: No Referrals: Cyrus Peck DO [Primary Care Provider] - 1-2 days Time of Disposition: 22:35
--- NOTE | 2021-08-24 21:58 | CT ---
EXAMINATION TYPE: CT abdomen pelvis w con DATE OF EXAM: 08/24/2021 COMPARISON: 08/09/2021 HISTORY: LT side abdomen pain, radiating into back. Hx diverticulitis. CT DLP: 1273.5 mGycm Automated exposure control for dose reduction was used. CONTRAST: Performed with IV Contrast, patient injected with 100 mL of Isovue 300. Images obtained from the diaphragm to the floor of the pelvis with IV contrast. The lung bases are clear. There is no pleural effusion. There is small hiatal hernia. Heart size is n ormal. There is no pericardial effusion. Liver spleen stomach pancreas and gallbladder appear intact. The bile duct are not dilated. There is no adrenal mass. Kidneys show satisfactory contrast opacification. There is no hydronephrosi s. Ureters are not dilated. There is no retroperitoneal adenopathy. Bladder distends smoothly. There is no free fluid in the pelvis. Uterus is anteverted. There is no evidence of a pelvic mass. There ar e some sigmoid diverticula. There is no sign of diverticulitis. Appendix is lateral and appears maynor l. There is no mesenteric edema. There is no ascites or free air. There is no evidence of a bowel obstru ction. There are multiple diverticula also in the descending colon. The lumbar vertebrae have normal alignment. Posterior elements are intact. There is no compression fr acture. Bony pelvis is intact. Hip joints are intact. IMPRESSION: Negative CT scan abdomen and pelvis. There is colonic diverticulosis without diverticulitis. Normal a ppendix. No change. Hiatal hernia.
[2021-08-24] MEDS ORDERED: NITROFURANTOIN MONOHYD/M-CRYST 100 MG CAP PO STA (22:12)
[2021-08-24 22:53] VITALS: BP 126/80; PULSE 76; RESP 16; TEMP 98
== END 2021-08-24 22:35 | disposition home or self-care (01) ==
LOC: EC 16:43
DX: N39.0 Urinary tract infection, site not specified (principal); K57.30 Diverticulosis of large intestine without perforation or abscess without bleeding; E11.9 Type 2 diabetes mellitus without complications; K21.9 Gastro-esophageal reflux disease without esophagitis; E78.5 Hyperlipidemia, unspecified; I10 Essential (primary) hypertension; Z88.1 Allergy status to other antibiotic agents; Z88.6 Allergy status to analgesic agent; Z79.899 Other long term (current) drug therapy; Z79.84 Long term (current) use of oral hypoglycemic drugs; Z87.891 Personal history of nicotine dependence
CPT/HCPCS: 36415; 80053; 82150; 83605; 83690; 85025; 81001; 87086; 74177; 99284; 96360; Q9967

== ENCOUNTER 2021-09-20 07:26 | Observation (INO) | payer BC ==
[2021-09-20] MEDS ORDERED: SODIUM CHLORIDE 0.9% 500 ML 500 ML IV STA (08:12)
--- NOTE | 2021-09-20 08:43 | ED ---
General Adult HPI - General Chief complaint: Shortness of Breath Stated complaint: SOB/Sweating Time Seen by Provider: 09/20/21 07:30 Source: patient, RN notes reviewed, old records reviewed Mode of arrival: ambulatory Limitations: no limitations - History of Present Illness Initial comments: This is a 61-year-old female presents emergency Department complaining of palpitations sweating episode as well as some shortness of breath. Patient states it happened multiple times morning and currently she is not experiencing any symptoms. Patient states she had no chest pain time. Patient states she got her posterior on Sunday and Sunday she started having body aches and the fever and she continued to have some of those symptoms on Sunday. Patient states all those symptoms have resolved and on her way to work this morning she started getting sweaty and felt mildly short of breath and have some palpitations. Patient denies any fever today. Patient denies any abdominal pain patient has nausea vomiting diarrhea. - Related Data Home Medications Medication Instructions Recorded Confirmed amLODIPine [Norvasc] 7.5 mg PO HS 01/30/16 09/20/21 Vitamin C/Biotin [Hair, Skin and 1 tab PO DAILY 05/12/19 09/20/21 Nails Chew] Famotidine [Pepcid] 20 mg PO BID 03/23/20 09/20/21 Rosuvastatin Calcium [Crestor] 5 mg PO HS 03/23/20 09/20/21 Vitamin B Complex 1 cap PO DAILY 03/23/20 09/20/21 Cholecalciferol [Vitamin D3 (25 25 mcg PO DAILY 12/01/20 09/20/21 Mcg = 1000 Iu)] Vitamin E 1,000 unit PO DAILY 12/01/20 09/20/21 Fexofenadine HCl [Olga Allergy] 180 mg PO DAILY PRN 03/07/21 09/20/21 Spironolactone 25 mg PO DAILY 03/07/21 09/20/21 Fluticasone Nasal [place] [Flonase 2 spr EA NOSTRIL DAILY PRN 04/03/21 09/20/21 Nasal [place]] Ascorbic Acid [Vitamin C] 1,000 mg PO DAILY 08/09/21 09/20/21 Vitamin A [Vitamin A (8,000 Units 2,400 mcg PO DAILY 08/09/21 09/20/21 = 2,400 MCG)] Zinc 50 mg PO DAILY 08/09/21 09/20/21 sitaGLIPtin [Januvia] 50 mg PO W/SUPPER 08/09/21 09/20/21 Previous Rx's Medication Instructions Recorded Nitroglycerin Sl Tabs [Nitrostat] 0.4 mg SUBLINGUAL Q5M PRN #25 tab 05/13/19 Allergies Allergy/AdvReac Type Severity Reaction Status Date / Time amoxicillin AdvReac Nausea & Verified 09/20/21 09:58 Vomiting W/O FOOD ciprofloxacin [From Cipro] AdvReac Nausea & Verified 09/20/21 09:58 Vomiting W/O FOOD ciprofloxacin HCl AdvReac Nausea & Verified 09/20/21 09:58 [From Cipro] Vomiting W/O FOOD ibuprofen AdvReac tachycardia Verified 09/20/21 09:58 Review of Systems ROS Statement: Those systems with pertinent positive or pertinent negative responses have been documented in the HPI. ROS Other: All systems not noted in ROS Statement are negative. Past Medical History Past Medical History: Diabetes Mellitus, GERD/Reflux, Hyperlipidemia, Hypertension Additional Past Medical History / Comment(s): diverticulosis, vertigo History of Any Multi-Drug Resistant Organisms: None Reported Past Surgical History: Hernia Repair Additional Past Surgical History / Comment(s): LEFT OVARY REMOVAL, Additional Past Anesthesia/Blood Transfusion Reaction / Comment(s): need alot of anesthesia, no blood transfusion Past Psychological History: No Psychological Hx Reported Smoking Status: Former smoker Past Alcohol Use History: Rare Past Drug Use History: None Reported - Past Family History Mother Family Medical History: Cancer, CVA/TIA, Hyperlipidemia, Hypertension, Myocardial Infarction ([place]) Additional Family Medical History / Comment(s): lung cancer Father History Unknown: Yes Family Medical History: Cancer, Mitral Valve Prolapse (MVP) General Exam - General Exam Comments Initial Comments: GENERAL: Patient is well-developed and well-nourished. Patient is nontoxic and well- hydrated and is in no acute distress. ENT: Neck is soft and supple. No significant lymphadenopathy is noted. Oropharynx is clear. Moist mucous membranes. Neck has full range of motion without eliciting any pain. EYES: The sclera were anicteric and conjunctiva were pink and moist. Extraocular movements were intact and pupils were equal round and reactive to light. Eyelids were unremarkable. PULMONARY: Unlabored respirations. Good breath sounds bilaterally. No audible rales rhonchi or wheezing was noted. CARDIOVASCULAR: There is a regular rate and rhythm without any murmurs gallops or rubs. ABDOMEN: Soft and nontender with normal bowel sounds. SKIN: Skin is clear with no lesions or rashes and otherwise unremarkable. NEUROLOGIC: Patient is alert and oriented x3. Cranial nerves II through XII are grossly intact. Motor and sensory are also intact. Normal speech, volume and content. Symmetrical smile. MUSCULOSKELETAL: Normal extremities with adequate strength and full range of motion. No lower extremity swelling or edema. No calf tenderness. LYMPHATICS: No significant lymphadenopathy is noted PSYCHIATRIC: Normal psychiatric evaluation. Limitations: no limitations Course Vital Signs 09/20/21 09/20/21 09/20/21 07:27 08:20 08:36 Temperature 97.5 F L Pulse Rate 94 81 Respiratory 18 18 18 Rate Blood Pressure 144/89 131/92 O2 Sat by Pulse 99 96 Oximetry 09/20/21 09/20/21 09/20/21 10:00 10:51 12:09 Temperature Pulse Rate 84 75 71 Respiratory 18 18 18 Rate Blood Pressure 136/82 128/81 O2 Sat by Pulse 99 99 100 Oximetry Medical Decision Making - Medical Decision Making EKG shows normal sinus rhythm at 77 bpm MT interval 262 QRS is 86 QT interval 370 QTC is 418. Patient's EKG shows no ST segment elevation or depression. Chest x-ray shows no acute abnormality. D-dimer was elevated decided to CT of the chest to rule out PE there was no PE. Patient was reevaluated by myself and she stated that earlier she had some chest heaviness which she did not mention before so patient was admitted. I spoke with Dr. Diaz agreed to admission. I wrote admitting orders and I consult to cardiology - Lab Data Result diagrams: 09/20/21 08:30 09/20/21 09:00 Lab Results 09/20/21 09/20/21 09/20/21 Range/Units 08:30 08:30 09:00 WBC 6.7 (3.8-10.6) k/uL RBC 5.04 (3.80-5.40) m/uL Hgb 14.9 (11.4-16.0) gm/dL Hct 42.8 (34.0-46.0) % MCV 85.0 (80.0-100.0) fL MCH 29.5 (25.0-35.0) pg MCHC 34.7 (31.0-37.0) g/dL RDW 12.6 (11.5-15.5) % Plt Count 227 (150-450) k/uL MPV 6.9 Neutrophils % 66 % Lymphocytes % 21 % Monocytes % 8 % Eosinophils % 3 % Basophils % 1 % Neutrophils # 4.4 (1.3-7.7) k/uL Lymphocytes # 1.4 (1.0-4.8) k/uL Monocytes # 0.6 (0-1.0) k/uL Eosinophils # 0.2 (0-0.7) k/uL Basophils # 0.0 (0-0.2) k/uL D-Dimer 0.63 H (<0.60) mg/L FEU Sodium (137-145) mmol/L Potassium (3.5-5.1) mmol/L Chloride (98-107) mmol/L Carbon Dioxide (22-30) mmol/L Anion Gap mmol/L BUN (7-17) mg/dL Creatinine (0.52-1.04) mg/dL Est GFR (CKD-EPI)AfAm (>60 ml/min/1.73 sqM) Est GFR (CKD-EPI)NonAf (>60 ml/min/1.73 sqM) Glucose (74-99) mg/dL Calcium (8.4-10.2) mg/dL Magnesium (1.6-2.3) mg/dL Total Bilirubin (0.2-1.3) mg/dL AST (14-36) U/L ALT (4-34) U/L Alkaline Phosphatase (38-126) U/L Troponin I <0.012 (0.000-0.034) ng/mL Total Protein (6.3-8.2) g/dL Albumin (3.5-5.0) g/dL TSH (0.465-4.680) mIU/L Coronavirus (PCR) (Not Detectd) 09/20/21 09/20/21 Range/Units 09:00 11:20 WBC (3.8-10.6) k/uL RBC (3.80-5.40) m/uL Hgb (11.4-16.0) gm/dL Hct (34.0-46.0) % MCV (80.0-100.0) fL MCH (25.0-35.0) pg MCHC (31.0-37.0) g/dL RDW (11.5-15.5) % Plt Count (150-450) k/uL MPV Neutrophils % % Lymphocytes % % Monocytes % % Eosinophils % % Basophils % % Neutrophils # (1.3-7.7) k/uL Lymphocytes # (1.0-4.8) k/uL Monocytes # (0-1.0) k/uL Eosinophils # (0-0.7) k/uL Basophils # (0-0.2) k/uL D-Dimer (<0.60) mg/L FEU Sodium 134 L (137-145) mmol/L Potassium 3.9 (3.5-5.1) mmol/L Chloride 104 (98-107) mmol/L Carbon Dioxide 20 L (22-30) mmol/L Anion Gap 10 mmol/L BUN 10 (7-17) mg/dL Creatinine 0.73 (0.52-1.04) mg/dL Est GFR (CKD-EPI)AfAm >90 (>60 ml/min/1.73 sqM) Est GFR (CKD-EPI)NonAf >90 (>60 ml/min/1.73 sqM) Glucose 131 H (74-99) mg/dL Calcium 9.3 (8.4-10.2) mg/dL Magnesium 1.8 (1.6-2.3) mg/dL Total Bilirubin 0.6 (0.2-1.3) mg/dL AST 44 H (14-36) U/L ALT 41 H (4-34) U/L Alkaline Phosphatase 80 (38-126) U/L Troponin I (0.000-0.034) ng/mL Total Protein 6.8 (6.3-8.2) g/dL Albumin 3.7 (3.5-5.0) g/dL TSH 1.690 (0.465-4.680) mIU/L Coronavirus (PCR) Not Detected (Not Detectd) Disposition Clinical Impression: Atypical angina Disposition: ADMITTED IP TO THIS [facility] Referrals: Cyrus Peck DO [Primary Care Provider] - 1-2 days Time of Disposition: 13:09
[2021-09-20 08:44] LABS: Basophils % (A) 1 %; Eosinophils # (A) 0.2 k/uL (0-0.7); Eosinophils % (A) 3 %; HCT 42.8 % (34.0-46.0); HGB 14.9 gm/dL (11.4-16.0); Lymphocytes # (A) 1.4 k/uL (1.0-4.8); Lymphocytes % (A) 21 %; MCH 29.5 pg (25.0-35.0); MCHC 34.7 g/dL (31.0-37.0); Mean Platelet Volume 6.9; Monocytes # (A) 0.6 k/uL (0-1.0); Monocytes % (A) 8 %; Neutrophils # (A) 4.4 k/uL (1.3-7.7); Neutrophils % (A) 66 %; Platelet Count 227 k/uL (150-450); RBC 5.04 m/uL (3.80-5.40); RDW 12.6 % (11.5-15.5); WBC 6.7 k/uL (3.8-10.6)
--- NOTE | 2021-09-20 09:14 | XR ---
EXAMINATION TYPE: XR chest 2V DATE OF EXAM: 09/20/2021 COMPARISON: 04/17/2020 HISTORY: Shortness of breath TECHNIQUE: Frontal and lateral views of the chest are obtained. FINDINGS: Scattered senescent parenchymal changes noted. Hyperinflation compatible with COPD. No evidence for infiltrate. No evidence for atelectasis. Heart size is stable. Mediastinal structures are stable and grossly unremarkable. No evidence for hilar prominence. Degenerative changes dorsal spine. IMPRESSION: 1. No evidence for acute pulmonary disease.
[2021-09-20 11:09] LABS: ALT 41 U/L (4-34); AST 44 U/L (14-36); African American GFR (CKD) >90 (>60 ml/min/1.73 sqM); Albumin 3.7 g/dL (3.5-5.0); Alkaline Phosphatase 80 U/L (38-126); Anion Gap 10 mmol/L; Blood Urea Nitrogen 10 mg/dL (7-17); Calcium 9.3 mg/dL (8.4-10.2); Carbon Dioxide 20 mmol/L (22-30); Chloride 104 mmol/L (98-107); Glucose 131 mg/dL (74-99); Magnesium 1.8 mg/dL (1.6-2.3); Non-African American GFR(CKD) >90 (>60 ml/min/1.73 sqM); Potassium 3.9 mmol/L (3.5-5.1); Sodium 134 mmol/L (137-145); Total Bilirubin 0.6 mg/dL (0.2-1.3); Total Protein 6.8 g/dL (6.3-8.2)
--- NOTE | 2021-09-20 11:55 | CT ---
EXAMINATION TYPE: CT chest angio for PE DATE OF EXAM: 09/20/2021 COMPARISON: None HISTORY: Shortness of breath CONTRAST: CT chest with contrast and 3D reconstruction with MIP imaging is performed with IV Contrast, patient injected with 100 mL of Isovue 370. Contrast-enhanced CT of the chest was performed through the course of the pulmonary arteries with lyndsey g and mediastinal window settings submitted. 3D reconstruction with MIP imaging was also performed. PULMONARY ARTERIES: The pulmonary arteries and their major tributaries are patent. I do not see quincy dence for sizable filling defect to suggest pulmonary embolic process. LUNGS: The lungs are clear and free of infiltrate. No evidence for atelectasis. No pulmonary nodule or mass is detected. No pleural effusion. MEDIASTINUM: Thoracic aorta is of normal caliber.. The heart is not enlarged. No evidence for media stinal mass. No mediastinal lymph nodes greater than 1cm. HILAR STRUCTURES: No evidence for mass. No hilar lymph nodes greater than 1 cm. UPPER ABDOMEN: No significant abnormality is seen. IMPRESSION: 1. No evidence for Pulmonary embolism at this time.
[2021-09-20] MEDS ORDERED: NITROGLYCERIN SL TABS 0.4 MG TAB SUBLINGUAL PRN (13:09)
[2021-09-20] MEDS: NITROGLYCERIN OINT 1 INCH/GM PACKET TOPICAL SCH ×2 (18:13→22:42)
[2021-09-20] MEDS ORDERED: LINAGLIPTIN 5 MG TABLET PO SCH (19:15)
[2021-09-20] MEDS ORDERED: LORATADINE 10 MG TAB PO PRN (19:15)
[2021-09-20] MEDS ORDERED: FLUTICASONE 50MCG/SPRAY NASAL 16GM EA NOSTRIL PRN (19:15)
[2021-09-20] MEDS ORDERED: CALCIUM CARBONATE 500 MG CHEWABLE PO PRN (19:16)
[2021-09-20] MEDS ORDERED: MELATONIN 3 MG TABLET PO PRN (19:16)
[2021-09-20] MEDS ORDERED: NALOXONE 0.4 MG/ML 1 ML VIAL IV PRN (19:16)
[2021-09-20] MEDS ORDERED: ACETAMINOPHEN TAB 325 MG TAB PO PRN (19:16)
[2021-09-20] MEDS ORDERED: ONDANSETRON 4 MG/2 ML VIAL IVP PRN (19:16)
[2021-09-20] MEDS ORDERED: ALPRAZolam 0.25 MG TAB PO PRN (19:16)
[2021-09-20] MEDS ORDERED: LACTULOSE 20 GM/30 ML CUP PO PRN (19:16)
[2021-09-20] MEDS ORDERED: ATORVASTATIN 10 MG TAB PO SCH (21:00)
[2021-09-20] MEDS ORDERED: amLODIPine 2.5 MG TAB PO SCH (21:00)
[2021-09-20 22:20] LABS: Glucose,Whole Blood 207 mg/dL (75-99)
[2021-09-20] MEDS: FAMOTIDINE 20 MG TAB PO SCH (22:41)
[2021-09-20] MEDS: INSULIN ASPART (NovoLOG) 100 UNIT/ML VIAL SQ SCH (22:41)
[2021-09-21] MEDS: NITROGLYCERIN OINT 1 INCH/GM PACKET TOPICAL SCH (04:48)
[2021-09-21 07:54] VITALS: BP 128/76; PULSE 71; RESP 18; TEMP 97.7
[2021-09-21 08:25] LABS: Glucose,Whole Blood 141 mg/dL (75-99)
[2021-09-21] MEDS: FAMOTIDINE 20 MG TAB PO SCH (08:57)
[2021-09-21] MEDS ORDERED: VITAMIN A PO SCH (09:00)
[2021-09-21] MEDS ORDERED: VITAMIN E (DL,TOCOPHERYL ACET) 400 UNIT (180 MG) CAP PO SCH (09:00)
[2021-09-21] MEDS ORDERED: NON FORMULARY DRUG (Vitamin B Complex [Vitamin B Complex] 1 EACH Capsule) PO SCH (09:00)
[2021-09-21] MEDS ORDERED: CHOLECALCIFEROL 25 MCG (1000 IU) TABLET PO SCH (09:00)
[2021-09-21] MEDS ORDERED: ZINC SULFATE 220 MG CAP PO SCH (09:00)
[2021-09-21] MEDS ORDERED: ASPIRIN 81 MG PO SCH (09:00)
[2021-09-21] MEDS ORDERED: SPIRONOLACTONE 25 MG TAB PO SCH (09:00)
[2021-09-21] MEDS ORDERED: NON FORMULARY DRUG (Vitamin C/Biotin [Hair, Skin And Nails Chew] 1 EACH Tab.Chew) PO SCH (09:00)
[2021-09-21] MEDS ORDERED: ASPIRIN 325 MG TAB PO SCH (09:00)
[2021-09-21] MEDS ORDERED: ASCORBIC ACID 500 MG TAB PO SCH (09:00)
[2021-09-21] MEDS: INSULIN ASPART (NovoLOG) 100 UNIT/ML VIAL SQ SCH (09:03)
--- NOTE | 2021-09-21 09:16 | P.CRDCN ---
History of Present Illness History of present illness: HISTORY OF PRESENTING ILLNESS This is a pleasant 61-year-old female past medical history significant for type 2 diabetes, hypertension, hyperlipidemia, former nicotine dependence. 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 We have been asked to see in consultation for chest pain. Patient presents to the emergency department with complaints of palpitations and diaphoresis. She states she received her Covid Booster vaccine on Sunday08/17/21, afterwards she had symptoms of body aches, chills, fever of 102F at home, she proceeded to have left arm, left axilla and left shoulder/chest discomfort. The pain was aggravated by movement of the arm and palpation of the left upper chest. It has resolved. Pain is non-exertional, non- radiating. No specific aggravating factors. She denies any shortness of breath, nausea, lightheadedness dizziness, syncope or near syncope. She denies any histo ry of [place], CAD or Stroke. She is a former smoker quit at age 29. Prior to this episode after her vaccineshe denies any recent chest pain, shortness of breath, or palpitations. DIAGNOSTICS EKG reveals sinus rhythm HR 77, T wave inversion in lead III, no significant ST- T wave abnormalities Telemetry tracings indicate sinus rhythm HR 70s-80s. Most recent stress test- stress echo in 2019, negative for reversible ischemia, decreased exercise tolerance Most recent echocardiogram 2019 revealed EF 5560 percent, trace mitral regurgitation, trace tricuspid regurgitation Chest xray no acute cardiopulmonary process. CTA chest was negative for pulmonary embolism Laboratory reviewed, troponin negative 3, COVID-19 negative, CBC unremarkable, d-dimer 0.6, sodium 134, potassium 3.9, BUN 10, serum creatinine 0.7, magnesium 1.8, TSH within normal limits Current home medications include Januvia, amlodipine 7.5 mg nightly, spironolactone 25 mg daily, rosuvastatin 5 mg nightly REVIEW OF SYSTEMS At the time of my exam: CONSTITUTIONAL: Denies fever or chills. CARDIOVASCULAR: Denies chest pain, shortness of breath, orthopnea, PND or palpitations. RESPIRATORY: Denies cough. GASTROINTESTINAL: Denies abdominal pain, diarrhea, constipation, nausea or vomiting. MUSCULOSKELETAL: Denies myalgias. NEUROLOGIC: Denies numbness, tingling, headacbe or weakness. ENDOCRINE: Denies fatigue, weight change, polydipsia or polyurina. GENITOURINARY: Denies burning, hematuria or urgency with micturation. HEMATOLOGIC: Denies history of anemia or bleeding. PHYSICAL EXAMINATION Vitals reviewed CONSTITUTIONAL: No apparent distress. HEENT: Head is normocephalic. Pupils are equal, round. Sclerae anicteric. Mucous membranes of the mouth are moist. No JVD. No carotid bruit. CHEST EXAMINATION: Lungs are clear to auscultation. No chest wall tenderness is noted on palpation or with deep breathing. HEART EXAMINATION: Regular rate and rhythm. S1, S2 heard. No murmurs, gallops or rub. ABDOMEN: Soft, nontender. Positive bowel sounds. EXTREMITIES: 2+ peripheral pulses, no lower extremity edema and no calf tend erness. NEUROLOGIC EXAMINATION: Patient is awake, alert and oriented x3. ASSESSMENT Left chest and left arm pain/soreness, atypical, appears musculoskeletal on exam, acute coronary syndrome has been ruled out. Pain has resolved Symptoms of body aches, chills, diaphoresis, fever after covid booster vaccine History of hypertension Type 2 Diabetes Dyslipidemia PLAN An acute coronary event has been ruled out with no EKG evidence of ischemia and negative cardiac enzymes. We will obtain 2D echocardiogram and doppler study to assess cardiac structure and function, if no acute findings, ok to discharge patient home today Nurse Practitioner note has been reviewed, I agree with a documented findings and plan of care. Patient was seen and examined. Past Medical History Past Medical History: Diabetes Mellitus, GERD/Reflux, Hyperlipidemia, Hypertensi on Additional Past Medical History / Comment(s): diverticulosis, vertigo History of Any Multi-Drug Resistant Organisms: None Reported Past Surgical History: Hernia Repair Additional Past Surgical History / Comment(s): LEFT OVARY REMOVAL, Additional Past Anesthesia/Blood Transfusion Reaction / Comment(s): need alot of anesthesia, no blood transfusion Past Psychological History: No Psychological Hx Reported Smoking Status: Former smoker Past Alcohol Use History: Rare Past Drug Use History: None Reported - Past Family History Mother Family Medical History: Cancer, CVA/TIA, Hyperlipidemia, Hypertension, Myocardial Infarction ([place]) Additional Family Medical History / Comment(s): lung cancer Father History Unknown: Yes Family Medical History: Cancer, Mitral Valve Prolapse (MVP) Medications and Allergies Home Medications Medication Instructions Recorded Confirmed Type amLODIPine [Norvasc] 7.5 mg PO HS 01/30/16 09/20/21 History Vitamin C/Biotin [Hair, Skin and 1 tab PO DAILY 05/12/19 09/20/21 History Nails Chew] Nitroglycerin Sl Tabs [Nitrostat] 0.4 mg SUBLINGUAL Q5M PRN #25 tab 05/13/19 09/20/21 Rx Famotidine [Pepcid] 20 mg PO BID 03/23/20 09/20/21 History Rosuvastatin Calcium [Crestor] 5 mg PO HS 03/23/20 09/20/21 History Vitamin B Complex 1 cap PO DAILY 03/23/20 09/20/21 History Cholecalciferol [Vitamin D3 (25 25 mcg PO DAILY 12/01/20 09/20/21 History Mcg = 1000 Iu)] Vitamin E 1,000 unit PO DAILY 12/01/20 09/20/21 History Fexofenadine HCl [Olga Allergy] 180 mg PO DAILY PRN 03/07/21 09/20/21 History Spironolactone 25 mg PO DAILY 03/07/21 09/20/21 History Fluticasone Nasal [place] [Flonase 2 spr EA NOSTRIL DAILY PRN 04/03/21 09/20/21 Hi story Nasal [place]] Ascorbic Acid [Vitamin C] 1,000 mg PO DAILY 08/09/21 09/20/21 History Vitamin A [Vitamin A (8,000 Units 2,400 mcg PO DAILY 08/09/21 09/20/21 History = 2,400 MCG)] Zinc 50 mg PO DAILY 08/09/21 09/20/21 History sitaGLIPtin [Januvia] 50 mg PO W/SUPPER 08/09/21 09/20/21 History Allergies Allergy/AdvReac Type Severity Reaction Status Date / Time adhesive tape AdvReac Rash/Hives Verified 09/21/21 01:16 amoxicillin AdvReac Nausea & Verified 09/20/21 09:58 Vomiting W/O FOOD ciprofloxacin [From Cipro] AdvReac Nausea & Verified 09/20/21 09:58 Vomiting W/O FOOD ciprofloxacin HCl AdvReac Nausea & Verified 09/20/21 09:58 [From Cipro] Vomiting W/O FOOD ibuprofen AdvReac tachycardia Verified 09/20/21 09:58 Physical Exam Vitals: Vital Signs Temp Pulse Resp BP Pulse Ox 09/20/21 13:19 80 18 127/85 98 09/20/21 12:09 71 18 128/81 100 09/20/21 10:51 75 18 136/82 99 09/20/21 10:00 84 18 99 09/20/21 08:36 81 18 131/92 96 09/20/21 08:20 18 09/20/21 07:27 97.5 F L 94 18 144/89 99 Intake and Output 09/19/21 09/20/21 09/20/21 22:59 06:59 14:59 Other: Weight 91.626 kg Results 09/20/21 08:30 09/20/21 09:00 Cardiac Enzymes 09/20/21 09/20/21 Range/Units 09:00 09:00 AST 44 H (14-36) U/L Troponin I <0.012 (0.000-0.034) ng/mL CBC 09/20/21 Range/Units 08:30 WBC 6.7 (3.8-10.6) k/uL RBC 5.04 (3.80-5.40) m/uL Hgb 14.9 (11.4-16.0) gm/dL Hct 42.8 (34.0-46.0) % Plt Count 227 (150-450) k/uL Comprehensive Metabolic Panel 09/20/21 Range/Units 09:00 Sodium 134 L (137-145) mmol/L Potassium 3.9 (3.5-5.1) mmol/L Chloride 104 (98-107) mmol/L Carbon Dioxide 20 L (22-30) mmol/L BUN 10 (7-17) mg/dL Creatinine 0.73 (0.52-1.04) mg/dL Glucose 131 H (74-99) mg/dL Calcium 9.3 (8.4-10.2) mg/dL AST 44 H (14-36) U/L ALT 41 H (4-34) U/L Alkaline Phosphatase 80 (38-126) U/L Total Protein 6.8 (6.3-8.2) g/dL Albumin 3.7 (3.5-5.0) g/dL Current Medications Generic Name Dose Route Start Last Admin Trade Name Freq PRN Reason Stop Dose Admin Aspirin 325 mg 09/21/21 09:00 Aspirin 325 Mg Tab PO DAILY AZALIA Nitroglycerin 0.4 mg 09/20/21 13:09 Nitroglycerin Sl Tabs 0.4 Mg Tab SUBLINGUAL Q5M PRN Chest Pain Nitroglycerin 1 inch 09/20/21 18:00 Nitroglycerin Oint 1 Inch/Gm Packet TOPICAL Q6HR [facility] Intake and Output 09/19/21 09/20/21 09/20/21 22:59 06:59 14:59 Other: Weight 91.626 kg Patient Weight 09/21/21 06:59 Weight 91.626 kg 09/20/21 08:30 09/20/21 09:00
[2021-09-21 09:27] LABS: Chol/HDL Ratio 3.37 Ratio; LDL Cholesterol,Calculated 101.3 mg/dL (0.0-131.0)
--- NOTE | 2021-09-21 10:59 | ECHOF ---
Referral Reason:LV function MEASUREMENTS -------- HEIGHT: 175.3 cm WEIGHT: 91.6 kg BP: RVIDd: 3.7 cm (< 3.3) IVSd: 1.1 cm (0.6 - 1.1) LVIDd: 4.4 cm (3.9 - 5.3) LVPWd: 1.2 cm (0.6 - 1.1) IVSs: 1.6 cm LVIDs: 2.9 cm LVPWs: 1.9 cm LAESV Index (A-L): 17.88 ml/m Ao Diam: 3.1 cm (2.0 - 3.7) AV Cusp: 1.9 cm (1.5 - 2.6) LA Diam: 2.6 cm (2.7 - 3.8) MV EXCURSION: 13.171 mm (> 18.000) MV EF SLOPE: 111 mm/s (70 - 150) EPSS: 0.5 cm MV E Ricky: 0.76 m/s MV DecT: 180 ms MV A Ricky: 1.02 m/s MV E/A Ratio: 0.75 RAP: 5.00 mmHg RVSP: 15.58 mmHg FINDINGS -------- Sinus rhythm. This was a technically adequate study. The left ventricular size is normal. There is borderline concentric left ventricular hypertrophy. Overall left ventricular systolic function is normal with, an EF between 55 - 60 %. The diastolic filling pattern is normal for the age of the patient 8.60. The right ventricle is mildly enlarged. Normal LA size by volume 22+/-6 ml/m2. The right atrial size is normal. Interatrial and interventricular septum intact. The aortic valve is trileaflet and appears structurally normal. There is no evidence of aortic regu rgitation. There is no evidence of aortic stenosis. No mitral regurgitation. Mild tricuspid regurgitation present. There is no evidence of pulmonary hypertension. The right v entricular systolic pressure, as measured by Doppler, is 15.58mmHg. There is no pulmonic regurgitation present. The aortic root size is normal. IVC Not well visulized. There is no pericardial effusion. CONCLUSIONS -------- 1. The left ventricular size is normal. 2. There is borderline concentric left ventricular hypertrophy. 3. Overall left ventricular systolic function is normal with, an EF between 55 - 60 %. 4. The diastolic filling pattern is normal for the age of the patient 8.60 5. The right ventricle is mildly enlarged. 6. Mild tricuspid regurgitation present. CORPORATE REAL ESTATE MANAGER: Destiny Avila RDCS
--- NOTE | 2021-09-21 21:41 | P.HPIM ---
History of Present Illness H&P Date: 09/20/21 Chief Complaint: Unwell This is a very pleasant 61-year-old patient, follows with Dr. Peck. Chronic stable medical conditions include diabetes, GERD, hypertension, hyperlipidemia, colonic diverticulosis, left ovary removed. I saw the patient in the ER. Patient had a COVID-19 booster shot on Sunday that is 3 days ago. Following day on Sunday patient just felt unwell. Subsequently she developed a fever to 101 bodyaches headache sleepy. Sunday she is feeling okay. On Sunday patient broke out in a sweat. Increase heart rate. Left arm felt a bit heavy. Very minimal shortness of breath. No cough no urine symptoms. Decided to come in. Her diet. No chest pain. Review of systems: GEN.: Tired, fever decreased appetite EYES: None HEENT: None NECK: None RESPIRATORY: Mildly short of breath CARDIOVASCULAR: None GASTROINTESTINAL: None GENITOURINARY: None MUSCULOSKELETAL: None LYMPHATICS: None HEMATOLOGICAL: None PSYCHIATRY: None NEUROLOGICAL: None Past medical history to include: Diabetes, GERD, hyperlipidemia, hypertension, diverticulosis, but ago, left ovary removed Social history: Does not smoke. Alcohol occasionally. Lives with her sister and children. Employed Family history: Stroke, hyperlipidemia, hypertension, CT, lung cancer Physical examination: VITAL SIGNS: 97.5, 94, 18, 144/89, 99% room air GENERAL: BMI 29.9, reclining bed, awake, comfortable. EYES: Pupils equal. Conjunctiva normal. HEENT: External appearance of nose and ears normal, oral cavity grossly normal. NECK: JVD not raised; masses not palpable. HEART: First and second heart sounds are normal; no edema. LUNGS: Respiratory rate normal; clear to auscultation. ABDOMEN: Soft, nontender, liver spleen not palpable, no masses palpable. PSYCH: Alert and oriented x3; mood and affect normal. MUSCULOSKELETAL:No Clubbing/cyanosis;muscles-grossly intact NEUROLOGICAL: Cranial nerves grossly intact; no facial asymmetry, power and sensation grossly intact. LYMPHATICS: No lymph nodes palpable in the axilla and neck INVESTIGATIONS, reviewed in the clinical context: White count 6.7 hemoglobin 14.9 platelets 227 d-dimer 0.63 sodium 134 potassium 3.9 creatinine 0.93 Troponin I less than 0.0123 TSH 1.6 Coronavirus [PCR]: Not detected Chest x-ray film personally reviewed by me-no infiltrate EKG tracing personally reviewed by me-normal sinus rhythm. Rate 77 Chest CTA: Negative for PE Assessment and plan: -Possible atypical the less likely cardiac presentation. Slightly short of breath. Tired. Cardiac risk factors include diabetes, hypertension, hyperlipidemia Telemetry. Troponin is negative. Cardiology consulted. -Most likely patient had a delayed reaction to COVID booster shot. Symptomatically treatment. Tylenol when necessary -Diabetes mellitus type 2 Januvia, follow Accu-Cheks with sliding scale -Essential hypertension Norvasc 7.5 mg daily at bedtime -Hyperlipidemia Crestor 5 mg daily at bedtime Resume home medications. Follow Accu-Cheks. Telemetry. Cardiology consulted. Care was discussed with the patient. Most likely delayed COVID-19 booster reaction. Past Medical History Past Medical History: Diabetes Mellitus, GERD/Reflux, Hyperlipidemia, Hypertension Additional Past Medical History / Comment(s): diverticulosis, vertigo History of Any Multi-Drug Resistant Organisms: None Reported Past Surgical History: Hernia Repair Additional Past Surgical History / Comment(s): LEFT OVARY REMOVAL, Additional Past Anesthesia/Blood Transfusion Reaction / Comment(s): need alot of anesthesia, no blood transfusion Past Psychological History: No Psychological Hx Reported Smoking Status: Former smoker Past Alcohol Use History: Rare Past Drug Use History: None Reported - Past Family History Mother Family Medical History: Cancer, CVA/TIA, Hyperlipidemia, Hypertension, Myocardial Infarction (CT) Additional Family Medical History / Comment(s): lung cancer Father History Unknown: Yes Family Medical History: Cancer, Mitral Valve Prolapse (MVP) Medications and Allergies Home Medications Medication Instructions Recorded Confirmed Type amLODIPine [Norvasc] 7.5 mg PO HS 01/30/16 09/20/21 History Vitamin C/Biotin [Hair, Skin and 1 tab PO DAILY 05/12/19 09/20/21 History Nails Chew] Nitroglycerin Sl Tabs [Nitrostat] 0.4 mg SUBLINGUAL Q5M PRN #25 tab 05/13/19 09/20/21 Rx Famotidine [Pepcid] 20 mg PO BID 03/23/20 09/20/21 History Rosuvastatin Calcium [Crestor] 5 mg PO HS 03/23/20 09/20/21 History Vitamin B Complex 1 cap PO DAILY 03/23/20 09/20/21 History Cholecalciferol [Vitamin D3 (25 25 mcg PO DAILY 12/01/20 09/20/21 History Mcg = 1000 Iu)] Vitamin E 1,000 unit PO DAILY 12/01/20 09/20/21 History Fexofenadine HCl [Olga Allergy] 180 mg PO DAILY PRN 03/07/21 09/20/21 History Spironolactone 25 mg PO DAILY 03/07/21 09/20/21 History Fluticasone Nasal [place] [Flonase 2 spr EA NOSTRIL DAILY PRN 04/03/21 09/20/21 History Nasal [place]] Ascorbic Acid [Vitamin C] 1,000 mg PO DAILY 08/09/21 09/20/21 History Vitamin A [Vitamin A (8,000 Units 2,400 mcg PO DAILY 08/09/21 09/20/21 History = 2,400 MCG)] Zinc 50 mg PO DAILY 08/09/21 09/20/21 History sitaGLIPtin [Januvia] 50 mg PO W/SUPPER 08/09/21 09/20/21 History Aspirin 81 mg PO DAILY 09/21/21 Rx Allergies Allergy/AdvReac Type Severity Reaction Status Date / Time adhesive tape AdvReac Rash/Hives Verified 09/21/21 01:16 amoxicillin AdvReac Nausea & Verified 09/20/21 09:58 Vomiting W/O FOOD ciprofloxacin [From Cipro] AdvReac Nausea & Verified 09/20/21 09:58 Vomiting W/O FOOD ciprofloxacin HCl AdvReac Nausea & Verified 09/20/21 09:58 [From Cipro] Vomiting W/O FOOD ibuprofen AdvReac tachycardia Verified 09/20/21 09:58 Physical Exam Vitals: Vital Signs Temp Pulse Resp BP Pulse Ox 09/20/21 18:13 79 18 146/90 99 09/20/21 17:00 98.5 F 80 18 145/95 98 09/20/21 14:44 78 18 98 09/20/21 13:19 80 18 127/85 98 09/20/21 12:09 71 18 128/81 100 09/20/21 10:51 75 18 136/82 99 09/20/21 10:00 84 18 99 09/20/21 08:36 81 18 131/92 96 09/20/21 08:20 18 09/20/21 07:27 97.5 F L 94 18 144/89 99 Intake and Output 09/20/21 09/20/21 09/20/21 06:59 14:59 22:59 Other: Weight 91.626 kg Results CBC & Chem 7: 09/20/21 08:30 09/20/21 09:00 Labs: Abnormal Lab Results - Last 24 Hours (Table) 09/20/21 09/20/21 Range/Units 08:30 09:00 D-Dimer 0.63 H (<0.60) mg/L FEU Sodium 134 L (137-145) mmol/L Carbon Dioxide 20 L (22-30) mmol/L Glucose 131 H (74-99) mg/dL AST 44 H (14-36) U/L ALT 41 H (4-34) U/L
--- NOTE | 2021-09-21 21:44 | P.DS ---
Providers Date of admission: 09/20/21 13:09 Expected date of discharge: 09/21/21 Attending physician: Zak Diaz Consults: 09/20/21 13:09 Consult Physician Urgent Consulting Provider: [facility] Consult Reason/Comments: Atypical angina Do you want consulting provider notified?: Yes Primary care physician: [facility] Course: Chief Complaint: Unwell This is a very pleasant 61-year-old patient, follows with Dr. Peck. Chronic stable medical conditions include diabetes, GERD, hypertension, hyperlipidemia, colonic diverticulosis, left ovary removed. I saw the patient in the ER. Patient had a COVID-19 booster shot on Sunday that is 3 days ago. Following day on Sunday patient just felt unwell. Subsequently she developed a fever to 101 bodyaches headache sleepy. Sunday she is feeling okay. On Sunday patient broke out in a sweat. Increase heart rate. Left arm felt a bit heavy. Very minimal shortness of breath. No cough no urine symptoms. Decided to come in. Her diet. No chest pain. September 21: Feeling well. No new symptoms. 2-D echocardiogram unremarkable. Cleared by cardiology. Consultation: Dr. Merlin Patel from cardiology Past medical history to include: Diabetes, GERD, hyperlipidemia, hypertension, diverticulosis, but ago, left ovary removed Social history: Does not smoke. Alcohol occasionally. Lives with her sister and children. Employed Family history: Stroke, hyperlipidemia, hypertension, [place], lung cancer Physical examination: VITAL SIGNS: 97.5, 75, 18, 1 3682, 99% room air GENERAL: Up in a chair, awake, comfortable. EYES: Pupils equal. Conjunctiva normal. HEENT: External appearance of nose and ears normal, oral cavity grossly normal. NECK: JVD not raised; masses not palpable. HEART: First and second heart sounds are normal; no edema. LUNGS: Respiratory rate normal; clear to auscultation. ABDOMEN: Soft, nontender, liver spleen not palpable, no masses palpable. PSYCH: Alert and oriented x3; mood and affect normal. MUSCULOSKELETAL:No Clubbing/cyanosis;muscles-grossly intact INVESTIGATIONS, reviewed in the clinical context: 2-D echocardiogram: EF 55-60% White count 6.7 hemoglobin 14.9 platelets 227 d-dimer 0.63 sodium 134 potassium 3.9 creatinine 0.93 Troponin I less than 0.0123 TSH 1.6 Coronavirus [PCR]: Not detected Chest x-ray film personally reviewed by me-no infiltrate EKG tracing personally reviewed by me-normal sinus rhythm. Rate 77 Chest CTA: Negative for PE Assessment and plan: -Most likely patient had a delayed reaction to COVID booster shot. Symptomatically treatment. Tylenol when necessary -Diabetes mellitus type 2 Januvia, follow Accu-Cheks with sliding scale -Essential hypertension Norvasc 7.5 mg daily at bedtime -Hyperlipidemia Crestor 5 mg daily at bedtime Disposition: Home Plan - Discharge Summary Discharge Rx Participant: No New Discharge Prescriptions: New Aspirin 81 mg PO DAILY Continue amLODIPine [Norvasc] 7.5 mg PO HS Vitamin C/Biotin [Hair, Skin and Nails Chew] 1 tab PO DAILY Nitroglycerin Sl Tabs [Nitrostat] 0.4 mg SUBLINGUAL Q5M PRN #25 tab PRN Reason: Chest Pain Vitamin B Complex 1 cap PO DAILY Rosuvastatin Calcium [Crestor] 5 mg PO HS Famotidine [Pepcid] 20 mg PO BID Cholecalciferol [Vitamin D3 (25 Mcg = 1000 Iu)] 25 mcg PO DAILY Spironolactone 25 mg PO DAILY Fexofenadine HCl [Olga Allergy] 180 mg PO DAILY PRN PRN Reason: Allergy Symptoms sitaGLIPtin [Januvia] 50 mg PO W/SUPPER Zinc 50 mg PO DAILY Vitamin E 1,000 unit PO DAILY Fluticasone Nasal [place] [Flonase Nasal [place]] 2 spr EA NOSTRIL DAILY PRN PRN Reason: Allergy Symptoms Ascorbic Acid [Vitamin C] 1,000 mg PO DAILY Vitamin A [Vitamin A (8,000 Units = 2,400 MCG)] 2,400 mcg PO DAILY Discharge Medication List amLODIPine [Norvasc] 7.5 mg PO HS 01/30/16 [History] Vitamin C/Biotin [Hair, Skin and Nails Chew] 1 tab PO DAILY 05/12/19 [History] Nitroglycerin Sl Tabs [Nitrostat] 0.4 mg SUBLINGUAL Q5M PRN #25 tab 05/13/19 [Rx] Famotidine [Pepcid] 20 mg PO BID 03/23/20 [History] Rosuvastatin Calcium [Crestor] 5 mg PO HS 03/23/20 [History] Vitamin B Complex 1 cap PO DAILY 03/23/20 [History] Cholecalciferol [Vitamin D3 (25 Mcg = 1000 Iu)] 25 mcg PO DAILY 12/01/20 [History] Vitamin E 1,000 unit PO DAILY 12/01/20 [History] Fexofenadine HCl [Olga Allergy] 180 mg PO DAILY PRN 03/07/21 [History] Spironolactone 25 mg PO DAILY 03/07/21 [History] Fluticasone Nasal [place] [Flonase Nasal [place]] 2 spr EA NOSTRIL DAILY PRN 04/03/21 [History] Ascorbic Acid [Vitamin C] 1,000 mg PO DAILY 08/09/21 [History] Vitamin A [Vitamin A (8,000 Units = 2,400 MCG)] 2,400 mcg PO DAILY 08/09/21 [History] Zinc 50 mg PO DAILY 08/09/21 [History] sitaGLIPtin [Januvia] 50 mg PO W/SUPPER 08/09/21 [History] Aspirin 81 mg PO DAILY 09/21/21 [Rx] Follow up Appointment(s)/Referral(s): Cyrus Peck DO [Primary Care Provider] - 1-2 days Aries Patel MD [STAFF PHYSICIAN] - 3 Weeks Patient Instructions/Handouts: Chest Pain (DC) Activity/Diet/Wound Care/Special Instructions: activity as tolerated heart healthy diet Discharge Disposition: HOME SELF-CARE
== END 2021-09-21 12:24 | disposition home or self-care (01) ==
LOC: EC 07:26 → 1SOBS 13:09 → 6NMEDSUR 15:58
PROVIDERS: ADMIT Hospitalist; ATTEND Hospitalist
DX: R06.02 Shortness of breath (principal); R61 Generalized hyperhidrosis; E78.5 Hyperlipidemia, unspecified; E11.9 Type 2 diabetes mellitus without complications; I10 Essential (primary) hypertension; K57.30 Diverticulosis of large intestine without perforation or abscess without bleeding; R07.89 Other chest pain; R00.2 Palpitations; M79.602 Pain in left arm; R42 Dizziness and giddiness; Z20.822 Contact with and (suspected) exposure to COVID-19; K21.9 Gastro-esophageal reflux disease without esophagitis; R79.89 Other specified abnormal findings of blood chemistry; R53.83 Other fatigue; Z79.899 Other long term (current) drug therapy; Z79.84 Long term (current) use of oral hypoglycemic drugs; Z88.0 Allergy status to penicillin; Z88.1 Allergy status to other antibiotic agents; Z88.6 Allergy status to analgesic agent; Z87.891 Personal history of nicotine dependence; Z90.721 Acquired absence of ovaries, unilateral; Z82.49 Family history of ischemic heart disease and other diseases of the circulatory system; Z82.3 Family history of stroke; Z80.1 Family history of malignant neoplasm of trachea, bronchus and lung
CPT/HCPCS: 99285; 36415; 93005; 93306; 85379; 80061; 80053; 83735; 84443; 84484; 85025; 87635; 71046; 71275; G0378 ×2; Q9967; 96360

== ENCOUNTER 2022-01-25 02:15 | Emergency (ER) | payer BC ==
[2022-01-25 02:22] VITALS: TEMP 97.7
[2022-01-25 02:51] LABS: Basophils # (A) 0.1 k/uL (0-0.2); Basophils % (A) 1 %; Eosinophils # (A) 0.1 k/uL (0-0.7); Eosinophils % (A) 2 %; HCT 44.4 % (34.0-46.0); HGB 14.7 gm/dL (11.4-16.0); Lymphocytes # (A) 2.4 k/uL (1.0-4.8); Lymphocytes % (A) 33 %; MCH 28.5 pg (25.0-35.0); MCV 86.2 fL (80.0-100.0); Mean Platelet Volume 6.9; Monocytes # (A) 0.4 k/uL (0-1.0); Monocytes % (A) 6 %; Neutrophils # (A) 4.2 k/uL (1.3-7.7); Neutrophils % (A) 57 %; Platelet Count 264 k/uL (150-450); RBC 5.15 m/uL (3.80-5.40); RDW 12.6 % (11.5-15.5); WBC 7.3 k/uL (3.8-10.6)
[2022-01-25 03:11] LABS: Albumin 4.5 g/dL (3.5-5.0); Magnesium 2.1 mg/dL (1.6-2.3); Total Bilirubin 0.4 mg/dL (0.2-1.3); Total Protein 7.6 g/dL (6.3-8.2)
[2022-01-25 03:22] LABS: INR 0.9 (<1.2); Partial Thromboplastin Time 25.8 sec (22.0-30.0); Prothrombin Time 9.8 sec (9.0-12.0)
[2022-01-25] MEDS ORDERED: MECLIZINE 12.5 MG TAB PO STA (06:32)
--- NOTE | 2022-01-25 07:34 | ED ---
Dizziness HPI - General Chief Complaint: Dizziness Stated Complaint: vertigo Time Seen by Provider: 01/25/22 06:14 Source: patient, RN notes reviewed Mode of arrival: ambulatory Limitations: no limitations - History of Present Illness Initial Comments: This a 61-year-old female presents emergency Department chief complaint of dizziness. Patient states she awoke to go to the bathroom states that she is very dizzy. Patient states it was worse with any movement. Patient states symptoms decided but returned again. Patient states at this time she presented emergency department. She did have one more episode in the waiting room. She states she'll has mild dizziness at this time which is resolved with not moving. She does complain that she's had some increasing congestion and ALLERGIES. Patient denies chest pain shortness breath vomiting she did have mild nausea. Patient has a focal weakness. - Related Data Home Medications Medication Instructions Recorded Confirmed amLODIPine [Norvasc] 7.5 mg PO HS 01/30/16 09/20/21 Vitamin C/Biotin [Hair, Skin and 1 tab PO DAILY 05/12/19 09/20/21 Nails Chew] Famotidine [Pepcid] 20 mg PO BID 03/23/20 09/20/21 Rosuvastatin Calcium [Crestor] 5 mg PO HS 03/23/20 09/20/21 Vitamin B Complex 1 cap PO DAILY 03/23/20 09/20/21 Cholecalciferol [Vitamin D3 (25 25 mcg PO DAILY 12/01/20 09/20/21 Mcg = 1000 Iu)] Vitamin E 1,000 unit PO DAILY 12/01/20 09/20/21 Fexofenadine HCl [Olga Allergy] 180 mg PO DAILY PRN 03/07/21 09/20/21 Spironolactone 25 mg PO DAILY 03/07/21 09/20/21 Fluticasone Nasal [place] [Flonase 2 spr EA NOSTRIL DAILY PRN 04/03/21 09/20/21 Nasal [place]] Ascorbic Acid [Vitamin C] 1,000 mg PO DAILY 08/09/21 09/20/21 Vitamin A [Vitamin A (8,000 Units 2,400 mcg PO DAILY 08/09/21 09/20/21 = 2,400 MCG)] Zinc 50 mg PO DAILY 08/09/21 09/20/21 sitaGLIPtin [Januvia] 50 mg PO W/SUPPER 08/09/21 09/20/21 Previous Rx's Medication Instructions Recorded Nitroglycerin Sl Tabs [Nitrostat] 0.4 mg SUBLINGUAL Q5M PRN #25 tab 05/13/19 Aspirin 81 mg PO DAILY 09/21/21 Meclizine [Antivert] 25 mg PO TID PRN #15 tab 01/25/22 Allergies Allergy/AdvReac Type Severity Reaction Status Date / Time adhesive tape AdvReac Rash/Hives Verified 09/21/21 01:16 amoxicillin AdvReac Nausea & Verified 09/20/21 09:58 Vomiting W/O FOOD ciprofloxacin [From Cipro] AdvReac Nausea & Verified 09/20/21 09:58 Vomiting W/O FOOD ciprofloxacin HCl AdvReac Nausea & Verified 09/20/21 09:58 [From Cipro] Vomiting W/O FOOD ibuprofen AdvReac tachycardia Verified 09/20/21 09:58 Review of Systems ROS Statement: Those systems with pertinent positive or pertinent negative responses have been documented in the HPI. ROS Other: All systems not noted in ROS Statement are negative. Past Medical History Past Medical History: Diabetes Mellitus, GERD/Reflux, Hyperlipidemia, Hypertension Additional Past Medical History / Comment(s): diverticulosis, vertigo History of Any Multi-Drug Resistant Organisms: None Reported Past Surgical History: Hernia Repair Additional Past Surgical History / Comment(s): LEFT OVARY REMOVAL, Additional Past Anesthesia/Blood Transfusion Reaction / Comment(s): need alot of anesthesia, no blood transfusion Past Psychological History: No Psychological Hx Reported Smoking Status: Former smoker Past Alcohol Use History: Rare Past Drug Use History: None Reported - Past Family History Mother Family Medical History: Cancer, CVA/TIA, Hyperlipidemia, Hypertension, Myocardial Infarction ([place]) Additional Family Medical History / Comment(s): lung cancer Father History Unknown: Yes Family Medical History: Cancer, Mitral Valve Prolapse (MVP) Additional Family Medical History / Comment(s): leukemia General Exam Limitations: no limitations General appearance: alert, in no apparent distress Head exam: Present: atraumatic, normocephalic, normal inspection Eye exam: Present: normal appearance, PERRL, EOMI. Absent: scleral icterus, conjunctival injection, periorbital swelling ENT exam: Present: normal exam, normal oropharynx, mucous membranes moist Neck exam: Present: normal inspection, full ROM. Absent: tenderness, meningismus, lymphadenopathy Respiratory exam: Present: normal lung sounds bilaterally. Absent: respiratory distress, wheezes, rales, rhonchi, stridor Cardiovascular Exam: Present: regular rate, normal rhythm, normal heart sounds. Absent: systolic murmur, diastolic murmur, rubs, gallop, clicks GI/Abdominal exam: Present: soft, normal bowel sounds. Absent: distended, tenderness, guarding, rebound, rigid Neurological exam: Present: alert, oriented X3, CN II-XII intact, reflexes normal. Absent: motor sensory deficit Skin exam: Present: warm, dry, intact, normal color. Absent: rash Course Vital Signs 01/25/22 02:18 Temperature 97.7 F Pulse Rate 92 Respiratory 16 Rate Blood Pressure 142/88 O2 Sat by Pulse 98 Oximetry Medical Decision Making - Medical Decision Making 7-year-old female presents emergency from for episode of dizziness. Patient's symptoms are worse with movement. Patient is neurologically intact CT, labs reveal any acute process. Patient had increasing congestion. Patient discharged with Antivert and return parameters discussed. - Lab Data Result diagrams: 01/25/22 02:25 01/25/22 02:25 Lab Results 01/25/22 01/25/22 01/25/22 Range/Units 02:25 02:25 02:25 WBC 7.3 (3.8-10.6) k/uL RBC 5.15 (3.80-5.40) m/uL Hgb 14.7 (11.4-16.0) gm/dL Hct 44.4 (34.0-46.0) % MCV 86.2 (80.0-100.0) fL MCH 28.5 (25.0-35.0) pg MCHC 33.0 (31.0-37.0) g/dL RDW 12.6 (11.5-15.5) % Plt Count 264 (150-450) k/uL MPV 6.9 Neutrophils % 57 % Lymphocytes % 33 % Monocytes % 6 % Eosinophils % 2 % Basophils % 1 % Neutrophils # 4.2 (1.3-7.7) k/uL Lymphocytes # 2.4 (1.0-4.8) k/uL Monocytes # 0.4 (0-1.0) k/uL Eosinophils # 0.1 (0-0.7) k/uL Basophils # 0.1 (0-0.2) k/uL PT 9.8 (9.0-12.0) sec INR 0.9 (<1.2) APTT 25.8 (22.0-30.0) sec Sodium 135 L (137-145) mmol/L Potassium 4.0 (3.5-5.1) mmol/L Chloride 103 (98-107) mmol/L Carbon Dioxide 22 (22-30) mmol/L Anion Gap 10 mmol/L BUN 17 (7-17) mg/dL Creatinine 0.88 (0.52-1.04) mg/dL Est GFR (CKD-EPI)AfAm 83 (>60 ml/min/1.73 sqM) Est GFR (CKD-EPI)NonAf 72 (>60 ml/min/1.73 sqM) Glucose 182 H (74-99) mg/dL Calcium 10.0 (8.4-10.2) mg/dL Magnesium 2.1 (1.6-2.3) mg/dL Total Bilirubin 0.4 (0.2-1.3) mg/dL AST 30 (14-36) U/L ALT 31 (4-34) U/L Alkaline Phosphatase 85 (38-126) U/L Troponin I (0.000-0.034) ng/mL Total Protein 7.6 (6.3-8.2) g/dL Albumin 4.5 (3.5-5.0) g/dL 01/25/22 Range/Units 02:25 WBC (3.8-10.6) k/uL RBC (3.80-5.40) m/uL Hgb (11.4-16.0) gm/dL Hct (34.0-46.0) % MCV (80.0-100.0) fL MCH (25.0-35.0) pg MCHC (31.0-37.0) g/dL RDW (11.5-15.5) % Plt Count (150-450) k/uL MPV Neutrophils % % Lymphocytes % % Monocytes % % Eosinophils % % Basophils % % Neutrophils # (1.3-7.7) k/uL Lymphocytes # (1.0-4.8) k/uL Monocytes # (0-1.0) k/uL Eosinophils # (0-0.7) k/uL Basophils # (0-0.2) k/uL PT (9.0-12.0) sec INR (<1.2) APTT (22.0-30.0) sec Sodium (137-145) mmol/L Potassium (3.5-5.1) mmol/L Chloride (98-107) mmol/L Carbon Dioxide (22-30) mmol/L Anion Gap mmol/L BUN (7-17) mg/dL Creatinine (0.52-1.04) mg/dL Est GFR (CKD-EPI)AfAm (>60 ml/min/1.73 sqM) Est GFR (CKD-EPI)NonAf (>60 ml/min/1.73 sqM) Glucose (74-99) mg/dL Calcium (8.4-10.2) mg/dL Magnesium (1.6-2.3) mg/dL Total Bilirubin (0.2-1.3) mg/dL AST (14-36) U/L ALT (4-34) U/L Alkaline Phosphatase (38-126) U/L Troponin I <0.012 (0.000-0.034) ng/mL Total Protein (6.3-8.2) g/dL Albumin (3.5-5.0) g/dL Disposition Clinical Impression: Vertigo Disposition: HOME SELF-CARE Condition: Stable Instructions (If sedation given, give patient instructions): Dizziness (ED) Additional Instructions: Please return to the Emergency Department if symptoms worsen or any other concerns. Prescriptions: Meclizine [Antivert] 25 mg PO TID PRN #15 tab PRN Reason: Vertigo Is patient prescribed a controlled substance at d/c from ED?: No Referrals: Cyrus Peck DO [Primary Care Provider] - 1-2 days Time of Disposition: 08:18
--- NOTE | 2022-01-25 08:12 | CT ---
EXAMINATION TYPE: CT brain wo con DATE OF EXAM: 01/25/2022 COMPARISON: 03/07/2021 HISTORY: Dizziness CT DLP: 1142.[address] of the facial bones was performed in the axial and coronal planes. Bone and soft tissu e window settings are submitted. No significant soft tissue swelling is appreciated. I do not see evidence for displaced facial bone fracture or depressed facial bone fracture. The globes are intact. Paranasal sinuses are well-aerated. IMPRESSION: 1. No evidence for depressed or displaced facial bone fracture.
[2022-01-25 08:30] VITALS: BP 140/81; PULSE 79; RESP 18
== END 2022-01-25 08:30 | disposition home or self-care (01) ==
LOC: EC 02:15
DX: R42 Dizziness and giddiness (principal); K21.9 Gastro-esophageal reflux disease without esophagitis; E11.9 Type 2 diabetes mellitus without complications; I10 Essential (primary) hypertension; E78.5 Hyperlipidemia, unspecified; Z87.891 Personal history of nicotine dependence; Z91.09 Other allergy status, other than to drugs and biological substances; Z88.1 Allergy status to other antibiotic agents; Z88.6 Allergy status to analgesic agent; Z79.899 Other long term (current) drug therapy; Z79.84 Long term (current) use of oral hypoglycemic drugs
CPT/HCPCS: 36415; 70450; 80053; 83735; 84484; 85025; 85610; 85730; 93005; 99284

== ENCOUNTER 2022-06-05 17:34 | Emergency (ER) | payer BC ==
[2022-06-05 18:01] VITALS: TEMP 97.8
--- NOTE | 2022-06-05 18:20 | XR ---
EXAMINATION TYPE: XR KUB DATE OF EXAM: 06/05/2022 6:13 PM INDICATION: Patient age:Female; 62 years old; Reason for study: abdominal pain; COMPARISON: CT 08/24/2021. TECHNIQUE: One radiographic view of the abdomen was obtained. FINDINGS: The bowel gas pattern is nonspecific without dilated loops of small or large bowel. There i s no evidence for organomegaly or pneumoperitoneum. The osseous structures are intact. No abnormal calcifications are present. Fecal material and gas are demonstrated throughout the colon and rectum. Mild multilevel disc degeneration changes are seen throughout the spine. IMPRESSION: Nonspecific bowel gas pattern without radiographic evidence for acute process.
[2022-06-05 18:42] LABS: Appearance,Urine Clear (Clear); Bilirubin,Urine Negative (Negative); Blood,Urine Negative (Negative); Color,Urine Colorless; Glucose,Urine (UA) Negative (Negative); Ketones,Urine Negative (Negative); Leukocyte Esterase,Urine Negative (Negative); Nitrite,Urine Negative (Negative); PH, Urine 5.5 (5.0-8.0); Protein,Urine Negative (Negative); Specific Gravity,Urine 1.004 (1.001-1.035); Urobilinogen,Urine <2.0 mg/dL (<2.0)
[2022-06-05 20:36] LABS: Basophils # (A) 0.1 k/uL (0-0.2); Basophils % (A) 1 %; Eosinophils # (A) 0.1 k/uL (0-0.7); Eosinophils % (A) 1 %; HCT 43.6 % (34.0-46.0); HGB 15.5 gm/dL (11.4-16.0); Lymphocytes # (A) 3.3 k/uL (1.0-4.8); Lymphocytes % (A) 28 %; MCH 29.4 pg (25.0-35.0); MCHC 35.5 g/dL (31.0-37.0); MCV 82.7 fL (80.0-100.0); Mean Platelet Volume 7.6; Monocytes # (A) 0.6 k/uL (0-1.0); Monocytes % (A) 5 %; Neutrophils # (A) 7.5 k/uL (1.3-7.7); Neutrophils % (A) 64 %; Platelet Count 281 k/uL (150-450); RBC 5.27 m/uL (3.80-5.40); RDW 12.9 % (11.5-15.5); WBC 11.7 k/uL (3.8-10.6)
[2022-06-05 20:49] LABS: ALT 41 U/L (4-34); AST 36 U/L (14-36); African American GFR (CKD) 87 (>60 ml/min/1.73 sqM); Alkaline Phosphatase 90 U/L (38-126); Amylase 59 U/L (30-110); Anion Gap 13 mmol/L; Blood Urea Nitrogen 18 mg/dL (7-17); Calcium 10.8 mg/dL (8.4-10.2); Carbon Dioxide 25 mmol/L (22-30); Chloride 98 mmol/L (98-107); Glucose 136 mg/dL (74-99); Lipase 134 U/L (23-300); Non-African American GFR(CKD) 75 (>60 ml/min/1.73 sqM); Potassium 4.4 mmol/L (3.5-5.1); Sodium 136 mmol/L (137-145); Total Bilirubin 0.6 mg/dL (0.2-1.3); Total Protein 8.4 g/dL (6.3-8.2)
--- NOTE | 2022-06-05 21:30 | ED ---
Abdominal Pain HPI - General Chief Complaint: Abdominal Pain Stated Complaint: Diverticulitis issues Time Seen by Provider: 06/05/22 21:19 Source: patient, RN notes reviewed Mode of arrival: ambulatory Limitations: no limitations - History of Present Illness Initial Comments: This is a pleasant 62-year-old female comes the ER complaining of a constant, sharp, pinching type pain in the left lower quadrant which is been there for about 1 week. Nausea but no vomiting. Patient has not had any cardiopulmonary symptoms. Patient is diabetic and was somewhat concerned about DKA or urinary tract infection. Laboratory investigations done by the triage nurse reveal no evidence of either. Patient states that she has had a few bouts of diverticulitis previously and never has a lot of abdominal tenderness with the affliction. She denies any difficulties with bowel movements. No hematuria. No headache, no fever or chills, no changes in vision or hearing, no sore throat or difficulty with speech, no neck pain, no chest pain or shortness of breath, n o vomiting, no changes in urination or bowel movements, no numbness or tingling, no extremity pain, no skin rashes or lesions. Past medical, surgical, social, and family history reviewed. MD Complaint: abdominal pain - Related Data Home Medications Medication Instructions Recorded Confirmed amLODIPine [Norvasc] 7.5 mg PO HS 01/30/16 09/20/21 Vitamin C/Biotin [Hair, Skin and 1 tab PO DAILY 05/12/19 09/20/21 Nails Chew] Famotidine [Pepcid] 20 mg PO BID 03/23/20 09/20/21 Rosuvastatin Calcium [Crestor] 5 mg PO HS 03/23/20 09/20/21 Vitamin B Complex 1 cap PO DAILY 03/23/20 09/20/21 Cholecalciferol [Vitamin D3 (25 25 mcg PO DAILY 12/01/20 09/20/21 Mcg = 1000 Iu)] Vitamin E 1,000 unit PO DAILY 12/01/20 09/20/21 Fexofenadine HCl [Olga Allergy] 180 mg PO DAILY PRN 03/07/21 09/20/21 Spironolactone 25 mg PO DAILY 03/07/21 09/20/21 Fluticasone Nasal [place] [Flonase 2 spr EA NOSTRIL DAILY PRN 04/03/21 09/20/21 Nasal [place]] Ascorbic Acid [Vitamin C] 1,000 mg PO DAILY 08/09/21 09/20/21 Vitamin A [Vitamin A (8,000 Units 2,400 mcg PO DAILY 08/09/21 09/20/21 = 2,400 MCG)] Zinc 50 mg PO DAILY 08/09/21 09/20/21 sitaGLIPtin [Januvia] 50 mg PO W/SUPPER 08/09/21 09/20/21 Previous Rx's Medication Instructions Recorded Nitroglycerin Sl Tabs [Nitrostat] 0.4 mg SUBLINGUAL Q5M PRN #25 tab 05/13/19 Aspirin 81 mg PO DAILY 09/21/21 Meclizine [Antivert] 25 mg PO TID PRN #15 tab 01/25/22 Amoxic-Pot Clav 875-125Mg 1 tab PO Q12HR 1 Days #14 tab 06/05/22 [Augmentin 875-125] Allergies Allergy/AdvReac Type Severity Reaction Status Date / Time adhesive tape AdvReac Rash/Hives Verified 06/05/22 18:01 amoxicillin AdvReac Nausea & Verified 06/05/22 18:01 Vomiting W/O FOOD ciprofloxacin [From Cipro] AdvReac Nausea & Verified 06/05/22 18:01 Vomiting W/O FOOD ciprofloxacin HCl AdvReac Nausea & Verified 06/05/22 18:01 [From Cipro] Vomiting W/O FOOD ibuprofen AdvReac tachycardia Verified 06/05/22 18:01 Review of Systems ROS Statement: Those systems with pertinent positive or pertinent negative responses have been documented in the HPI. ROS Other: All systems not noted in ROS Statement are negative. Past Medical History Past Medical History: Diabetes Mellitus, GERD/Reflux, Hyperlipidemia, Hypertension Additional Past Medical History / Comment(s): diverticulosis, vertigo History of Any Multi-Drug Resistant Organisms: None Reported Past Surgical History: Hernia Repair Additional Past Surgical History / Comment(s): LEFT OVARY REMOVAL, Additional Past Anesthesia/Blood Transfusion Reaction / Comment(s): need alot of anesthesia, no blood transfusion Past Psychological History: No Psychological Hx Reported Smoking Status: Former smoker Past Alcohol Use History: Rare Past Drug Use History: None Reported - Past Family History Mother Family Medical History: Cancer, CVA/TIA, Hyperlipidemia, Hypertension, Myocardial Infarction ([place]) Additional Family Medical History / Comment(s): lung cancer Father History Unknown: Yes Family Medical History: Cancer, Mitral Valve Prolapse (MVP) Additional Family Medical History / Comment(s): leukemia General Exam - General Exam Comments Initial Comments: Patient does not appear to be ill or toxic. Vital signs reviewed. Limitations: no limitations General appearance: alert, in no apparent distress Head exam: Present: atraumatic, normocephalic, normal inspection Eye exam: Present: normal appearance, PERRL, EOMI. Absent: scleral icterus, conjunctival injection, periorbital swelling ENT exam: Present: normal exam, mucous membranes moist Neck exam: Present: normal inspection, full ROM. Absent: tenderness, meningismu s, lymphadenopathy Respiratory exam: Present: normal lung sounds bilaterally. Absent: respiratory distress, wheezes, rales, rhonchi, stridor, chest wall tenderness, accessory muscle use, decreased breath sounds, prolonged expiratory Cardiovascular Exam: Present: regular rate, normal rhythm, normal heart sounds. Absent: systolic murmur, diastolic murmur, rubs, gallop, clicks GI/Abdominal exam: Present: soft, tenderness (Patient has very minimal if any tenderness in the left lower quadrant. No tenderness elsewhere. No hepatosplenomegaly. No pulsatile mass.), normal bowel sounds. Absent: distended, guarding, rebound, rigid, organomegaly, mass, bruit, pulsatile mass, hernia Extremities exam: Present: normal inspection, full ROM, normal capillary refill. Absent: tenderness, pedal edema, joint swelling, calf tenderness Back exam: Present: normal inspection Neurological exam: Present: alert, oriented X3, CN II-XII intact Psychiatric exam: Present: normal affect, normal mood Skin exam: Present: warm, dry, intact, normal color. Absent: rash Course Vital Signs 06/05/22 17:58 Temperature 97.8 F Pulse Rate 94 Respiratory 20 Rate Blood Pressure 135/91 O2 Sat by Pulse 98 Oximetry - Reevaluation(s) Reevaluation #1: 06/05/22 23:19 Medical record is reviewed Symptoms unchanged Patient is informed of results and questions answered Patient in no distress Medical Decision Making - Medical Decision Making Given the patient's history of diverticulitis I'm going to go ahead and order a computed tomography scan. Ureterolithiasis is within the differential although the patient has no hematuria. Does not appear to be consistent with cardiopulmonary disease. No skin rash or lesions. Patient has mild elevation of her calcium. Ionized calcium also elevated. Patient possibly mildly dehydrated with a greater than 21 BUN to crashed ratio. Going to ensure that the patient has hydrating well at home. I'm going to treat the patient for diverticulitis as she does have left lower quadrant pain. Of co urse this could be due to some other etiology. I discussed this with the patient as the computed tomography scan was not definitive. Patient was hemodynamically stable. Patient in no distress at discharge. Instructed to call tomorrow morning to schedule follow-up appointment with her regular phy sician. Patient concurs with this treatment plan. Patient was told to return to the ER for any signs or symptoms worsen. Told to return immediately if any other problems arise. All questions answered. Treatment plan discussed. Patient in agreement Every effort has been made to ensure accuracy of this dictation. However, due to the limitations of electronic medical records and dictation devices, errors in charting still occur. The case was discussed in detail with ED attending physician. Presentation, findings, treatment plan discussed in detail. [employer] Head Dr. Colon - Lab Data Result diagrams: 06/05/22 20:25 06/05/22 20:25 Lab Results 06/05/22 06/05/22 06/05/22 Range/Units 18:32 20:25 20:25 WBC 11.7 H (3.8-10.6) k/uL RBC 5.27 (3.80-5.40) m/uL Hgb 15.5 (11.4-16.0) gm/dL Hct 43.6 (34.0-46.0) % MCV 82.7 (80.0-100.0) fL MCH 29.4 (25.0-35.0) pg MCHC 35.5 (31.0-37.0) g/dL RDW 12.9 (11.5-15.5) % Plt Count 281 (150-450) k/uL MPV 7.6 Neutrophils % 64 % Lymphocytes % 28 % Monocytes % 5 % Eosinophils % 1 % Basophils % 1 % Neutrophils # 7.5 (1.3-7.7) k/uL Lymphocytes # 3.3 (1.0-4.8) k/uL Monocytes # 0.6 (0-1.0) k/uL Eosinophils # 0.1 (0-0.7) k/uL Basophils # 0.1 (0-0.2) k/uL Sodium 136 L (137-145) mmol/L Potassium 4.4 (3.5-5.1) mmol/L Chloride 98 (98-107) mmol/L Carbon Dioxide 25 (22-30) mmol/L Anion Gap 13 mmol/L BUN 18 H (7-17) mg/dL Creatinine 0.84 (0.52-1.04) mg/dL Est GFR (CKD-EPI)AfAm 87 (>60 ml/min/1.73 sqM) Est GFR (CKD-EPI)NonAf 75 (>60 ml/min/1.73 sqM) Glucose 136 H (74-99) mg/dL Calcium 10.8 H (8.4-10.2) mg/dL Ionized Calcium [place] (4.5-5.3) mg/dL Total Bilirubin 0.6 (0.2-1.3) mg/dL AST 36 (14-36) U/L ALT 41 H (4-34) U/L Alkaline Phosphatase 90 (38-126) U/L Total Protein 8.4 H (6.3-8.2) g/dL Albumin 5.0 (3.5-5.0) g/dL Amylase 59 (30-110) U/L Lipase 134 (23-300) U/L Urine Color Colorless Urine Appearance Clear (Clear) Urine pH 5.5 (5.0-8.0) Ur Specific [place] 1.004 (1.001-1.035) Urine Protein Negative (Negative) Urine Glucose (UA) Negative (Negative) Urine Ketones Negative (Negative) Urine Blood Negative (Negative) Urine Nitrite Negative (Negative) Urine Bilirubin Negative (Negative) Urine Urobilinogen <2.0 (<2.0) mg/dL Ur Leukocyte Esterase Negative (Negative) Acetone, Qual Negative (Negative) 06/05/22 Range/Units 21:52 WBC (3.8-10.6) k/uL RBC (3.80-5.40) m/uL Hgb (11.4-16.0) gm/dL Hct (34.0-46.0) % MCV (80.0-100.0) fL MCH (25.0-35.0) pg MCHC (31.0-37.0) g/dL RDW (11.5-15.5) % Plt Count (150-450) k/uL MPV Neutrophils % % Lymphocytes % % Monocytes % % Eosinophils % % Basophils % % Neutrophils # (1.3-7.7) k/uL Lymphocytes # (1.0-4.8) k/uL Monocytes # (0-1.0) k/uL Eosinophils # (0-0.7) k/uL Basophils # (0-0.2) k/uL Sodium (137-145) mmol/L Potassium (3.5-5.1) mmol/L Chloride (98-107) mmol/L Carbon Dioxide (22-30) mmol/L Anion Gap mmol/L BUN (7-17) mg/dL Creatinine (0.52-1.04) mg/dL Est GFR (CKD-EPI)AfAm (>60 ml/min/1.73 sqM) Est GFR (CKD-EPI)NonAf (>60 ml/min/1.73 sqM) Glucose (74-99) mg/dL Calcium (8.4-10.2) mg/dL Ionized Calcium [place] 5.6 H (4.5-5.3) mg/dL Total Bilirubin (0.2-1.3) mg/dL AST (14-36) U/L ALT (4-34) U/L Alkaline Phosphatase (38-126) U/L Total Protein (6.3-8.2) g/dL Albumin (3.5-5.0) g/dL Amylase (30-110) U/L Lipase (23-300) U/L Urine Color Urine Appearance (Clear) Urine pH (5.0-8.0) Ur Specific [place] (1.001-1.035) Urine Protein (Negative) Urine Glucose (UA) (Negative) Urine Ketones (Negative) Urine Blood (Negative) Urine Nitrite (Negative) Urine Bilirubin (Negative) Urine Urobilinogen (<2.0) mg/dL Ur Leukocyte Esterase (Negative) Acetone, Qual (Negative) - Radiology Data Radiology results: report reviewed, image reviewed Disposition Clinical Impression: Left lower quadrant abdominal pain, Hypercalcemia, Mild dehydration Narrative: Presumed diverticulitis Disposition: HOME SELF-CARE Condition: Good Instructions (If sedation given, give patient instructions): Dehydration (ED), Abdominal Pain (ED), Hypercalcemia (ED) Additional Instructions: Drink plenty of fluids. Take antibiotics as directed. Call tomorrow morning to schedule follow-up appointment with your regular physician. Have your calcium reevaluated by your regular doctor. Follow-up with your regular physician as directed. Return to the ER immediately if any symptoms worsen, new symptoms arise, or any other problems develop. Prescriptions: Amoxic-Pot Clav 875-125Mg [Augmentin 875-125] 1 tab PO Q12HR 1 Days #14 tab Is patient prescribed a controlled substance at d/c from ED?: No Referrals: Cyrus Peck DO [Primary Care Provider] - 06/07/22 Time of Disposition: 23:22
--- NOTE | 2022-06-05 23:00 | CT ---
EXAMINATION TYPE: CT abdomen pelvis wo con DATE OF EXAM: 06/05/2022 COMPARISON: 08/24/2021 HISTORY: LLQ pain. hx of diverticulitis CT DLP: 795.3 mGycm Automated exposure control for dose reduction was used. Images obtained from the diaphragm to the floor the pelvis with no contrast. The lung bases are clear. No pleural effusion. Heart size is normal. No pericardial effusion. There i s small hiatal hernia. Liver spleen and stomach pancreas gallbladder appear intact. The bile ducts ar e not dilated. There is no adrenal mass. Kidneys show normal size and contour. No hydronephrosis. Ureters are nondil ated. No retroperitoneal adenopathy. The bladder distends smoothly. No inguinal hernia. Uterus is ant everted. No free fluid in the pelvis. No pelvic mass. There are numerous large bowel diverticula. No diverticulitis. Appendix appears normal. The lumbar ve rtebrae have normal alignment. No compression fracture. There is mild narrowing at L3-4 disc space. T he bony pelvis is intact. The hip joints are intact. There is no mesenteric edema. No ascites or free air. No sign of a bowel obstruction. IMPRESSION: Colonic diverticulosis without diverticulitis. Normal appendix. No adverse change.
[2022-06-05] MEDS ORDERED: AMOXIC-POT CLAV 875-125MG 1 EACH TAB PO STA (23:16)
[2022-06-05 23:31] VITALS: BP 125/95; PULSE 100; RESP 18
== END 2022-06-05 23:31 | disposition home or self-care (01) ==
LOC: EC 17:34
DX: K57.92 Diverticulitis of intestine, part unspecified, without perforation or abscess without bleeding (principal); I10 Essential (primary) hypertension; E11.9 Type 2 diabetes mellitus without complications; E07.9 Disorder of thyroid, unspecified; Z79.899 Other long term (current) drug therapy; Z87.891 Personal history of nicotine dependence; Z91.040 Latex allergy status; Z88.0 Allergy status to penicillin; Z88.8 Allergy status to other drugs, medicaments and biological substances
CPT/HCPCS: 36415; 74018; 74176; 80053; 81003; 82009; 82150; 82330; 83690; 85025; 99284

== ENCOUNTER 2022-11-01 18:46 | Emergency (ER) | payer BC ==
[2022-11-01 19:43] VITALS: RESP 18; TEMP 98.3
--- NOTE | 2022-11-01 21:18 | ED ---
General Adult HPI - General Chief complaint: Upper Respiratory Infection Stated complaint: hypertension Time Seen by Provider: 11/01/22 21:02 Source: patient Mode of arrival: ambulatory Limitations: no limitations - History of Present Illness Initial comments: Dictation was produced using yoonew dictation software. please excuse any grammatical, word or spelling errors. Chief Complaint: 62-year-old female presents to the emergency department for elevated blood pressure History of Present Illness: Patient 62-year-old female she has past medical history hypertension. She presents to the ER for one day of elevated blood pressure. Patient takes medications for blood pressure pill she states she takes amlodipine and spironolactone. Patient states that her blood pressures usually controlled with normal measurements when she is compliant with her medications. She starts to feel a little fuzzyheaded recently. She took her bl ood pressure and was found to be elevated to 130s pressure went home took blood pressure didn't was even higher at 160/95. She thought that perhaps this was the onset of vertigo so she took an Antivert. States that her head symptoms improved however her blood pressure remained the same. Denies any cough. No shortness of breath. No chest pain. No headache. No numbness and paresthesias to the arms or legs. The ROS documented in this emergency department record has been reviewed and confirmed by me. Those systems with pertinent positive or negative responses have been documented in the HPI. All other systems are other negative and/or noncontributory. PHYSICAL EXAM: General Impression: Alert and oriented x3, not in acute distress HEENT: Normocephalic atraumatic, extra-ocular movements intact, pupils equal and reactive to light bilaterally, mucous membranes moist. Cardiovascular: Heart regular rate and rhythm Chest: Able to complete full sentences, no retractions, no tachypnea Abdomen: abdomen soft, non-tender, non-distended, no organomegaly Musculoskeletal: Pulses present and equal in all extremities, no peripheral edema Motor: no focal deficits noted Neurological: CN II-XII grossly intact, no focal motor or sensory deficits noted Skin: Intact with no visualized rashes Psych: Normal affect and mood ED course: 62-year-old female presents emergency Department clinical p resentation consistent with asymptomatic hypertension. Vital signs upon arrival shows blood pressure 145/84, rest of vital signs within acceptable limits. Patient's clinical presentation does not suggest hypertensive emergency. His benign physical examination. Nursing notes and chart review was performed Was pt. sent in by a medical professional or institution (TONY Ag, BEAUTY SALES ADVISOR, urgent care, hospital, or prison...) When possible be specific @ -No Did you speak to anyone other than the patient for history (EMS, parent, family, police, friend...)? What history was obtained from this source @ -No Did you review nursing and triage notes (agree or disagree)? Why? @ -I reviewed and agree with nursing and triage notes Were old charts reviewed (outside hosp., previous admission, EMS record, old EKG, old radiological studies, urgent care reports/EKG's, prison records)? Report findings @ -No old charts were reviewed Differential Diagnosis (chest pain, altered mental status, abdominal pain women, abdominal pain men, vaginal bleeding, musculoskeletal, weakness, fever, dyspnea, syncope, headache, dizziness, GI bleed, back pain, seizure, CVA, palpatations, mental health)? @ -not applicable EKG interpreted by me (3pts min.). @ -None done X-rays interpreted by me (1pt min.). @ -None done CT interpreted by me (1pt min.). @ -None done U/S interpreted by me (1pt. min.). @ -None done What testing was considered but not performed or refused? (CT, X-rays, U/S, labs)? Why? @ -See above What meds were considered but not given or refused? Why? @ -See above Did you discuss the management of the patient with other professionals (professionals i.e. TONY [employer], BEAUTY SALES ADVISOR, lab, RT, psych nurse, clinical social worker, automotive machinist apprentice, teacher, occupational medicine officer, piano case and bench assembler)? Give summary @ -See above Was smoking cessation discussed for >3mins.? @ -No Was critical care preformed (if so, how long)? @ -No Were there social determinants of health that impacted care today? How? (Homelessness, low income, unemployed, alcoholism, drug addiction, transportation, low edu. Level, literacy, decrease access to med. care, intermediate, rehab)? @ -No Was there de-escalation of care discussed even if they declined (Discuss DNR or withdrawal of care, Hospice)? DNR status @ -No What co-morbidities impacted this encounter? (DM, HTN, Smoking, COPD, CAD, Cancer, CVA, ARF, Chemo, Hep., AIDS, mental health diagnosis, sleep apnea, morbid obesity)? @ -None Was patient admitted / discharged? Hospital course, mention meds given and route, prescriptions, significant lab abnormalities, going to OR and other pertinent info. @ -62-year-old female presents emergency part for asymptomatic hypertension. Basic blood work was obtained finding reassuring values. The pressure was monitored in the ER with improvement. Patient reevaluated bedside 11:40 PM finally similar admission. Patient has any complaints. Patient agreeable discharge. Advised follow-up with primary care doctor. Undiagnosed new problem with uncertain prognosis? @ -No Drug Therapy requiring intensive monitoring for toxicity (Heparin, Nitro, Insulin, Cardizem)? @ -No Were any procedures done? @ -No Diagnosis/symptom? Acute, or Chronic, or Acute on Chronic? Uncomplicated (without systemic symptoms) or Complicated (systemic symptoms)? @ -Acute uncomplicated asymptomatic hypertension Side effects of treatment? @ -No Exacerbation, Progression, or Severe Exacerbation? @ -No Poses a threat to life or bodily function? How? (Chest pain, [place], [place], pneumonia, PE, COPD, DKA, ARF, appy, cholecystitis, CVA, Diverticulitis, Homicidal, Suicidal, threat to staff... and all critical care pts) @ -No - Related Data Home Medications Medication Instructions Recorded Confirmed amLODIPine [Norvasc] 7.5 mg PO HS 01/30/16 11/01/22 Vitamin C/Biotin [Hair, Skin and 1 tab PO W/SUPPER 05/12/19 11/01/22 Nails Chew] Famotidine [Pepcid] 20 mg PO HS 03/23/20 11/01/22 Rosuvastatin Calcium [Crestor] 5 mg PO HS 03/23/20 11/01/22 Vitamin B Complex 1 cap PO DAILY 03/23/20 11/01/22 Cholecalciferol [Vitamin D3 (25 25 mcg PO W/SUPPER 12/01/20 11/01/22 Mcg = 1000 Iu)] Vitamin E 1,000 unit PO W/SUPPER 12/01/20 11/01/22 Spironolactone 25 mg PO DAILY 03/07/21 11/01/22 Ascorbic Acid [Vitamin C] 1,000 mg PO W/SUPPER 08/09/21 11/01/22 Vitamin A [Vitamin A (8,000 Units 2,400 mcg PO DAILY 08/09/21 11/01/22 = 2,400 MCG)] Zinc 50 mg PO W/SUPPER 08/09/21 11/01/22 sitaGLIPtin [Januvia] 50 mg PO W/SUPPER 08/09/21 11/01/22 Cinnamon Bark [Cinnamon] 500 mg PO DAILY 11/01/22 11/01/22 Magnesium Oxide [Magnesium] 500 mg PO W/SUPPER 11/01/22 11/01/22 [place]-3/Dha/Epa/Fish Oil [Fish Oil 1 cap PO W/SUPPER 11/01/22 11/01/22 1,000 mg Softgel] Allergies Allergy/AdvReac Type Severity Reaction Status Date / Time adhesive tape AdvReac Rash/Hives Verified 11/01/22 22:35 amoxicillin AdvReac Nausea & Verified 11/01/22 22:35 Vomiting W/O FOOD ciprofloxacin [From Cipro] AdvReac Nausea & Verified 11/01/22 22:35 Vomiting W/O FOOD ciprofloxacin HCl AdvReac Nausea & Verified 11/01/22 22:35 [From Cipro] Vomiting W/O FOOD ibuprofen AdvReac tachycardia Verified 11/01/22 22:35 Review of Systems ROS Statement: Those systems with pertinent positive or pertinent negative responses have been documented in the HPI. ROS Other: All systems not noted in ROS Statement are negative. Past Medical History Past Medical History: Diabetes Mellitus, GERD/Reflux, Hyperlipidemia, Hypertension Additional Past Medical History / Comment(s): diverticulosis, vertigo History of Any Multi-Drug Resistant Organisms: None Reported Past Surgical History: Hernia Repair Additional Past Surgical History / Comment(s): LEFT OVARY REMOVAL, Additional Past Anesthesia/Blood Transfusion Reaction / Comment(s): need alot of anesthesia, no blood transfusion Past Psychological History: No Psychological Hx Reported Smoking Status: Former smoker Past Alcohol Use History: Rare Past Drug Use History: None Reported - Past Family History Mother Family Medical History: Cancer, CVA/TIA, Hyperlipidemia, Hypertension, Myocardial Infarction ([place]) Additional Family Medical History / Comment(s): lung cancer Father History Unknown: Yes Family Medical History: Cancer, Mitral Valve Prolapse (MVP) Additional Family Medical History / Comment(s): leukemia General Exam Limitations: no limitations Course Vital Signs 11/01/22 11/01/22 19:38 22:47 Temperature 98.3 F Pulse Rate 91 84 Respiratory 18 18 Rate Blood Pressure 145/84 152/93 O2 Sat by Pulse 98 98 Oximetry Medical Decision Making - Lab Data Result diagrams: 11/01/22 21:24 11/01/22 21:24 Lab Results 11/01/22 11/01/22 Range/Units 21:24 21:24 WBC 7.2 (3.8-10.6) k/uL RBC 5.14 (3.80-5.40) m/uL Hgb 15.0 (11.4-16.0) gm/dL Hct 42.8 (34.0-46.0) % MCV 83.1 (80.0-100.0) fL MCH 29.2 (25.0-35.0) pg MCHC 35.1 (31.0-37.0) g/dL RDW 13.0 (11.5-15.5) % Plt Count 250 (150-450) k/uL MPV 6.9 Neutrophils % 63 % Lymphocytes % 29 % Monocytes % 5 % Eosinophils % 1 % Basophils % 1 % Neutrophils # 4.6 (1.3-7.7) k/uL Lymphocytes # 2.1 (1.0-4.8) k/uL Monocytes # 0.4 (0-1.0) k/uL Eosinophils # 0.1 (0-0.7) k/uL Basophils # 0.1 (0-0.2) k/uL Sodium 136 L (137-145) mmol/L Potassium 4.3 (3.5-5.1) mmol/L Chloride 100 (98-107) mmol/L Carbon Dioxide 28 (22-30) mmol/L Anion Gap 8 mmol/L BUN 15 (7-17) mg/dL Creatinine 0.86 (0.52-1.04) mg/dL Est GFR (CKD-EPI)AfAm 85 (>60 ml/min/1.73 sqM) Est GFR (CKD-EPI)NonAf 74 (>60 ml/min/1.73 sqM) Glucose 149 H (74-99) mg/dL Calcium 10.9 H (8.4-10.2) mg/dL Disposition Clinical Impression: Hypertension Disposition: HOME SELF-CARE Condition: Good Instructions (If sedation given, give patient instructions): Hypertension (ED) Is patient prescribed a controlled substance at d/c from ED?: No Referrals: Cyrus Peck DO [Primary Care Provider] - 1-2 days Time of Disposition: 23:41
[2022-11-01 22:03] LABS: Calcium 10.9 mg/dL (8.4-10.2); Potassium 4.3 mmol/L (3.5-5.1)
[2022-11-01 22:15] LABS: Basophils # (A) 0.1 k/uL (0-0.2); Basophils % (A) 1 %; Eosinophils # (A) 0.1 k/uL (0-0.7); Eosinophils % (A) 1 %; HCT 42.8 % (34.0-46.0); Lymphocytes # (A) 2.1 k/uL (1.0-4.8); Lymphocytes % (A) 29 %; MCH 29.2 pg (25.0-35.0); MCHC 35.1 g/dL (31.0-37.0); MCV 83.1 fL (80.0-100.0); Mean Platelet Volume 6.9; Monocytes # (A) 0.4 k/uL (0-1.0); Monocytes % (A) 5 %; Neutrophils # (A) 4.6 k/uL (1.3-7.7); Neutrophils % (A) 63 %; Platelet Count 250 k/uL (150-450); RBC 5.14 m/uL (3.80-5.40); WBC 7.2 k/uL (3.8-10.6)
[2022-11-01 22:49] VITALS: BP 152/93; PULSE 84
== END 2022-11-01 23:54 | disposition home or self-care (01) ==
LOC: EC 18:46
DX: I10 Essential (primary) hypertension (principal); E11.9 Type 2 diabetes mellitus without complications; E78.5 Hyperlipidemia, unspecified; K21.9 Gastro-esophageal reflux disease without esophagitis; Z79.899 Other long term (current) drug therapy; Z87.891 Personal history of nicotine dependence; Z88.0 Allergy status to penicillin; Z88.1 Allergy status to other antibiotic agents; Z88.6 Allergy status to analgesic agent; Z88.8 Allergy status to other drugs, medicaments and biological substances
CPT/HCPCS: 36415; 80048; 85025; 93005; 99283

== ENCOUNTER 2023-01-19 17:05 | Emergency (ER) | payer BC ==
[2023-01-19 17:10] VITALS: PULSE 87; RESP 18; TEMP 98.3
[2023-01-19] MEDS ORDERED: SODIUM CHLORIDE 0.9% 500 ML 500 ML IV STA (17:27)
--- NOTE | 2023-01-19 17:39 | ED ---
Abdominal Pain HPI - General Chief Complaint: Abdominal Pain Stated Complaint: diverticulitis Time Seen by Provider: 01/19/23 17:22 Source: patient Mode of arrival: ambulatory Limitations: no limitations - History of Present Illness Initial Comments: Patient is a 62-year-old female presenting with chief complaint of left-sided abdominal pain. Patient states that it feels like a cramping similar to previous episodes of diverticulitis. No nausea, vomiting, diarrhea, hematochezia, melena. No fevers or chills. No chest pain or difficulty breathing. - Related Data Home Medications Medication Instructions Recorded Confirmed amLODIPine [Norvasc] 7.5 mg PO HS 01/30/16 11/01/22 Vitamin C/Biotin [Hair, Skin and 1 tab PO W/SUPPER 05/12/19 11/01/22 Nails Chew] Famotidine [Pepcid] 20 mg PO HS 03/23/20 11/01/22 Rosuvastatin Calcium [Crestor] 5 mg PO HS 03/23/20 11/01/22 Vitamin B Complex 1 cap PO DAILY 03/23/20 11/01/22 Cholecalciferol [Vitamin D3 (25 25 mcg PO W/SUPPER 12/01/20 11/01/22 Mcg = 1000 Iu)] Vitamin E 1,000 unit PO W/SUPPER 12/01/20 11/01/22 Spironolactone 25 mg PO DAILY 03/07/21 11/01/22 Ascorbic Acid [Vitamin C] 1,000 mg PO W/SUPPER 08/09/21 11/01/22 Vitamin A [Vitamin A (8,000 Units 2,400 mcg PO DAILY 08/09/21 11/01/22 = 2,400 MCG)] Zinc 50 mg PO W/SUPPER 08/09/21 11/01/22 sitaGLIPtin [Januvia] 50 mg PO W/SUPPER 08/09/21 11/01/22 Cinnamon Bark [Cinnamon] 500 mg PO DAILY 11/01/22 11/01/22 Magnesium Oxide [Magnesium] 500 mg PO W/SUPPER 11/01/22 11/01/22 [place]-3/Dha/Epa/Fish Oil [Fish Oil 1 cap PO W/SUPPER 11/01/22 11/01/22 1,000 mg Softgel] Previous Rx's Medication Instructions Recorded Amoxic-Pot Clav 875-125Mg 1 tab PO BID 7 Days #14 tab 01/19/23 [Augmentin 875-125] Allergies Allergy/AdvReac Type Severity Reaction Status Date / Time adhesive tape AdvReac Rash/Hives Verified 01/19/23 17:10 amoxicillin AdvReac Nausea & Verified 01/19/23 17:10 Vomiting W/O FOOD ciprofloxacin [From Cipro] AdvReac Nausea & Verified 01/19/23 17:10 Vomiting W/O FOOD ciprofloxacin HCl AdvReac Nausea & Verified 01/19/23 17:10 [From Cipro] Vomiting W/O FOOD ibuprofen AdvReac tachycardia Verified 01/19/23 17:10 Review of Systems ROS Statement: Those systems with pertinent positive or pertinent negative responses have been documented in the HPI. ROS Other: All systems not noted in ROS Statement are negative. Past Medical History Past Medical History: Diabetes Mellitus, GERD/Reflux, Hyperlipidemia, Hypertension Additional Past Medical History / Comment(s): diverticulosis, vertigo History of Any Multi-Drug Resistant Organisms: None Reported Past Surgical History: Hernia Repair Additional Past Surgical History / Comment(s): LEFT OVARY REMOVAL, Additional Past Anesthesia/Blood Transfusion Reaction / Comment(s): need alot of anesthesia, no blood transfusion Past Psychological History: No Psychological Hx Reported Smoking Status: Former smoker Past Alcohol Use History: Rare Past Drug Use History: None Reported - Past Family History Mother Family Medical History: Cancer, CVA/TIA, Hyperlipidemia, Hypertension, Myocardial Infarction ([place]) Additional Family Medical History / Comment(s): lung cancer Father History Unknown: Yes Family Medical History: Cancer, Mitral Valve Prolapse (MVP) Additional Family Medical History / Comment(s): leukemia General Exam Limitations: no limitations General appearance: alert, in no apparent distress Head exam: Present: atraumatic, normocephalic, normal inspection Eye exam: Present: normal appearance, EOMI. Absent: scleral icterus, periorbital swelling Neck exam: Present: normal inspection, full ROM Respiratory exam: Present: normal lung sounds bilaterally. Absent: respiratory distress, wheezes, rales, rhonchi, stridor Cardiovascular Exam: Present: regular rate, normal rhythm, normal heart sounds. Absent: systolic murmur, diastolic murmur, rubs, gallop, clicks GI/Abdominal exam: Present: soft, tenderness. Absent: distended, guarding, rebound, rigid Neurological exam: Present: alert, oriented X3, CN II-XII intact Psychiatric exam: Present: normal affect, normal mood Skin exam: Present: warm, dry, intact, normal color. Absent: rash Course Vital Signs 01/19/23 01/19/23 17:07 20:29 Temperature 98.3 F Pulse Rate 87 Respiratory 18 18 Rate Blood Pressure 159/91 146/94 O2 Sat by Pulse 97 Oximetry Medical Decision Making - Medical Decision Making Was pt. sent in by a medical professional or institution (, PA, CANDLE POURER, urgent care, hospital, or longterm...) When possible be specific @ -No Did you speak to anyone other than the patient for history (EMS, parent, family, police, friend...)? What history was obtained from this source @ -No Did you review nursing and triage notes (agree or disagree)? Why? @ -I reviewed and agree with nursing and triage notes Were old charts reviewed (outside hosp., previous admission, EMS record, old EKG, old radiological studies, urgent care reports/EKG's, longterm records)? Report findings @ -No old charts were reviewed Differential Diagnosis (chest pain, altered mental status, abdominal pain women, abdominal pain men, vaginal bleeding, weakness, fever, dyspnea, syncope, headache, dizziness, GI bleed, back pain, seizure, CVA, palpatations, mental health, musculoskeletal)? @ -MDM Differential Abdominal Pain Women: Appendicitis, Cholecystitis, diverticulosis, ischemic bowel, pancreatitis, hepatitis, UTI, gastroenteritis, AAA, incarcerated hernia, bowel obstruction, constipation, inflammatory bowel, hepatitis, peptic ulcer disease, splenic infarction, perforated viscus, vulvitis, ovarian torsion, PID, kidney stone, placenta abruption... This is not meant to be an all-inclusive list EKG interpreted by me (3pts min.). @ -As above X-rays interpreted by me (1pt min.). @ -None done CT interpreted by me (1pt min.). @ -CT shows no acute process. There is colonic diverticulosis without definitive evidence for diverticulitis. Early/minimal acute diverticulitis cannot be excluded. Cholelithiasis and [id number] sized hiatal hernia also noted U/S interpreted by me (1pt. min.). @ -None done What testing was considered but not performed or refused? (CT, X-rays, U/S, labs)? Why? @ -None What meds were considered but not given or refused? Why? @ -None Did you discuss the management of the patient with other professionals (professionals i.e. , PA, CANDLE POURER, lab, RT, psych nurse, social media executive, lurer, teacher, air crew officer, caseworker)? Give summary @ -No Was smoking cessation discussed for >3mins.? @ -No Was critical care preformed (if so, how long)? @ -No Were there social determinants of health that impacted care today? How? (Homelessness, low income, unemployed, alcoholism, drug addiction, transportation, low edu. Level, literacy, decrease access to med. care, assisted, rehab)? @ -No Was there de-escalation of care discussed even if they declined (Discuss DNR or withdrawal of care, Hospice)? DNR status @ -No What co-morbidities impacted this encounter? (DM, HTN, Smoking, COPD, CAD, Cancer, CVA, ARF, Chemo, Hep., AIDS, mental health diagnosis, sleep apnea, morbid obesity)? @ -None Was patient admitted / discharged? Hospital course, mention meds given and route, prescriptions, significant lab abnormalities, going to OR and other pert inent info. @ -62-year-old female presenting with chief complaint of abdominal pain. States that it feels similar to previous episodes of diverticulitis. Lab work shows no leukocytosis or anemia. CT shows no definitive evidence for diverticulitis, however early disease cannot be excluded. Patient will be treated empirically with Augmentin. Follow-up with PCP. Report back to ER with any new or worsening symptoms. Discussed return parameters and answered all questions. Patient conveyed verbal understanding and agreed to the plan. I discussed this case in detail with my attending Dr. Schaffer Undiagnosed new problem with uncertain prognosis? @ -No Drug Therapy requiring intensive monitoring for toxicity (Heparin, Nitro, Insulin, Cardizem)? @ -No Were any procedures done? @ -No Diagnosis/symptom? @ -Abdominal pain Acute, or Chronic, or Acute on Chronic? @ -Acute Uncomplicated (without systemic symptoms) or Complicated (systemic symptoms)? @ -uncomplicated Side effects of treatment? @ -No Exacerbation, Progression, or Severe Exacerbation? @ -No Poses a threat to life or bodily function? How? (Chest pain, [place], [place], pneumonia, PE, COPD, DKA, ARF, appy, cholecystitis, CVA, Diverticulitis, Homicidal, Suicidal, threat to staff... and all critical care pts) @ -Low likelihood - Lab Data Result diagrams: 01/19/23 17:33 01/19/23 17:33 Lab Results 01/19/23 01/19/23 01/19/23 Range/Units 17:33 17:33 17:33 WBC 8.2 (3.8-10.6) k/uL RBC 5.22 (3.80-5.40) m/uL Hgb 14.9 (11.4-16.0) gm/dL Hct 43.4 (34.0-46.0) % MCV 83.3 (80.0-100.0) fL MCH 28.6 (25.0-35.0) pg MCHC 34.4 (31.0-37.0) g/dL RDW 13.1 (11.5-15.5) % Plt Count 296 (150-450) k/uL MPV 7.0 Neutrophils % 64 % Lymphocytes % 28 % Monocytes % 5 % Eosinophils % 1 % Basophils % 1 % Neutrophils # 5.2 (1.3-7.7) k/uL Lymphocytes # 2.3 (1.0-4.8) k/uL Monocytes # 0.4 (0-1.0) k/uL Eosinophils # 0.1 (0-0.7) k/uL Basophils # 0.1 (0-0.2) k/uL Sodium 135 L (137-145) mmol/L Potassium 4.0 (3.5-5.1) mmol/L Chloride 97 L (98-107) mmol/L Carbon Dioxide 26 (22-30) mmol/L Anion Gap 12 mmol/L BUN 12 (7-17) mg/dL Creatinine 0.82 (0.52-1.04) mg/dL Est GFR (CKD-EPI)AfAm 89 (>60 ml/min/1.73 sqM) Est GFR (CKD-EPI)NonAf 78 (>60 ml/min/1.73 sqM) Glucose 127 H (74-99) mg/dL Plasma Lactic Acid Emmett (0.7-2.0) mmol/L Calcium 10.4 H (8.4-10.2) mg/dL Total Bilirubin 0.6 (0.2-1.3) mg/dL AST 32 (14-36) U/L ALT 35 H (4-34) U/L Alkaline Phosphatase 87 (38-126) U/L Total Protein 8.4 H (6.3-8.2) g/dL Albumin 4.9 (3.5-5.0) g/dL Amylase 59 (30-110) U/L Lipase 179 (23-300) U/L Urine Color Colorless Urine Appearance Clear (Clear) Urine pH 6.5 (5.0-8.0) Ur Specific [place] 1.003 (1.001-1.035) Urine Protein Negative (Negative) Urine Glucose (UA) Negative (Negative) Urine Ketones Negative (Negative) Urine Blood Negative (Negative) Urine Nitrite Negative (Negative) Urine Bilirubin Negative (Negative) Urine Urobilinogen <2.0 (<2.0) mg/dL Ur Leukocyte Esterase Negative (Negative) 01/19/23 Range/Units 17:33 WBC (3.8-10.6) k/uL RBC (3.80-5.40) m/uL Hgb (11.4-16.0) gm/dL Hct (34.0-46.0) % MCV (80.0-100.0) fL MCH (25.0-35.0) pg MCHC (31.0-37.0) g/dL RDW (11.5-15.5) % Plt Count (150-450) k/uL MPV Neutrophils % % Lymphocytes % % Monocytes % % Eosinophils % % Basophils % % Neutrophils # (1.3-7.7) k/uL Lymphocytes # (1.0-4.8) k/uL Monocytes # (0-1.0) k/uL Eosinophils # (0-0.7) k/uL Basophils # (0-0.2) k/uL Sodium (137-145) mmol/L Potassium (3.5-5.1) mmol/L Chloride (98-107) mmol/L Carbon Dioxide (22-30) mmol/L Anion Gap mmol/L BUN (7-17) mg/dL Creatinine (0.52-1.04) mg/dL Est GFR (CKD-EPI)AfAm (>60 ml/min/1.73 sqM) Est GFR (CKD-EPI)NonAf (>60 ml/min/1.73 sqM) Glucose (74-99) mg/dL Plasma Lactic Acid Emmett 1.3 (0.7-2.0) mmol/L Calcium (8.4-10.2) mg/dL Total Bilirubin (0.2-1.3) mg/dL AST (14-36) U/L ALT (4-34) U/L Alkaline Phosphatase (38-126) U/L Total Protein (6.3-8.2) g/dL Albumin (3.5-5.0) g/dL Amylase (30-110) U/L Lipase (23-300) U/L Urine Color Urine Appearance (Clear) Urine pH (5.0-8.0) Ur Specific Carson (1.001-1.035) Urine Protein (Negative) Urine Glucose (UA) (Negative) Urine Ketones (Negative) Urine Blood (Negative) Urine Nitrite (Negative) Urine Bilirubin (Negative) Urine Urobilinogen (<2.0) mg/dL Ur Leukocyte Esterase (Negative) Disposition Clinical Impression: Abdominal pain Disposition: HOME SELF-CARE Condition: Good Instructions (If sedation given, give patient instructions): Diverticulitis (ED), Abdominal Pain (ED) Additional Instructions: Follow-up with PCP. Report back to ER with any new or worsening symptoms. Prescriptions: Amoxic-Pot Clav 875-125Mg [Augmentin 875-125] 1 tab PO BID 7 Days #14 tab Is patient prescribed a controlled substance at d/c from ED?: No Referrals: Cyrus Peck DO [Primary Care Provider] - 1-2 days Time of Disposition: 20:11
[2023-01-19 17:57] LABS: Basophils # (A) 0.1 k/uL (0-0.2); Basophils % (A) 1 %; Eosinophils # (A) 0.1 k/uL (0-0.7); Eosinophils % (A) 1 %; HCT 43.4 % (34.0-46.0); HGB 14.9 gm/dL (11.4-16.0); Lymphocytes # (A) 2.3 k/uL (1.0-4.8); Lymphocytes % (A) 28 %; MCH 28.6 pg (25.0-35.0); MCHC 34.4 g/dL (31.0-37.0); MCV 83.3 fL (80.0-100.0); Monocytes # (A) 0.4 k/uL (0-1.0); Monocytes % (A) 5 %; Neutrophils # (A) 5.2 k/uL (1.3-7.7); Neutrophils % (A) 64 %; Platelet Count 296 k/uL (150-450); RBC 5.22 m/uL (3.80-5.40); RDW 13.1 % (11.5-15.5); WBC 8.2 k/uL (3.8-10.6)
[2023-01-19 18:01] LABS: Appearance,Urine Clear (Clear); Bilirubin,Urine Negative (Negative); Blood,Urine Negative (Negative); Color,Urine Colorless; Glucose,Urine (UA) Negative (Negative); Ketones,Urine Negative (Negative); Leukocyte Esterase,Urine Negative (Negative); Nitrite,Urine Negative (Negative); PH, Urine 6.5 (5.0-8.0); Protein,Urine Negative (Negative); Specific Gravity,Urine 1.003 (1.001-1.035); Urobilinogen,Urine <2.0 mg/dL (<2.0)
[2023-01-19 18:15] LABS: Albumin 4.9 g/dL (3.5-5.0); Calcium 10.4 mg/dL (8.4-10.2); Total Bilirubin 0.6 mg/dL (0.2-1.3); Total Protein 8.4 g/dL (6.3-8.2)
--- NOTE | 2023-01-19 19:12 | CT ---
EXAMINATION TYPE: CT abdomen pelvis w con CT DLP: 1499.6 mGycm, Automated exposure control for dose reduction was used. DATE OF EXAM: 01/19/2023 6:55 PM COMPARISON: CT abdomen pelvis most recent from 06/05/2022 . CLINICAL INDICATION:Female, 62 years old with history of L-sided abdominal pain; Left sided abdominal pain. Hx of diverticulitis. TECHNIQUE: Standard CT of the abdomen and pelvis following the administration of 100 cc of Isovue 3 00 IV contrast material. Coronal and sagittal reformats were performed. FINDINGS: LOWER CHEST: Unremarkable ABDOMEN LIVER: Unremarkable GALLBLADDER AND BILE DUCTS: Cholelithiasis. No biliary ductal dilatation. PANCREAS: Unremarkable. SPLEEN: Unremarkable. ADRENAL GLANDS: Unremarkable. KIDNEYS AND URETERS: No evidence of hydronephrosis or renal calculus. The kidneys enhance symmetrical ly without suspicious focal lesion. Contrast is demonstrated within both collecting systems on the de layed phase. PELVIS BLADDER: Unremarkable REPRODUCTIVE: Unremarkable. ABDOMEN & PELVIS STOMACH AND BOWEL: Small to moderate size hiatal hernia. Periampullary duodenal diverticulum measurin g up to 3 cm. Distal colonic diverticulosis without definitive evidence for acute diverticulitis. The appendix is within normal limits. No focal wall thickening or surrounding inflammatory changes. No e vidence of bowel obstruction. PERITONEUM: No evidence of pneumoperitoneum or free fluid. VASCULATURE: No evidence of aortic aneurysm. MUSCULOSKELETAL: No acute osseous abnormalities LYMPH NODES: No gross evidence for lymphadenopathy. SOFT TISSUE/ABDOMINAL WALL: Small fat filled umbilical hernia. IMPRESSION: 1. No acute abdominal/pelvic process. 2. Colonic diverticulosis without definitive evidence for acute diverticulitis. Early/minimal acute d iverticulitis cannot be excluded. 3. Cholelithiasis. 4. Small to moderate-sized hiatal hernia.
[2023-01-19 20:35] VITALS: BP 146/94
== END 2023-01-19 20:37 | disposition home or self-care (01) ==
LOC: EC 17:05
DX: K57.30 Diverticulosis of large intestine without perforation or abscess without bleeding (principal); K80.20 Calculus of gallbladder without cholecystitis without obstruction; K44.9 Diaphragmatic hernia without obstruction or gangrene; E78.5 Hyperlipidemia, unspecified; E11.9 Type 2 diabetes mellitus without complications; I10 Essential (primary) hypertension; Z87.891 Personal history of nicotine dependence; Z79.84 Long term (current) use of oral hypoglycemic drugs; Z79.899 Other long term (current) drug therapy; Z88.0 Allergy status to penicillin; Z88.6 Allergy status to analgesic agent
CPT/HCPCS: 36415; 80053; 82150; 83605; 83690; 85025; 81003; 74177; 99284; Q9967

== ENCOUNTER 2023-05-05 16:31 | Emergency (ER) | payer BC ==
[2023-05-05 17:02] VITALS: TEMP 98.7
[2023-05-05] MEDS ORDERED: ORPHENADRINE 30 MG/ML 2 ML VIAL IM STA (17:12)
[2023-05-05] MEDS ORDERED: DEXAMETHASONE SOD PHOSPHATE 10 MG/ML 1 ML VIAL IM STA (17:12)
[2023-05-05] MEDS: KETOROLAC 15 MG/ML 1 ML VIAL IM STA ×2 (17:28→17:29)
[2023-05-05] MEDS ORDERED: LIDOCAINE 5% PATCH TOPICAL SCH (17:30)
[2023-05-05 17:42] LABS: Appearance,Urine Clear (Clear); Bilirubin,Urine Negative (Negative); Blood,Urine Negative (Negative); Color,Urine Colorless; Glucose,Urine (UA) Negative (Negative); Ketones,Urine Negative (Negative); Leukocyte Esterase,Urine Negative (Negative); Nitrite,Urine Negative (Negative); PH, Urine 6.5 (5.0-8.0); Protein,Urine Negative (Negative); Specific Gravity,Urine 1.005 (1.001-1.035); Urobilinogen,Urine <2.0 mg/dL (<2.0)
[2023-05-05 18:41] LABS: Basophils % (A) 0 %; Eosinophils # (A) 0.1 k/uL (0-0.7); Eosinophils % (A) 2 %; HGB 14.9 gm/dL (11.4-16.0); Lymphocytes # (A) 2.5 k/uL (1.0-4.8); Lymphocytes % (A) 28 %; MCH 29.1 pg (25.0-35.0); MCHC 34.6 g/dL (31.0-37.0); MCV 84.1 fL (80.0-100.0); Mean Platelet Volume 7.1; Monocytes # (A) 0.4 k/uL (0-1.0); Monocytes % (A) 5 %; Neutrophils # (A) 5.9 k/uL (1.3-7.7); Neutrophils % (A) 65 %; Platelet Count 274 k/uL (150-450); RBC 5.11 m/uL (3.80-5.40); RDW 13.1 % (11.5-15.5)
[2023-05-05 18:51] LABS: ALT 33 U/L (4-34); AST 40 U/L (14-36); African American GFR (CKD) 74 (>60 ml/min/1.73 sqM); Albumin 4.8 g/dL (3.5-5.0); Alkaline Phosphatase 74 U/L (38-126); Anion Gap 9 mmol/L; Blood Urea Nitrogen 18 mg/dL (7-17); Calcium 11.3 mg/dL (8.4-10.2); Carbon Dioxide 27 mmol/L (22-30); Chloride 101 mmol/L (98-107); Glucose 96 mg/dL (74-99); Non-African American GFR(CKD) 64 (>60 ml/min/1.73 sqM); Potassium 4.8 mmol/L (3.5-5.1); Sodium 137 mmol/L (137-145); Total Bilirubin 0.7 mg/dL (0.2-1.3); Total Protein 8.3 g/dL (6.3-8.2)
--- NOTE | 2023-05-05 19:25 | CT ---
EXAMINATION TYPE: CT abdomen pelvis w con DATE OF EXAM: 05/05/2023 COMPARISON: 01/19/2023 HISTORY: low abdomen, back pain. CT DLP: 1309.1 mGycm Automated exposure control for dose reduction was used. CONTRAST: CT scan of the abdomen pelvis is performed with IV Contrast, patient injected with 100ml mL of Isovue 300. FINDINGS- LUNG BASES- No significant abnormality is appreciated. LIVER/GB- low attenuation throughout the liver compatible with hepatic steatosis. No definite galls tone seen on today's exam.. PANCREAS- No gross abnormality is seen. SPLEEN- No gross abnormality is seen. ADRENALS- No gross abnormality is seen. KIDNEYS/BLADDER- no hydronephrosis nephrolithiasis or renal mass. BOWEL- moderate-sized hiatal hernia. There is a duodenal diverticulum. Retained debris throughout th e colon. Appendix normal. Changes of diverticulosis LYMPH NODES- No greater than 1cm abdominal or pelvic lymph nodes are appreciated. OSSEOUS STRUCTURES- multilevel degenerative change. OTHER- aorta of normal caliber. No free fluid or free air. IMPRESSION- 1. Diverticulosis. Cannot exclude a very mild acute diverticulitis within the sigmoid colon. 2. Hepatic steatosis. No definite gallstone seen on today's exam. 3. Correlate for constipation.
[2023-05-05 19:31] VITALS: BP 136/83; PULSE 73; RESP 19
--- NOTE | 2023-05-05 20:00 | ED ---
Back Pain HPI - General Chief Complaint: Back Pain/Injury Stated Complaint: lower back pain Time Seen by Provider: 05/05/23 17:08 Source: patient Limitations: no limitations - History of Present Illness Initial Comments: 62-year-old female presenting with chief complaint of back pain. Patient has been experiencing left-sided back pain which wraps around the hip. Patient is concerned that she may have a kidney stone, also states that this feels slightly similar to a past episode of diverticulitis. No fevers or chills. No nausea or vomiting. No diarrhea. No loss of bowel or bladder control. No saddle paresthesia. No injury or trauma. she admits to constipation. Patient does have history of chronic back pain. - Related Data Home Medications Medication Instructions Recorded Confirmed amLODIPine [Norvasc] 7.5 mg PO HS 01/30/16 05/05/23 Vitamin C/Biotin [Hair, Skin and 1 tab PO W/SUPPER 05/12/19 05/05/23 Nails Chew] Famotidine [Pepcid] 20 mg PO BID 03/23/20 05/05/23 Cholecalciferol [Vitamin D3 (25 50 mcg PO W/LUNCH 12/01/20 05/05/23 Mcg = 1000 Iu)] Spironolactone 25 mg PO DAILY 03/07/21 05/05/23 Ascorbic Acid [Vitamin C] 1,000 mg PO W/SUPPER 08/09/21 05/05/23 Vitamin A [Vitamin A (8,000 Units 2,400 mcg PO W/LUNCH 08/09/21 05/05/23 = 2,400 MCG)] Zinc 50 mg PO W/SUPPER 08/09/21 05/05/23 sitaGLIPtin [Januvia] 50 mg PO DAILY 08/09/21 05/05/23 Cinnamon Bark [Cinnamon] 500 mg PO W/LUNCH 11/01/22 05/05/23 Magnesium Oxide [Magnesium] 500 mg PO W/SUPPER 11/01/22 05/05/23 Cyanocobalamin (Vitamin B-12) 1,000 mcg PO W/LUNCH 05/05/23 05/05/23 [Vitamin B-12] Cyclobenzaprine [Flexeril] 10 mg PO Q8H PRN 05/05/23 05/05/23 Rosuvastatin [Crestor] 10 mg PO HS 05/05/23 05/05/23 Turmeric Root Extract [Turmeric] 500 mg PO W/SUPPER 05/05/23 05/05/23 traMADol HCL 50 mg PO Q6H PRN 05/05/23 05/05/23 Previous Rx's Medication Instructions Recorded Peg 3350 (236 gm/Btl) + Lytes 4,000 ml PO DIRECTED #1 each 05/05/23 [Golytely Lavage] Allergies Allergy/AdvReac Type Severity Reaction Status Date / Time methylprednisolone Allergy Rash/Hives Verified 05/05/23 18:50 adhesive tape AdvReac Rash/Hives Verified 05/05/23 18:50 amoxicillin AdvReac Nausea & Verified 05/05/23 18:50 Vomiting W/O FOOD ciprofloxacin [From Cipro] AdvReac Nausea & Verified 05/05/23 18:50 Vomiting W/O FOOD ciprofloxacin HCl AdvReac Nausea & Verified 05/05/23 18:50 [From Cipro] Vomiting W/O FOOD ibuprofen AdvReac tachycardia Verified 05/05/23 18:50 Review of Systems ROS Statement: Those systems with pertinent positive or pertinent negative responses have been documented in the HPI. ROS Other: All systems not noted in ROS Statement are negative. Past Medical History Past Medical History: Diabetes Mellitus, GERD/Reflux, Hyperlipidemia, Hypertension Additional Past Medical History / Comment(s): diverticulosis, vertigo History of Any Multi-Drug Resistant Organisms: None Reported Past Surgical History: Hernia Repair Additional Past Surgical History / Comment(s): LEFT OVARY REMOVAL, Additional Past Anesthesia/Blood Transfusion Reaction / Comment(s): need alot of anesthesia, no blood transfusion Past Psychological History: No Psychological Hx Reported Smoking Status: Former smoker Past Alcohol Use History: Rare Past Drug Use History: None Reported - Past Family History Mother Family Medical History: Cancer, CVA/TIA, Hyperlipidemia, Hypertension, Myocardial Infarction ([place]) Additional Family Medical History / Comment(s): lung cancer Father History Unknown: Yes Family Medical History: Cancer, Mitral Valve Prolapse (MVP) Additional Family Medical History / Comment(s): leukemia General Exam Limitations: no limitations General appearance: alert, in no apparent distress Head exam: Present: atraumatic, normocephalic, normal inspection Eye exam: Present: normal appearance, EOMI Neck exam: Present: normal inspection, full ROM Respiratory exam: Present: normal lung sounds bilaterally. Absent: respiratory distress, wheezes, rales, rhonchi, stridor Cardiovascular Exam: Present: regular rate, normal rhythm, normal heart sounds. Absent: systolic murmur, diastolic murmur, rubs, gallop, clicks GI/Abdominal exam: Present: soft. Absent: distended, tenderness, guarding, rebound, rigid Back exam: Present: normal inspection, tenderness Neurological exam: Present: alert, oriented X3, CN II-XII intact Psychiatric exam: Present: normal affect, normal mood Skin exam: Present: warm, dry, intact, normal color. Absent: rash Course Vital Signs 05/05/23 05/05/23 05/05/23 16:55 17:21 18:20 Temperature 98.7 F Pulse Rate 86 68 68 Respiratory 18 20 16 Rate Blood Pressure 141/77 140/85 143/97 O2 Sat by Pulse 99 98 98 Oximetry 05/05/23 19:28 Temperature Pulse Rate 73 Respiratory 19 Rate Blood Pressure 136/83 O2 Sat by Pulse 98 Oximetry Medical Decision Making - Medical Decision Making Was pt. sent in by a medical professional or institution (, PA, SOFTWARE CONFIGURATION ANALYST, urgent care, hospital, or assisted...) When possible be specific @ -No Did you speak to anyone other than the patient for history (EMS, parent, family, police, friend...)? What history was obtained from this source @ -No Did you review nursing and triage notes (agree or disagree)? Why? @ -I reviewed and agree with nursing and triage notes Were old charts reviewed (outside hosp., previous admission, EMS record, old EKG , old radiological studies, urgent care reports/EKG's, assisted records)? Report findings @ -No old charts were reviewed Differential Diagnosis (chest pain, altered mental status, abdominal pain women, abdominal pain men, vaginal bleeding, weakness, fever, dyspnea, syncope, headache, dizziness, GI bleed, back pain, seizure, CVA, palpatations, mental health, musculoskeletal)? @ - MDM Differential Back Pain: Strain, zoster, cauda equina syndrome, epidural abscess, vertebral osteomyelitis, discitis, fracture, subluxation, disc herniation, DJD, spinal stenosis, dissection, AAA, pancreatitis, peptic ulcer disease, pyelonephritis, kidney stone this is not meant to be an all-inclusive list. EKG interpreted by me (3pts min.). @ -As above X-rays interpreted by me (1pt min.). @ -None done CT interpreted by me (1pt min.). @ -Diverticulosis. Cannot exclude a very mild acute diverticulitis of the sigmoid colon. Hepatic steatosis. No definite gallstones seen on today's exam. Correlate for constipation. U/S interpreted by me (1pt. min.). @ -None done What testing was considered but not performed or refused? (CT, X-rays, U/S, labs)? Why? @ -None What meds were considered but not given or refused? Why? @ -None Did you discuss the management of the patient with other professionals (professionals i.e. , PA, SOFTWARE CONFIGURATION ANALYST, lab, RT, psych nurse, social work professor, flaker tender, teacher, landing signal officer, case packer and sealer)? Give summary @ -No Was smoking cessation discussed for >3mins.? @ -No Was critical care preformed (if so, how long)? @ -No Were there social determinants of health that impacted care today? How? (Homelessness, low income, unemployed, alcoholism, drug addiction, transp ortation, low edu. Level, literacy, decrease access to med. care, custodial, rehab)? @ -No Was there de-escalation of care discussed even if they declined (Discuss DNR or withdrawal of care, Hospice)? DNR status @ -No What co-morbidities impacted this encounter? (DM, HTN, Smoking, COPD, CAD, Cancer, CVA, ARF, Chemo, Hep., AIDS, mental health diagnosis, sleep apnea, morbid obesity)? @ -None Was patient admitted / discharged? Hospital course, mention meds given and route, prescriptions, significant lab abnormalities, going to OR and other pertinent info. @ -62-year-old female presenting with chief complaint of back pain. No red flag symptoms. Physical examination is conducted. Lab work shows no leukocytosis or anemia. Urine shows no acute process. CT CT diverticulosis, cannot exclude mild diverticulitis. Given that the patient is afebrile, nausea or vomiting, no diarrhea, and no white count, she will be treated for constipation. She reports she has not had a bowel movement 2 days. She will trial of GoLYTELY at home. She has an upcoming appointment with her physician. Follow-up with PCP. Report back to ER with any new or worsening symptoms. Discussed return parameters and answered all questions. Patient conveyed verbal understanding and agreed to the plan. I discussed this case in detail with my attending Dr. Colon Undiagnosed new problem with uncertain prognosis? @ -No Drug Therapy requiring intensive monitoring for toxicity (Heparin, Nitro, Insulin, Cardizem)? @ -No Were any procedures done? @ -No Diagnosis/symptom? @ -Constipation Acute, or Chronic, or Acute on Chronic? @ -Acute Uncomplicated (without systemic symptoms) or Complicated (systemic symptoms)? @ -Uncomplicated Side effects of treatment? @ -No Exacerbation, Progression, or Severe Exacerbation? @ -No Poses a threat to life or bodily function? How? (Chest pain, [place], [place], pneumonia, PE, COPD, DKA, ARF, appy, cholecystitis, CVA, Diverticulitis, Homicidal, Suicidal, threat to staff... and all critical care pts) @ -No - Lab Data Result diagrams: 05/05/23 18:20 05/05/23 18:20 Lab Results 05/05/23 05/05/23 05/05/23 Range/Units 17:21 18:20 18:20 WBC 9.0 (3.8-10.6) k/uL RBC 5.11 (3.80-5.40) m/uL Hgb 14.9 (11.4-16.0) gm/dL Hct 43.0 (34.0-46.0) % MCV 84.1 (80.0-100.0) fL MCH 29.1 (25.0-35.0) pg MCHC 34.6 (31.0-37.0) g/dL RDW 13.1 (11.5-15.5) % Plt Count 274 (150-450) k/uL MPV 7.1 Neutrophils % 65 % Lymphocytes % 28 % Monocytes % 5 % Eosinophils % 2 % Basophils % 0 % Neutrophils # 5.9 (1.3-7.7) k/uL Lymphocytes # 2.5 (1.0-4.8) k/uL Monocytes # 0.4 (0-1.0) k/uL Eosinophils # 0.1 (0-0.7) k/uL Basophils # 0.0 (0-0.2) k/uL Sodium 137 (137-145) mmol/L Potassium 4.8 (3.5-5.1) mmol/L Chloride 101 (98-107) mmol/L Carbon Dioxide 27 (22-30) mmol/L Anion Gap 9 mmol/L BUN 18 H (7-17) mg/dL Creatinine 0.96 (0.52-1.04) mg/dL Est GFR (CKD-EPI)AfAm 74 (>60 ml/min/1.73 sqM) Est GFR (CKD-EPI)NonAf 64 (>60 ml/min/1.73 sqM) Glucose 96 (74-99) mg/dL Plasma Lactic Acid Emmett (0.7-2.0) mmol/L Calcium 11.3 H (8.4-10.2) mg/dL Total Bilirubin 0.7 (0.2-1.3) mg/dL AST 40 H (14-36) U/L ALT 33 (4-34) U/L Alkaline Phosphatase 74 (38-126) U/L Total Protein 8.3 H (6.3-8.2) g/dL Albumin 4.8 (3.5-5.0) g/dL Urine Color Colorless Urine Appearance Clear (Clear) Urine pH 6.5 (5.0-8.0) Ur Specific [place] 1.005 (1.001-1.035) Urine Protein Negative (Negative) Urine Glucose (UA) Negative (Negative) Urine Ketones Negative (Negative) Urine Blood Negative (Negative) Urine Nitrite Negative (Negative) Urine Bilirubin Negative (Negative) Urine Urobilinogen <2.0 (<2.0) mg/dL Ur Leukocyte Esterase Negative (Negative) 05/05/23 Range/Units 18:20 WBC (3.8-10.6) k/uL RBC (3.80-5.40) m/uL Hgb (11.4-16.0) gm/dL Hct (34.0-46.0) % MCV (80.0-100.0) fL MCH (25.0-35.0) pg MCHC (31.0-37.0) g/dL RDW (11.5-15.5) % Plt Count (150-450) k/uL MPV Neutrophils % % Lymphocytes % % Monocytes % % Eosinophils % % Basophils % % Neutrophils # (1.3-7.7) k/uL Lymphocytes # (1.0-4.8) k/uL Monocytes # (0-1.0) k/uL Eosinophils # (0-0.7) k/uL Basophils # (0-0.2) k/uL Sodium (137-145) mmol/L Potassium (3.5-5.1) mmol/L Chloride (98-107) mmol/L Carbon Dioxide (22-30) mmol/L Anion Gap mmol/L BUN (7-17) mg/dL Creatinine (0.52-1.04) mg/dL Est GFR (CKD-EPI)AfAm (>60 ml/min/1.73 sqM) Est GFR (CKD-EPI)NonAf (>60 ml/min/1.73 sqM) Glucose (74-99) mg/dL Plasma Lactic Acid Emmett 1.1 (0.7-2.0) mmol/L Calcium (8.4-10.2) mg/dL Total Bilirubin (0.2-1.3) mg/dL AST (14-36) U/L ALT (4-34) U/L Alkaline Phosphatase (38-126) U/L Total Protein (6.3-8.2) g/dL Albumin (3.5-5.0) g/dL Urine Color Urine Appearance (Clear) Urine pH (5.0-8.0) Ur Specific [place] (1.001-1.035) Urine Protein (Negative) Urine Glucose (UA) (Negative) Urine Ketones (Negative) Urine Blood (Negative) Urine Nitrite (Negative) Urine Bilirubin (Negative) Urine Urobilinogen (<2.0) mg/dL Ur Leukocyte Esterase (Negative) Disposition Clinical Impression: Constipation Disposition: HOME SELF-CARE Condition: Good Instructions (If sedation given, give patient instructions): Constipation (ED) Additional Instructions: Follow-up with PCP. Report back to ER if any new or worsening symptoms. Prescriptions: Peg 3350 (236 gm/Btl) + Lytes [Golytely Lavage] 4,000 ml PO DIRECTED #1 each Is patient prescribed a controlled substance at d/c from ED?: No Referrals: Cyrus Peck DO [Primary Care Provider] - 1-2 days Time of Disposition: 20:00
== END 2023-05-05 20:16 | disposition home or self-care (01) ==
LOC: EC 16:31
DX: K76.0 Fatty (change of) liver, not elsewhere classified (principal); E11.9 Type 2 diabetes mellitus without complications; I10 Essential (primary) hypertension; E78.5 Hyperlipidemia, unspecified; Z79.899 Other long term (current) drug therapy; Z87.891 Personal history of nicotine dependence; Z88.0 Allergy status to penicillin; Z88.8 Allergy status to other drugs, medicaments and biological substances; Z79.84 Long term (current) use of oral hypoglycemic drugs; Z88.6 Allergy status to analgesic agent
CPT/HCPCS: 99284; 96372 ×2; 36415; 80053; 83605; 85025; 81003; 74177; J2360; J1885; Q9967

== ENCOUNTER 2023-08-21 17:08 | Emergency (ER) | payer BC ==
--- NOTE | 2023-08-21 17:22 | ED ---
General Adult HPI - General Source: RN notes reviewed <Jennifer Hill - Last Filed: 08/21/23 17:22> <Matt Sanabria - Last Filed: 08/21/23 22:34> - General Stated complaint: Abd Pain Time Seen by Provider: 08/21/23 17:22 - History of Present Illness Initial comments: 63-year-old female presents the emergency department with a chief complaint of left upper quadrant abdominal pain. She describes as crampy. She reports that this feels similar to her diverticulitis flareups. Denies any known fevers, blood in his stool, diarrhea. (Jennifer Hill) 63-year-old female presents to the ED with a chief complaint of abdominal pain. Patient states for the past few days has had pain of her left lower abdominal area and states pain is similar to history of diverticulitis. Denies changes in bowel or bladder habits. No fever or chills. No other complaints. (Matt Sanabria) - Related Data Home Medications Medication Instructions Recorded Confirmed amLODIPine [Norvasc] 7.5 mg PO HS 01/30/16 05/05/23 Vitamin C/Biotin [Hair, Skin and 1 tab PO W/SUPPER 05/12/19 05/05/23 Nails Chew] Famotidine [Pepcid] 20 mg PO BID 03/23/20 05/05/23 Cholecalciferol [Vitamin D3 (25 50 mcg PO W/LUNCH 12/01/20 05/05/23 Mcg = 1000 Iu)] Spironolactone 25 mg PO DAILY 03/07/21 05/05/23 Ascorbic Acid [Vitamin C] 1,000 mg PO W/SUPPER 08/09/21 05/05/23 Vitamin A [Vitamin A (8,000 Units 2,400 mcg PO W/LUNCH 08/09/21 05/05/23 = 2,400 MCG)] Zinc 50 mg PO W/SUPPER 08/09/21 05/05/23 sitaGLIPtin [Januvia] 50 mg PO DAILY 08/09/21 05/05/23 Cinnamon Bark [Cinnamon] 500 mg PO W/LUNCH 11/01/22 05/05/23 Magnesium Oxide [Magnesium] 500 mg PO W/SUPPER 11/01/22 05/05/23 Cyanocobalamin (Vitamin B-12) 1,000 mcg PO W/LUNCH 05/05/23 05/05/23 [Vitamin B-12] Cyclobenzaprine [Flexeril] 10 mg PO Q8H PRN 05/05/23 05/05/23 Rosuvastatin [Crestor] 10 mg PO HS 05/05/23 05/05/23 Turmeric Root Extract [Turmeric] 500 mg PO W/SUPPER 05/05/23 05/05/23 traMADol HCL 50 mg PO Q6H PRN 05/05/23 05/05/23 Previous Rx's Medication Instructions Recorded Peg 3350 (236 gm/Btl) + Lytes 4,000 ml PO DIRECTED #1 each 05/05/23 [Golytely Lavage] Meclizine [Antivert] 25 mg PO BID PRN #20 tab 05/16/23 Allergies Allergy/AdvReac Type Severity Reaction Status Date / Time methylprednisolone Allergy Rash/Hives Verified 05/05/23 18:50 adhesive tape AdvReac Rash/Hives Verified 05/05/23 18:50 ibuprofen AdvReac tachycardia Verified 05/05/23 18:50 Review of Systems ROS Other: All systems not noted in ROS Statement are negative. <Jennifer Hill - Last Filed: 08/21/23 17:22> ROS Other: All systems not noted in ROS Statement are negative. <Matt Sanabria - Last Filed: 08/21/23 22:34> ROS Statement: Those systems with pertinent positive or pertinent negative responses have been documented in the HPI. Past Medical History Past Medical History: Diabetes Mellitus, GERD/Reflux, Hyperlipidemia, Hypertension Additional Past Medical History / Comment(s): diverticulosis, vertigo History of Any Multi-Drug Resistant Organisms: None Reported Past Surgical History: Hernia Repair Additional Past Surgical History / Comment(s): LEFT OVARY REMOVAL, Additional Past Anesthesia/Blood Transfusion Reaction / Comment(s): need alot of anesthesia, no blood transfusion Past Psychological History: No Psychological Hx Reported Smoking Status: Former smoker Past Alcohol Use History: Rare Past Drug Use History: None Reported - Past Family History Mother Family Medical History: Cancer, CVA/TIA, Hyperlipidemia, Hypertension, Myocardial Infarction ([place]) Additional Family Medical History / Comment(s): lung cancer Father History Unknown: Yes Family Medical History: Cancer, Mitral Valve Prolapse (MVP) Additional Family Medical History / Comment(s): leukemia <Jennifer Hill - Last Filed: 08/21/23 17:22> General Exam <Jennifer Hill - Last Filed: 08/21/23 17:22> General appearance: alert Neck exam: Present: normal inspection Respiratory exam: Present: normal lung sounds bilaterally Cardiovascular Exam: Present: regular rate, normal rhythm GI/Abdominal exam: Present: soft (No TTP. No rebound haurding or rigidity) Neurological exam: Present: alert, oriented X3 Skin exam: Present: warm, dry <Matt Sanabria - Last Filed: 08/21/23 22:34> - General Exam Comments Initial Comments: Visual Physical Exam Vital signs reviewed General: Well-appearing, nontoxic, no acute distress. Head: Normocephalic, atraumatic Eyes: PERRLA, EOMI ENT: Airway patent Chest: Nonlabored breathing Skin: No visual rash, normal skin tone Neuro: Alert and oriented 3 Musculoskeletal: No gross abnormalities (Jennifer Hill) Course Vital Signs 08/21/23 17:20 Temperature 98.4 F Pulse Rate 88 Respiratory 18 Rate Blood Pressure 129/86 O2 Sat by Pulse 98 Oximetry Medical Decision Making <Jennifer Hill - Last Filed: 08/21/23 17:22> - Lab Data Result diagrams: 08/21/23 17:52 08/21/23 17:52 <Matt Sanabria - Last Filed: 08/21/23 22:34> - Medical Decision Making I performed the quick note portion of this exam, verbal signature Jennifer Hill PA-C (Jennifer Hill) Was pt. sent in by a medical professional or institution (TONY Ag, PORTER BATH, urgent care, hospital, or detention...) When possible be specific @ -No Did you speak to anyone other than the patient for history (EMS, parent, family, police, friend...)? What history was obtained from this source @ -No Did you review nursing and triage notes (agree or disagree)? Why? @ -I reviewed and agree with nursing and triage notes Were old charts reviewed (outside hosp., previous admission, EMS record, old EKG, old radiological studies, urgent care reports/EKG's, detention records)? Report findings @ -No old charts were reviewed Differential Diagnosis (chest pain, altered mental status, abdominal pain women, abdominal pain men, vaginal bleeding, weakness, fever, dyspnea, syncope, headache, dizziness, GI bleed, back pain, seizure, CVA, palpatations, mental health, musculoskeletal)? @ -Differential Abdominal Pain Women: Appendicitis, Cholecystitis, diverticulosis, ischemic bowel, pancreatitis, hepatitis, UTI, gastroenteritis, AAA, incarcerated hernia, bowel obstruction, constipation, inflammatory bowel, hepatitis, peptic ulcer disease, splenic in farction, perforated viscus, vulvitis, ovarian torsion, PID, kidney stone, placenta abruption, this is not meant to be an all-inclusive list EKG interpreted by me (3pts min.). @ -None X-rays interpreted by me (1pt min.). @ -None done CT interpreted by me (1pt min.). @ -CT of the abdomen and pelvis interpreted me showing no evidence of diverticulitis or other acute finding. U/S interpreted by me (1pt. min.). @ -None done What testing was considered but not performed or refused? (CT, X-rays, U/S, labs)? Why? @ -None What meds were considered but not given or refused? Why? @ -None Did you discuss the management of the patient with other professionals (professionals i.e. , PA, PORTER BATH, lab, RT, psych nurse, director social welfare, biofuels plant superintendent, teacher, security control room officer, case consultant)? Give summary @ -No Was smoking cessation discussed for >3mins.? @ -No Was critical care preformed (if so, how long)? @ -No Were there social determinants of health that impacted care today? How? (Homelessness, low income, unemployed, alcoholism, drug addiction, cartwright sportation, low edu. Level, literacy, decrease access to med. care, [facility], rehab)? @ -No Was there de-escalation of care discussed even if they declined (Discuss DNR or withdrawal of care, Hospice)? DNR status @ -No What co-morbidities impacted this encounter? (DM, HTN, Smoking, COPD, CAD, Cancer, CVA, ARF, Chemo, Hep., AIDS, mental health diagnosis, sleep apnea, morbid obesity)? @ -None Was patient admitted / discharged? Hospital course, mention meds given and route, prescriptions, significant lab abnormalities, going to OR and other pertinent info. @ -Discharge 63-year-old female presents to ED with complaints of left lower abdominal pain for the past few days. Laboratory studies include a CBC, CMP largely unremarkable. CT of the abdomen and pelvis revealed no acute process. At this time vital signs stable afebrile. Discharged home in stable condition with instructions to follow up with her PCP. Discussed return precautions with patient who verbalizes agreement. Undiagnosed new problem with uncertain prognosis? @ -No Drug Therapy requiring intensive monitoring for toxicity (Heparin, Nitro, Insulin, Cardizem)? @ -No Were any procedures done? @ -No Diagnosis/symptom? @ -Abdominal pain Acute, or Chronic, or Acute on Chronic? @ -Acute Uncomplicated (without systemic symptoms) or Complicated (systemic symptoms)? @ -Uncomplicated Side effects of treatment? @ -No Exacerbation, Progression, or Severe Exacerbation? @ -No Poses a threat to life or bodily function? How? (Chest pain, [place], [place], pneumonia, PE, COPD, DKA, ARF, appy, cholecystitis, CVA, Diverticulitis, Homicidal, Suicidal, threat to staff... and all critical care pts) @ -No (Matt Sanabria) - Lab Data Lab Results 08/21/23 08/21/23 08/21/23 Range/Units 17:52 17:52 17:52 WBC 9.3 (3.8-10.6) k/uL RBC 5.14 (3.80-5.40) m/uL Hgb 14.9 (11.4-16.0) gm/dL Hct 42.8 (34.0-46.0) % MCV 83.3 (80.0-100.0) fL MCH 29.0 (25.0-35.0) pg MCHC 34.9 (31.0-37.0) g/dL RDW 12.9 (11.5-15.5) % Plt Count 298 (150-450) k/uL MPV 6.8 Neutrophils % 65 % Lymphocytes % 28 % Monocytes % 4 % Eosinophils % 2 % Basophils % 1 % Neutrophils # 6.0 (1.3-7.7) k/uL Lymphocytes # 2.6 (1.0-4.8) k/uL Monocytes # 0.4 (0-1.0) k/uL Eosinophils # 0.1 (0-0.7) k/uL Basophils # 0.1 (0-0.2) k/uL Sodium 136 L (137-145) mmol/L Potassium 4.4 (3.5-5.1) mmol/L Chloride 95 L (98-107) mmol/L Carbon Dioxide 27 (22-30) mmol/L Anion Gap 14 mmol/L BUN 14 (7-17) mg/dL Creatinine 0.80 (0.52-1.04) mg/dL Est GFR (CKD-EPI)AfAm >90 (>60 ml/min/1.73 sqM) Est GFR (CKD-EPI)NonAf 80 (>60 ml/min/1.73 sqM) Glucose 123 H (74-99) mg/dL Plasma Lactic Acid Emmett 1.1 (0.7-2.0) mmol/L Calcium 11.4 H (8.4-10.2) mg/dL Total Bilirubin 0.7 (0.2-1.3) mg/dL AST 36 (14-36) U/L ALT 47 H (4-34) U/L Alkaline Phosphatase 95 (38-126) U/L Total Protein 8.4 H (6.3-8.2) g/dL Albumin 4.8 (3.5-5.0) g/dL Disposition <Jennifer Hill - Last Filed: 08/21/23 17:22> Is patient prescribed a controlled substance at d/c from ED?: No Time of Disposition: 22:34 <Matt Sanabria - Last Filed: 08/21/23 22:34> Clinical Impression: Abdominal pain Disposition: HOME SELF-CARE Additional Instructions: Please return to the Emergency Department if symptoms worsen or any other concerns. Please follow up with your primary care provider. Referrals: Cyrus Peck DO [Primary Care Provider] - 1-2 days
[2023-08-21 17:30] VITALS: BP 129/86; PULSE 88; RESP 18; TEMP 98.4
[2023-08-21 18:34] LABS: Basophils # (A) 0.1 k/uL (0-0.2); Basophils % (A) 1 %; Eosinophils # (A) 0.1 k/uL (0-0.7); Eosinophils % (A) 2 %; HCT 42.8 % (34.0-46.0); HGB 14.9 gm/dL (11.4-16.0); Lymphocytes # (A) 2.6 k/uL (1.0-4.8); Lymphocytes % (A) 28 %; MCHC 34.9 g/dL (31.0-37.0); MCV 83.3 fL (80.0-100.0); Mean Platelet Volume 6.8; Monocytes # (A) 0.4 k/uL (0-1.0); Monocytes % (A) 4 %; Neutrophils % (A) 65 %; Platelet Count 298 k/uL (150-450); RBC 5.14 m/uL (3.80-5.40); RDW 12.9 % (11.5-15.5); WBC 9.3 k/uL (3.8-10.6)
[2023-08-21 19:02] LABS: ALT 47 U/L (4-34); AST 36 U/L (14-36); African American GFR (CKD) >90 (>60 ml/min/1.73 sqM); Albumin 4.8 g/dL (3.5-5.0); Alkaline Phosphatase 95 U/L (38-126); Anion Gap 14 mmol/L; Blood Urea Nitrogen 14 mg/dL (7-17); Calcium 11.4 mg/dL (8.4-10.2); Carbon Dioxide 27 mmol/L (22-30); Chloride 95 mmol/L (98-107); Glucose 123 mg/dL (74-99); Non-African American GFR(CKD) 80 (>60 ml/min/1.73 sqM); Potassium 4.4 mmol/L (3.5-5.1); Sodium 136 mmol/L (137-145); Total Bilirubin 0.7 mg/dL (0.2-1.3); Total Protein 8.4 g/dL (6.3-8.2)
--- NOTE | 2023-08-21 20:33 | CT ---
EXAMINATION TYPE: CT abdomen pelvis w con DATE OF EXAM: 08/21/2023 COMPARISON: 05/05/2023 INDICATION: LLQ abdominal pain DLP: 1217.3 mGycm, Automated exposure control for dose reduction was used. CONTRAST: 100 ml mL of Isovue 300. Study performed without Oral Contrast TECHNIQUE: Axial images were obtained from above the diaphragm to the pubic rami in the axial plane a t 5 mm thick sections. Reconstructed images are reviewed on the computer in the coronal plane. FINDINGS: Limited CT sections are obtained the lung bases. The lung bases are clear. Small to moderate-sized hiatal hernia is present. CT ABDOMEN: Liver: There is mild diffuse decreased density through the liver relation spleen compatible with mild fatty infiltration of liver. Spleen: Normal Pancreas: Normal. Tail of pancreas is poorly visualized. Colon extends into the splenic hilum region. Adrenal glands: The adrenal glands are normal. Gallbladder: Normal Kidneys: No masses are evident. No hydronephrosis is present. No cysts are present. Delayed images were obtained through the kidneys, which remain unremarkable. Aorta: Normal Inferior vena cava: Normal. CT PELVIS: Loops of bowel within the abdomen and pelvis are normal. There are scattered diverticuli within t he colon. Multiple diverticuli within the sigmoid colon. No adjacent inflammatory changes to suggest acute diverticulitis is evident. Appendix: Normal as visualized. Urinary bladder: Normal. Genitourinary structures: Uterus is normal. Adnexa are unremarkable. Osseous structures: No suspicious lytic or sclerotic lesions. IMPRESSION: 1. Diverticulosis without acute diverticulitis. 2. Mild fatty infiltration liver. 3. Small to moderate size hiatal hernia.
== END 2023-08-21 22:42 | disposition home or self-care (01) ==
LOC: EC 17:08
DX: K57.30 Diverticulosis of large intestine without perforation or abscess without bleeding (principal); K76.0 Fatty (change of) liver, not elsewhere classified; E11.9 Type 2 diabetes mellitus without complications; E78.5 Hyperlipidemia, unspecified; I10 Essential (primary) hypertension; Z87.891 Personal history of nicotine dependence; Z88.6 Allergy status to analgesic agent; Z91.09 Other allergy status, other than to drugs and biological substances; Z88.8 Allergy status to other drugs, medicaments and biological substances; Z79.84 Long term (current) use of oral hypoglycemic drugs; Z79.899 Other long term (current) drug therapy
CPT/HCPCS: 36415; 80053; 83605; 85025; 74177; 99284; Q9967

== ENCOUNTER 2024-05-31 08:17 | Emergency (ER) | payer BC ==
--- NOTE | 2024-05-31 08:41 | ED ---
Abdominal Pain HPI - General Chief Complaint: Abdominal Pain Stated Complaint: side pain/pooping non stop Time Seen by Provider: 05/31/24 08:23 Source: patient, RN notes reviewed Mode of arrival: ambulatory Limitations: no limitations - History of Present Illness Initial Comments: This is a 64-year-old female who presents to the emergency department for abdominal pain. States that it started 2 days ago. The pain is in the left lower quadrant and feels similar to prior bouts of diverticulitis. Most recently had diverticulitis about 5 years ago. She has also been having more frequent bowel movements than normal and they are yellow in color. Denies any history of discolored stools like this. States that her stools are formed and not like diarrhea. However, she is just going much more frequently. States that she had 6 bowel movements yesterday. Denies any nausea/vomiting or fevers/chills. MD Complaint: abdominal pain - Related Data Home Medications Medication Instructions Recorded Confirmed amLODIPine [Norvasc] 7.5 mg PO HS 01/30/16 05/05/23 Vitamin C/Biotin [Hair, Skin and 1 tab PO W/SUPPER 05/12/19 05/05/23 Nails Chew] Famotidine [Pepcid] 20 mg PO BID 03/23/20 05/05/23 Cholecalciferol [Vitamin D3 (25 50 mcg PO W/LUNCH 12/01/20 05/05/23 Mcg = 1000 Iu)] Spironolactone 25 mg PO DAILY 03/07/21 05/05/23 Ascorbic Acid [Vitamin C] 1,000 mg PO W/SUPPER 08/09/21 05/05/23 Vitamin A [Vitamin A (8,000 Units 2,400 mcg PO W/LUNCH 08/09/21 05/05/23 = 2,400 MCG)] Zinc 50 mg PO W/SUPPER 08/09/21 05/05/23 sitaGLIPtin [Januvia] 50 mg PO DAILY 08/09/21 05/05/23 Cinnamon Bark [Cinnamon] 500 mg PO W/LUNCH 11/01/22 05/05/23 Magnesium Oxide [Magnesium] 500 mg PO W/SUPPER 11/01/22 05/05/23 Cyanocobalamin (Vitamin B-12) 1,000 mcg PO W/LUNCH 05/05/23 05/05/23 [Vitamin B-12] Cyclobenzaprine [Flexeril] 10 mg PO Q8H PRN 05/05/23 05/05/23 Rosuvastatin [Crestor] 10 mg PO HS 05/05/23 05/05/23 Turmeric Root Extract [Turmeric] 500 mg PO W/SUPPER 05/05/23 05/05/23 traMADol HCL 50 mg PO Q6H PRN 05/05/23 05/05/23 Previous Rx's Medication Instructions Recorded Peg 3350 (236 gm/Btl) + Lytes 4,000 ml PO DIRECTED #1 each 05/05/23 [Golytely Lavage] Meclizine [Antivert] 25 mg PO BID PRN #20 tab 05/16/23 Dicyclomine [Bentyl] 20 mg PO QID PRN #20 tablet 05/31/24 Allergies Allergy/AdvReac Type Severity Reaction Status Date / Time methylprednisolone Allergy Rash/Hives Verified 05/05/23 18:50 adhesive tape AdvReac Rash/Hives Verified 05/05/23 18:50 ibuprofen AdvReac tachycardia Verified 05/05/23 18:50 Review of Systems ROS Statement: Those systems with pertinent positive or pertinent negative responses have been documented in the HPI. ROS Other: All systems not noted in ROS Statement are negative. Past Medical History Past Medical History: Diabetes Mellitus, GERD/Reflux, Hyperlipidemia, Hypertension Additional Past Medical History / Comment(s): diverticulosis, vertigo History of Any Multi-Drug Resistant Organisms: None Reported Past Surgical History: Hernia Repair Additional Past Surgical History / Comment(s): LEFT OVARY REMOVAL, Additional Past Anesthesia/Blood Transfusion Reaction / Comment(s): need alot of anesthesia, no blood transfusion Past Psychological History: No Psychological Hx Reported Smoking Status: Former smoker Past Alcohol Use History: Rare Past Drug Use History: None Reported - Past Family History Mother Family Medical History: Cancer, CVA/TIA, Hyperlipidemia, Hypertension, Myocardial Infarction ([place]) Additional Family Medical History / Comment(s): lung cancer Father History Unknown: Yes Family Medical History: Cancer, Mitral Valve Prolapse (MVP) Additional Family Medical History / Comment(s): leukemia General Exam Limitations: no limitations General appearance: alert, in no apparent distress Head exam: Present: atraumatic, normocephalic, normal inspection Respiratory exam: Present: normal lung sounds bilaterally. Absent: respiratory distress, wheezes, rales, rhonchi, stridor Cardiovascular Exam: Present: regular rate, normal rhythm, normal heart sounds. Absent: systolic murmur, diastolic murmur, rubs, gallop, clicks GI/Abdominal exam: Present: soft, normal bowel sounds. Absent: distended, tenderness, guarding, rebound, rigid Neurological exam: Present: alert, oriented X3, CN II-XII intact Psychiatric exam: Present: normal affect, normal mood Skin exam: Present: warm, dry, intact, normal color. Absent: rash Course Vital Signs 05/31/24 08:19 Temperature 98.1 F Pulse Rate 100 Respiratory 20 Rate Blood Pressure 135/84 O2 Sat by Pulse 99 Oximetry Medical Decision Making - Medical Decision Making This is a 64 year old female who presents to the emergency department for abdominal pain. Was pt. sent in by a medical professional or institution? @ -No Did you speak to anyone other than the patient for history? @ -No Did you review nursing and triage notes? @ -Yes, and I agree, it is accurate with regards to the patient's symptoms. Were old charts reviewed? @ -No Differential Diagnosis? @ -Differential Abdominal Pain Women: Appendicitis, Cholecystitis, diverticulosis, ischemic bowel, pancreatitis, hepat itis, UTI, gastroenteritis, AAA, incarcerated hernia, bowel obstruction, constipation, inflammatory bowel, hepatitis, peptic ulcer disease, splenic infarction, perforated viscus, vulvitis, ovarian torsion, PID, kidney stone, placenta abruption, this is not meant to be an all-inclusive list EKG interpreted by me (3pts min.)? @ -Not obtained X-rays interpreted by me (1pt min.)? @ -Not obtained CT interpreted by me (1pt min.)? @ -CT scan of the abdomen and pelvis obtained. My interpretation identifies no evidence of bowel wall thickening or free air. U/S interpreted by me (1pt. min.)? @ -Not obtained What testing was considered but not performed? (CT, X-rays, U/S, labs)? Why? @ -None What meds were considered but not given? Why? @ -None Did you discuss the management of the patient with other professionals? @ -No Did you reconcile home meds? @ -No Was smoking cessation discussed for >3mins.? @ -No Was critical care preformed (if so, how long)? @ -No Were there social determinants of health that impacted care today? How? (Homelessness, low income, unemployed, alcoholism, drug addiction, transportation, low edu. Level, literacy, decrease access to med. care, [facility], rehab)? @ -No Was there de-escalation of care discussed even if they declined? (Discuss DNR or withdrawal of care, Hospice)? @ -No What co-morbidities impacted this encounter? (DM, HTN, Smoking, COPD, CAD, Cancer, CVA, Hep., AIDS, mental health diagnosis, sleep apnea, morbid obesity)? @ -Diverticulosis, DM Was patient admitted / discharged? @ -Discharged. Lab work unremarkable. Urinalysis negative for signs of infection. CT scan of the abdomen and pelvis reveals no acute process. Patient declined the need for any pain medication in the emergency department. Advised she follow-up with her primary care provider for reevaluation of symptoms. Prescription for Bentyl provided to see if that offers any benefit to her abdominal pain. Patient discharged home in stable condition. Case discussed with ED attending Dr. Julio. Return precautions reviewed in depth, the patient is instructed to return to the emergency department with any new, worsening, or concerning symptoms. Patient verbalized understanding. Undiagnosed new problem with uncertain prognosis? @ -None Drug Therapy requiring intensive monitoring for toxicity (Heparin, Nitro, Insulin, Cardizem)? @ -None Were any procedures done? @ -None Diagnosis/symptom? @ -Abdominal pain, discoloration of stool Acute, or Chronic, or Acute on Chronic? @ -Acute Uncomplicated (without systemic symptoms) or Complicated (systemic symptoms)? @ -Uncomplicated Side effects of treatment? @ -None Exacerbation, Progression, or Severe Exacerbation] @ -Not applicable Poses a threat to life or bodily function? @ -No - Lab Data Result diagrams: 05/31/24 08:52 05/31/24 08:52 Lab Results 05/31/24 05/31/24 05/31/24 Range/Units 08:52 08:52 08:52 WBC 7.4 (3.8-10.6) k/uL RBC 5.36 (3.80-5.40) m/uL Hgb 15.7 (11.4-16.0) gm/dL Hct 44.6 (34.0-46.0) % MCV 83.2 (80.0-100.0) fL MCH 29.2 (25.0-35.0) pg MCHC 35.1 (31.0-37.0) g/dL RDW 13.3 (11.5-15.5) % Plt Count 303 (150-450) k/uL MPV 7.0 Neutrophils % 68 % Lymphocytes % 25 % Monocytes % 5 % Eosinophils % 1 % Basophils % 0 % Neutrophils # 5.0 (1.3-7.7) k/uL Lymphocytes # 1.8 (1.0-4.8) k/uL Monocytes # 0.4 (0-1.0) k/uL Eosinophils # 0.1 (0-0.7) k/uL Basophils # 0.0 (0-0.2) k/uL Sodium 137 (137-145) mmol/L Potassium 4.5 (3.5-5.1) mmol/L Chloride 101 (98-107) mmol/L Carbon Dioxide 26 (22-30) mmol/L Anion Gap 10 mmol/L BUN 14 (7-17) mg/dL Creatinine 0.83 (0.52-1.04) mg/dL Est GFR (CKD-EPI)AfAm 87 (>60 ml/min/1.73 sqM) Est GFR (CKD-EPI)NonAf 76 (>60 ml/min/1.73 sqM) Glucose 194 H (74-99) mg/dL Plasma Lactic Acid [place] 1.4 (0.7-2.0) mmol/L Calcium 10.9 H (8.4-10.2) mg/dL Magnesium 2.0 (1.6-2.3) mg/dL Total Bilirubin 0.9 (0.2-1.3) mg/dL AST 29 (14-36) U/L ALT 27 (4-34) U/L Alkaline Phosphatase 73 (38-126) U/L Total Protein 8.5 H (6.3-8.2) g/dL Albumin 5.0 (3.5-5.0) g/dL Amylase 60 (30-110) U/L Lipase 156 (23-300) U/L Urine Color Urine Appearance (Clear) Urine pH (5.0-8.0) Ur Specific [place] (1.001-1.035) Urine Protein (Negative) Urine Glucose (UA) (Negative) Urine Ketones (Negative) Urine Blood (Negative) Urine Nitrite (Negative) Urine Bilirubin (Negative) Urine Urobilinogen (<2.0) mg/dL Ur Leukocyte Esterase (Negative) 05/31/24 Range/Units 08:53 WBC (3.8-10.6) k/uL RBC (3.80-5.40) m/uL Hgb (11.4-16.0) gm/dL Hct (34.0-46.0) % MCV (80.0-100.0) fL MCH (25.0-35.0) pg MCHC (31.0-37.0) g/dL RDW (11.5-15.5) % Plt Count (150-450) k/uL MPV Neutrophils % % Lymphocytes % % Monocytes % % Eosinophils % % Basophils % % Neutrophils # (1.3-7.7) k/uL Lymphocytes # (1.0-4.8) k/uL Monocytes # (0-1.0) k/uL Eosinophils # (0-0.7) k/uL Basophils # (0-0.2) k/uL Sodium (137-145) mmol/L Potassium (3.5-5.1) mmol/L Chloride (98-107) mmol/L Carbon Dioxide (22-30) mmol/L Anion Gap mmol/L BUN (7-17) mg/dL Creatinine (0.52-1.04) mg/dL Est GFR (CKD-EPI)AfAm (>60 ml/min/1.73 sqM) Est GFR (CKD-EPI)NonAf (>60 ml/min/1.73 sqM) Glucose (74-99) mg/dL Plasma Lactic Acid [place] (0.7-2.0) mmol/L Calcium (8.4-10.2) mg/dL Magnesium (1.6-2.3) mg/dL Total Bilirubin (0.2-1.3) mg/dL AST (14-36) U/L ALT (4-34) U/L Alkaline Phosphatase (38-126) U/L Total Protein (6.3-8.2) g/dL Albumin (3.5-5.0) g/dL Amylase (30-110) U/L Lipase (23-300) U/L Urine Color Colorless Urine Appearance Clear (Clear) Urine pH 5.5 (5.0-8.0) Ur Specific [place] 1.004 (1.001-1.035) Urine Protein Negative (Negative) Urine Glucose (UA) Negative (Negative) Urine Ketones Negative (Negative) Urine Blood Negative (Negative) Urine Nitrite Negative (Negative) Urine Bilirubin Negative (Negative) Urine Urobilinogen <2.0 (<2.0) mg/dL Ur Leukocyte Esterase Negative (Negative) - Radiology Data Radiology results: report reviewed, image reviewed Disposition Clinical Impression: Abdominal pain, Discoloration of stool Disposition: HOME SELF-CARE Instructions (If sedation given, give patient instructions): Abdominal Pain (ED) Additional Instructions: Return to the emergency department with any new, worsening, or concerning symptoms. You can try taking the Bentyl up to 4 times daily to see if that helps with your symptoms. Follow up with your primary care provider in 1-2 days. Prescriptions: Dicyclomine [Bentyl] 20 mg PO QID PRN #20 tablet PRN Reason: Gi Upset Is patient prescribed a controlled substance at d/c from ED?: No Referrals: Cyrus Peck DO [Primary Care Provider] - 1-2 days Time of Disposition: 11:26
[2024-05-31] MEDS: SODIUM CHLORIDE 0.9% 1,000 ML IV STA (08:51)
[2024-05-31] MEDS: KETOROLAC 15 MG/ML 1 ML VIAL IVP STA (08:59)
[2024-05-31 09:13] LABS: Appearance,Urine Clear (Clear); Bilirubin,Urine Negative (Negative); Blood,Urine Negative (Negative); Color,Urine Colorless; Glucose,Urine (UA) Negative (Negative); Ketones,Urine Negative (Negative); Leukocyte Esterase,Urine Negative (Negative); Nitrite,Urine Negative (Negative); PH, Urine 5.5 (5.0-8.0); Protein,Urine Negative (Negative); Specific Gravity,Urine 1.004 (1.001-1.035); Urobilinogen,Urine <2.0 mg/dL (<2.0)
[2024-05-31 09:26] LABS: Basophils % (A) 0 %; Eosinophils # (A) 0.1 k/uL (0-0.7); Eosinophils % (A) 1 %; HCT 44.6 % (34.0-46.0); HGB 15.7 gm/dL (11.4-16.0); Lymphocytes # (A) 1.8 k/uL (1.0-4.8); Lymphocytes % (A) 25 %; MCH 29.2 pg (25.0-35.0); MCHC 35.1 g/dL (31.0-37.0); MCV 83.2 fL (80.0-100.0); Monocytes # (A) 0.4 k/uL (0-1.0); Monocytes % (A) 5 %; Neutrophils % (A) 68 %; Platelet Count 303 k/uL (150-450); RBC 5.36 m/uL (3.80-5.40); RDW 13.3 % (11.5-15.5); WBC 7.4 k/uL (3.8-10.6)
[2024-05-31 10:03] LABS: ALT 27 U/L (4-34); AST 29 U/L (14-36); African American GFR (CKD) 87 (>60 ml/min/1.73 sqM); Alkaline Phosphatase 73 U/L (38-126); Amylase 60 U/L (30-110); Anion Gap 10 mmol/L; Blood Urea Nitrogen 14 mg/dL (7-17); Calcium 10.9 mg/dL (8.4-10.2); Carbon Dioxide 26 mmol/L (22-30); Chloride 101 mmol/L (98-107); Glucose 194 mg/dL (74-99); Lipase 156 U/L (23-300); Non-African American GFR(CKD) 76 (>60 ml/min/1.73 sqM); Potassium 4.5 mmol/L (3.5-5.1); Sodium 137 mmol/L (137-145); Total Bilirubin 0.9 mg/dL (0.2-1.3); Total Protein 8.5 g/dL (6.3-8.2)
--- NOTE | 2024-05-31 11:11 | CT ---
EXAMINATION TYPE: CT abdomen pelvis w con DATE OF EXAM: 05/31/2024 COMPARISON: 08/21/2023 HISTORY: LLQ pain, discolored bowel movements, orange and yellow. CT DLP: 1356.30 mGycm Automated exposure control for dose reduction was used. TECHNIQUE: Helical acquisition of images was performed from the lung bases through the pelvis. CONTRAST: Performed without Oral Contrast and with IV Contrast, patient injected with 100 mL of Isovue 300. FINDINGS: The lung bases are clear. There is a moderate hiatal hernia. The gallbladder is normal without distention, wall thickening, pericholecystic fluid or gallstones. T here is no biliary ductal dilatation. There is no focal mass or organomegaly involving the liver, pancreas, spleen or adrenal glands. There is mild fatty infiltration of the liver. There is no solid renal mass or hydronephrosis and there is homogeneous contrast enhancement of the r enal parenchyma. The caliber the abdominal aorta is normal is no retroperitoneal adenopathy or hemorr brett. The bowel loops are normal in caliber and there is no evidence of dilatation or obstruction. No infla mmatory changes are identified in the bowel wall or mesentery. There is moderate diverticulosis of th e descending and sigmoid colon without CT evidence of diverticulitis. There is no free intraperitoneal air or fluid. No pelvic mass, free fluid, abscess or adenopathy. The osseous structures and soft tissues are intact. IMPRESSION: 1. There is a stable moderate hiatal hernia. 2. Mild fatty infiltration liver. 3. Diverticulosis of the descending and sigmoid colon without CT evidence of acute diverticulitis. 4. No interval change compared to previous [facility], , 05/31/2024 11:08 AM
[2024-05-31 11:43] VITALS: BP 130/82; PULSE 75; RESP 18; TEMP 98
== END 2024-05-31 11:41 | disposition home or self-care (01) ==
LOC: EC 08:17
CPT/HCPCS: 36415; 74177; 80053; 81003; 82150; 83605; 83690; 83735; 85025; 96360; 96361; 99284

== ENCOUNTER 2024-08-05 15:53 | Emergency (ER) | payer BC ==
[2024-08-05 16:05] VITALS: RESP 18
--- NOTE | 2024-08-05 16:27 | ED ---
General Adult HPI - General Chief complaint: Back Pain/Injury Stated complaint: Back pain Time Seen by Provider: 08/05/24 16:02 Source: patient, RN notes reviewed Mode of arrival: ambulatory Limitations: no limitations - History of Present Illness Initial comments: This is a 64-year-old female presenting to the emergency department chief complaint of midthoracic back pain/ right shoulder pain that started this morning. She denies known trauma or injury to the back. Denies radiation of pain, extremity paresthesias, weakness. She denies chest pain, shortness of breath, difficulty breathing. States she does have a history of lumbar back spasms and this pain feels similar. she has not attempted to take any medications to alleviate symptoms. denies smoking history, history of [place], blood thinner use. - Related Data Home Medications Medication Instructions Recorded Confirmed amLODIPine [Norvasc] 7.5 mg PO HS 01/30/16 05/05/23 Vitamin C/Biotin [Hair, Skin and 1 tab PO W/SUPPER 05/12/19 05/05/23 Nails Chew] Famotidine [Pepcid] 20 mg PO BID 03/23/20 05/05/23 Cholecalciferol [Vitamin D3 (25 50 mcg PO W/LUNCH 12/01/20 05/05/23 Mcg = 1000 Iu)] Spironolactone 25 mg PO DAILY 03/07/21 05/05/23 Ascorbic Acid [Vitamin C] 1,000 mg PO W/SUPPER 08/09/21 05/05/23 Vitamin A [Vitamin A (8,000 Units 2,400 mcg PO W/LUNCH 08/09/21 05/05/23 = 2,400 MCG)] Zinc 50 mg PO W/SUPPER 08/09/21 05/05/23 sitaGLIPtin [Januvia] 50 mg PO DAILY 08/09/21 05/05/23 Cinnamon Bark [Cinnamon] 500 mg PO W/LUNCH 11/01/22 05/05/23 Magnesium Oxide [Magnesium] 500 mg PO W/SUPPER 11/01/22 05/05/23 Cyanocobalamin (Vitamin B-12) 1,000 mcg PO W/LUNCH 05/05/23 05/05/23 [Vitamin B-12] Cyclobenzaprine [Flexeril] 10 mg PO Q8H PRN 05/05/23 05/05/23 Rosuvastatin [Crestor] 10 mg PO HS 05/05/23 05/05/23 Turmeric Root Extract [Turmeric] 500 mg PO W/SUPPER 05/05/23 05/05/23 traMADol HCL 50 mg PO Q6H PRN 05/05/23 05/05/23 Previous Rx's Medication Instructions Recorded Peg 3350 (236 gm/Btl) + Lytes 4,000 ml PO DIRECTED #1 each 05/05/23 [Golytely Lavage] Meclizine [Antivert] 25 mg PO BID PRN #20 tab 05/16/23 Dicyclomine [Bentyl] 20 mg PO QID PRN #20 tablet 05/31/24 Allergies Allergy/AdvReac Type Severity Reaction Status Date / Time methylprednisolone Allergy Rash/Hives Verified 08/05/24 16:05 adhesive tape AdvReac Rash/Hives Verified 08/05/24 16:05 ibuprofen AdvReac tachycardia Verified 08/05/24 16:05 Review of Systems ROS Statement: Those systems with pertinent positive or pertinent negative responses have been documented in the HPI. ROS Other: All systems not noted in ROS Statement are negative. Past Medical History Past Medical History: Diabetes Mellitus, GERD/Reflux, Hyperlipidemia, Hyperte nsion Additional Past Medical History / Comment(s): diverticulosis, vertigo History of Any Multi-Drug Resistant Organisms: None Reported Past Surgical History: Hernia Repair Additional Past Surgical History / Comment(s): LEFT OVARY REMOVAL, Additional Past Anesthesia/Blood Transfusion Reaction / Comment(s): need alot of anesthesia, no blood transfusion Past Psychological History: No Psychological Hx Reported Smoking Status: Former smoker Past Alcohol Use History: Rare Past Drug Use History: None Reported - Past Family History Mother Family Medical History: Cancer, CVA/TIA, Hyperlipidemia, Hypertension, Myocardial Infarction ([place]) Additional Family Medical History / Comment(s): lung cancer Father History Unknown: Yes Family Medical History: Cancer, Mitral Valve Prolapse (MVP) Additional Family Medical History / Comment(s): leukemia General Exam - General Exam Comments Initial Comments: Visual Physical Exam Vital signs reviewed General: Well-appearing, nontoxic, no acute distress. Head: Normocephalic, atraumatic Eyes: PERRLA, EOMI ENT: Airway patent Chest: Nonlabored breathing Skin: No visual rash, normal skin tone Neuro: Alert and oriented 3 Musculoskeletal: No gross abnormalities Limitations: no limitations General appearance: alert, in no apparent distress Eye exam: Present: normal appearance, PERRL, EOMI. Absent: scleral icterus, conjunctival injection, periorbital swelling Neck exam: Present: normal inspection. Absent: tenderness, meningismus, lymphadenopathy Respiratory exam: Present: normal lung sounds bilaterally. Absent: respiratory distress, wheezes, rales, rhonchi, stridor Cardiovascular Exam: Present: regular rate, normal rhythm, normal heart sounds. Absent: systolic murmur, diastolic murmur, rubs, gallop, clicks GI/Abdominal exam: Present: soft, normal bowel sounds. Absent: distended, tenderness, guarding, rebound, rigid Extremities exam: Present: normal inspection, full ROM, normal capillary refill. Absent: tenderness, pedal edema, joint swelling, calf tenderness Back exam: Present: normal inspection, tenderness (right thoracic/posterior shoulder) Skin exam: Present: warm, dry, intact, normal color. Absent: rash Course Vital Signs 08/05/24 08/05/24 16:02 19:03 Temperature 98.5 F 98.1 F Pulse Rate 88 83 Respiratory 18 18 Rate Blood Pressure 150/91 164/96 O2 Sat by Pulse 97 99 Oximetry Medical Decision Making - Medical Decision Making Was pt. sent in by a medical professional or institution ([facility], [employer] OPERATOR, urgent care, hospital, or penitentiary...) When possible be specific @ -No Did you speak to anyone other than the patient for history (EMS, parent, family, police, friend...)? What history was obtained from this source @ -No Did you review nursing and triage notes (agree or disagree)? Why? @ -I reviewed and agree with nursing and triage notes Were old charts reviewed (outside hosp., previous admission, EMS record, old EKG, old radiological studies, urgent care reports/EKG's, penitentiary records)? Report findings @ -No old charts were reviewed Differential Diagnosis (chest pain, altered mental status, abdominal pain women, abdominal pain men, vaginal bleeding, weakness, fever, dyspnea, syncope, headache, dizziness, GI bleed, back pain, seizure, CVA, palpatations, mental health, musculoskeletal)? @ -Differential Back Pain: Strain, zoster, cauda equina syndrome, epidural abscess, vertebral osteomyelitis, discitis, fracture, subluxation, disc herniation, DJD, spinal stenosis, dissection, AAA, pancreatitis, peptic ulcer disease, pyelonephritis, kidney stone, this is not meant to be an all-inclusive list. EKG interpreted by me (3pts min.). @ -Completed at 1821 sinus rhythm with a ventricular rate of 74, parable 163, QRS 97, QTc 404. X-rays interpreted by me (1pt min.). @ -Chest and thoracic spine x-ray thoracic spine xray no acute osseous pathology or cardiopulmonary disease CT interpreted by me (1pt min.). @ -None done U/S interpreted by me (1pt. min.). @ -None done What testing was considered but not performed or refused? (CT, X-rays, U/S, labs)? Why? @ -None What meds were considered but not given or refused? Why? @ -None Did you discuss the management of the patient with other professionals (professionals i.e. , PA, [employer] OPERATOR, lab, RT, psych nurse, medical social worker, rifle case repairer, teacher, booking police officer, returned case inspector)? Give summary @ -No Was smoking cessation discussed for >3mins.? @ -No Was critical care preformed (if so, how long)? @ -No Were there social determinants of health that impacted care today? How? (Homelessness, low income, unemployed, alcoholism, drug addiction, transportation, low edu. Level, literacy, decrease access to med. care, prison, rehab)? @ -No Was there de-escalation of care discussed even if they declined (Discuss DNR or withdrawal of care, Hospice)? DNR status @ -No What co-morbidities impacted this encounter? (DM, HTN, Smoking, COPD, CAD, Cancer, CVA, ARF, Chemo, Hep., AIDS, mental health diagnosis, sleep apnea, morbid obesity)? @ -None Was patient admitted / discharged? Hospital course, mention meds given and route, prescriptions, significant lab abnormalities, going to OR and other pertinent info. @ -Discharge. 64 female presenting with thoracic back and right shoulder pain. Patient's initial vitals were unremarkable. She is noted to have tenderness to palpation of thoracic back and shoulder that is exacerbated with range of motion. EKG sinus rhythm. Patient was offered pain medication and muscle relaxants however was declined this time. X-ray of the thoracic spine and chest unremarkable. Normal clinical concern for an pathology at this time as patient's pain is likely secondary to musculoskeletal strain as it is exacerbated with range of motion and palpation. Recommend the patient follow-up with primary care provider in the next 24 to 48 hours for further evaluation. Recommend she continue to take Tylenol and Motrin as needed for pain relief in addition to patient for muscle aches that she has at home for her lumbar back pain. Discussed with Dr. Colon Undiagnosed new problem with uncertain prognosis? @ -No Drug Therapy requiring intensive monitoring for toxicity (Heparin, Nitro, Insulin, Cardizem)? @ -No Were any procedures done? @ -No Diagnosis/symptom? @ -Thoracic back pain, shoulder pain Acute, or Chronic, or Acute on Chronic? @ -Acute Uncomplicated (without systemic symptoms) or Complicated (systemic symptoms)? @ -Uncomplicated Side effects of treatment? @ -No Exacerbation, Progression, or Severe Exacerbation? @ -No Poses a threat to life or bodily function? How? (Chest pain, [place], [place], pneumonia, PE, COPD, DKA, ARF, appy, cholecystitis, CVA, Diverticulitis, Homicidal, Suicidal, threat to staff... and all critical care pts) @ -No Disposition Clinical Impression: Back pain Disposition: HOME SELF-CARE Condition: Good Instructions (If sedation given, give patient instructions): Back Pain (ED) Additional Instructions: Please return to the Emergency Department if symptoms worsen or any other concerns. Is patient prescribed a controlled substance at d/c from ED?: No Referrals: Cyrus Peck DO [Primary Care Provider] - 1-2 days Time of Disposition: 18:43
--- NOTE | 2024-08-05 16:51 | XR ---
EXAMINATION TYPE: XR chest 2V DATE OF EXAM: 08/05/2024 4:47 PM COMPARISON: Previous chest radiograph, most recently dated 09/20/2021. CLINICAL INDICATION: Female, 64 years old with history of pain; H TECHNIQUE: XR chest 2V Frontal and lateral views of the chest. FINDINGS: Lungs/Pleura: There is no evidence of pleural effusion, focal consolidation, or pneumothorax. Pulmonary vascularity: Unremarkable. Heart/mediastinum: Cardiomediastinal silhouette is unremarkable. Musculoskeletal: No acute osseous pathology. Other findings: None IMPRESSION: No acute cardiopulmonary disease/process. [facility], , 08/05/2024 4:49 PM
--- NOTE | 2024-08-05 17:00 | XR ---
EXAMINATION TYPE: XR thoracic spine 2V DATE OF EXAM: 08/05/2024 4:47 PM COMPARISON: None available. CLINICAL INDICATION: Female, 64 years old with history of pain; [facility] TECHNIQUE: XR thoracic spine 2V views of the spine in Frontal and lateral projections. FINDINGS: No evidence of acute fracture. Thoracic spine vertebral body heights appear grossly maintained. Multi level intervertebral disc space loss and anterior ossified formation. Multilevel facet arthropathy. P artially visualized lungs appear clear. There is normal alignment of the thoracic vertebral bodies. IMPRESSION: No acute osseous pathology. [facility], , 08/05/2024 4:58 PM
[2024-08-05 19:05] VITALS: BP 164/96; PULSE 83; TEMP 98.1
== END 2024-08-05 19:05 | disposition home or self-care (01) ==
LOC: EC 15:53
DX: M54.6 Pain in thoracic spine (principal); M25.511 Pain in right shoulder; Z87.891 Personal history of nicotine dependence; Z91.048 Other nonmedicinal substance allergy status; Z88.6 Allergy status to analgesic agent; Z88.8 Allergy status to other drugs, medicaments and biological substances
CPT/HCPCS: 71046; 72070; 93005; 99283